=== PATIENT | female | born 1955 | race Caucasian/White ===

== ENCOUNTER 2020-11-05 08:34 | Emergency (ER) | payer OTHER, SELFPAY ==
[2020-11-05 08:42] VITALS: BP 104/46; PULSE 74; RESP 16; TEMP 36.6; O2SAT 100
--- NOTE | 2020-11-05 08:49 | ED.EYEPROB ---
HPI - Eye Problem General Chief complaint: Eye Problems Stated complaint: swollen left eye Source: patient and RN notes reviewed Mode of arrival: ambulatory History of Present Illness HPI Narrative: This is a 65-year-old female who presented to urgent care with complaints of eye redness and watery left eye. That started approximately 1 week ago. Patient does have a history of having styes uses baby shampoo on a daily basis to prevent her stye. She notes that approximately 3 weeks ago she did develop a stye to her left upper lid that she treated with warm compression. She noted that the stye never resolved. She also notes that her left eye started to get red and watery approximately 1 week ago. She also notes that the redness migrated to her right eye. She did not do anything at home to treat her symptoms. Patient will be treated for stye in conjunctivitis. It is noted that she is allergic to erythromycin. She notes that when she take erythromycin she develops nausea and vomiting. She notes that she will be okay with the erythromycin eyedrops. She will discontinue the use of the eyedrops if she develops any unusual symptoms. She denies any visual disturbance. The patient denies SOB, CP, palpitation, extremity numbness, lightheadedness, dizziness, constipation, diarrhea, chills, or fever. MD chief complaint: eye redness Related Data Allergies Allergy/AdvReac Type Severity Reaction Status Date / Time erythromycin base Allergy Nausea Verified 11/05/20 09:51 Review of Systems Review of Systems: A 14 organ system Review of Systems was performed and pertinent positives included in the HPI, otherwise remaining ROS is negative. [facility] Family History Family History (Updated 11/05/20 @ 09:47 by BRIANNA Burch) Other Family history non-contributory Exam Narrative: GENERAL: This is a well-nourished, well-developed patient, in no apparent distress. HEAD: normocephalic, atraumatic. EYES: local inflammation and pustule at the margin of left upper eyelid, erythema bilateral eyes EARS: External ears normal, auditory canals clear and without drainage, TMs normal without perforation. Hearing grossly intact. NOSE: External nose normal with no obvious nasal discharge, nares without redness, no rhinorrhea. THROAT: Mucous membranes moist, posterior pharynx clear. NECK: Neck supple, non-tender without lymphadenopathy, masses or thyromegaly. CARDIOVASCULAR: Regular rate and rhythm without murmurs, gallops, or rubs. RESPIRATORY: Clear to auscultation. Breath sounds equal bilaterally. No wheezes, rales, or rhonchi. GASTROINTESTINAL: Abdomen soft, non-tender, nondistended. Bowel sounds are active. No hepato-splenomegaly, or palpable masses. No guarding. SKIN: warm, intact with no suspicious lesions or rash, good texture and turgor. NEURO: awake, alert, and oriented to person, place and time. There were no obvious focal neurologic abnormalities. Steady gait EXTREMITIES: Normal range of motion. No edema. No calf tenderness. Negative Homans sign bilaterally. BACK: Nontender without deformity or crepitance. No flank tenderness. Course Course Emergency Course: Patient will be treated for conjunctivitis and stye with IV antibiotic drops x7 days and instructed to use warm compression Vital Signs Vital signs: Vital Signs Temperature 97.8 F 11/05/20 08:42 Pulse Rate 74 11/05/20 08:42 Respiratory Rate 16 11/05/20 08:42 Blood Pressure 104/46 L 11/05/20 08:42 Pulse Oximetry 100 11/05/20 08:42 Temperature 97.8 F 11/05/20 08:42 Pulse Rate 74 11/05/20 08:42 Respiratory Rate 16 11/05/20 08:42 Blood Pressure 104/46 L 11/05/20 08:42 Pulse Oximetry 100 11/05/20 08:42 MDM - Eye Problem Differential Diagnosis Differential diagnosis: Likely corneal abrasion, conjunctivitis, acute iritis and periorbital cellulitis Discharge Plan Discharge Clinical Impression: Conjunctivitis Qualifiers: Conjunctivitis type: acu
== END 2020-11-05 09:51 | disposition home or self-care (01) ==
PROVIDERS: Emergency Provider Nurse Practitioner; PCP Family Medicine
DX: H10.33 Unspecified acute conjunctivitis, bilateral (principal); H00.014 Hordeolum externum left upper eyelid
CPT/HCPCS: 99213; G0463

== ENCOUNTER 2020-12-30 09:36 | Emergency (ER) | payer OTHER, SELFPAY ==
--- NOTE | ~2020-12-30 | XR_ITS ---
EXAMINATION: XR foot RT min 3V EXAM DATE: 12/30/2020 09:58 INDICATION: Fall, right foot plantar surface bruising. TECHNIQUE: Right foot dorsoplantar, lateral and oblique projections obtained and reviewed. There is no prior study for comparison. FINDINGS: Right foot surgical changes including bunionectomy, probable 1st metatarsal, proximal phal angeal osteotomies for hallux valgus correction. Also right 2nd proximal interphalangeal joint arthro desis, but joint space appears maintained without solid bone bridging and there is lucency surroundin g the screw bridging the interphalangeal joint which suggests loosening. There are no acute fracture s identified. IMPRESSION: Chronic right foot findings as above. Reviewed, dictated and finalized at location A.
[2020-12-30 09:46] VITALS: BP 105/64; PULSE 88; RESP 16; TEMP 36.9; O2SAT 99
--- NOTE | 2020-12-30 10:27 | ED.LOWEXIN ---
HPI - Extremity Injury (Lower) General Chief Complaint: Extremity Injury, Lower Stated Complaint: Right foot Pain Time Seen by Provider: 12/30/20 09:51 Source: patient and RN notes reviewed Mode of arrival: ambulatory Limitations: no limitations History of Present Illness HPI Narrative: Patient presents today complaining of right foot pain. States she fell off a 4 foot ladder yesterday injuring her the bottom of her right foot. States pain is only present with weightbearing. Denies numbness or tingling in the leg or foot. She is currently pain-free at rest, but increases to 10/10 with weightbearing. She took ibuprofen and applied ice yesterday with mild relief. Denies back pain. MD complaint: foot injury Related Data Home Medications Medication Instructions Recorded Confirmed No Home Medications 12/30/20 12/30/20 Allergies Allergy/AdvReac Type Severity Reaction Status Date / Time erythromycin base Allergy Nausea Verified 12/30/20 09:39 Review of Systems Review of Systems: CONSTITUTIONAL: Denies body aches, fever, chills, or sweats. EYES: Denies visual changes, redness, or discharge. ENT: Denies rhinorrhea, congestion, sore throat, or otalgia. CARDIOVASCULAR: Denies chest pain, palpitations, or edema. RESPIRATORY: Denies cough or dyspnea. GASTROINTESTINAL: Denies abdominal pain, nausea, vomiting, or diarrhea. GENITOURINARY: Denies dysuria or hematuria. SKIN: Denies rash, itching, or wounds. MUSCULOSKELETAL: Denies back pain, or myalgia.+ Right foot injury NEUROLOGIC: Denies headache, numbness, tingling, or weakness. PSYCH: Denies depression or anxiety. [facility] Past Medical History Medical History Skin cancer Surgical History Surgical History History of conization of cervix 3. Hx of colonoscopy 7.17.20 polyps/diverticulosis Family History Family History Father Hypertension Heart problem Cerebrovascular accident Mother Heart problem Grandparent Lung cancer Other Family history non-contributory Social History Social History Smoking status: Never smoker Alcohol intake: current Substance use: never Gender identity (if verbalized by the patient): Female Comments At time of signature, I have reviewed and agree with nursing past medical, surgical, social and family history unless otherwise noted. Please see nursing chart for further information. There is no relevant family history pertinent to the presenting complaint Exam Narrative: GENERAL: Well-appearing, well-nourished, and in no acute distress. HEAD: Normocephalic, atraumatic. EYES: EOMI. No redness or drainage. Conjunctivae normal. ENT: Mucous membranes pink and moist. NECK: Normal AROM. CHEST: No respiratory distress. EXTREMITIES:Right foot: Tenderness and ecchymosis to the plantar aspect of the foot, most tender to the heel and distal arch. Distal sensation intact. Capillary refill normal. Pedal pulse normal. Patient has a small amount of localized edema to the distal arch. SKIN: Warm, dry, no rash. Capillary refill normal. Normal skin turgor. NEURO: No focal deficits. Alert and oriented x3. Gait steady. PSYCH: Normal affect. No signs of depression or anxiety. Course Vital Signs Vital signs: Vital Signs Temperature 98.4 F 12/30/20 09:46 Pulse Rate 88 12/30/20 09:46 Respiratory Rate 16 12/30/20 09:46 Blood Pressure 105/64 12/30/20 09:46 Pulse Oximetry 99 12/30/20 09:46 Temperature 98.4 F 12/30/20 09:46 Pulse Rate 88 12/30/20 09:46 Respiratory Rate 16 12/30/20 09:46 Blood Pressure 105/64 12/30/20 09:46 Pulse Oximetry 99 12/30/20 09:46 Reviewed MDM - Extremity Injury (Lower) Differential Diagnosis Differential diagno
== END 2020-12-30 10:30 | disposition home or self-care (01) ==
PROVIDERS: Emergency Provider Nurse Practitioner; PCP Family Medicine
DX: S90.31XA Contusion of right foot, initial encounter (principal); W11.XXXA Fall on and from ladder, initial encounter; Z85.828 Personal history of other malignant neoplasm of skin
CPT/HCPCS: 73630; 99213; G0463

== ENCOUNTER 2021-04-01 12:46 | Outpatient (CLI) | payer OTHER, SELFPAY ==
--- NOTE | ~2021-04-01 | DEXA_ITS ---
Bone Density Report Name: NARA BRADLEY Age: 65 Sex: Female Ethnicity: White Date of : 1955 Indication: postmenopausal; height loss; Referring Provider: GLORIA JOSEPH Study: Bone densitometry was performed. Exam Date: April 01, 2021 Accession number: [id number] Bone Density: Region BMD T-score Z-score Classification AP Spine (L1, L4) 0.860 -1.6 0.2 Osteopenia Femoral Neck (Left) 0.670 -1.6 -0.1 Osteopenia Total Hip (Left) 0.887 -0.5 0.8 Normal Total Hip Bilateral Avg 0.858 -0.7 0.6 Normal Femoral Neck (Right) 0.664 -1.7 -0.1 Osteopenia Total Hip (Right) 0.828 -0.9 0.3 Normal World Health Organization criteria for BMD impression classify patients as: Normal (T-score at or above -1.0), Osteopenia (T-score between -1.0 and -2.5), or Osteoporosis (T-score at or below -2.5). 10-year Fracture Risk(1): Major Osteoporotic Fracture 8.0% Hip Fracture 1.0% Reported Risk Factors: [place] (), Neck BMD=0.664, BMI=19.5 (1) FRAX(R) Version 3.08. Fracture probability calculated for an untreated patient. Fracture probability may be lower if the patient has received treatment. Clinical Information Provided by Patient: Has used the following medications: Vitamin D, Calcium Patient maximum height was 64 Menopause Age: 53 Drinks caffeinated beverages Onset of menses at age 14 Number of children 1 Impression: The patient has low bone mass, based on the Right Femoral Neck T-score. The patient has an estimated ten-year risk of hip fracture of 1% and an estimated ten-year risk of major fracture of 8%, based on the WHO FRAX algorithm. Discussion: BONE DENSITY IS LOW AT ONE OR MORE SKELETAL SITES. This patient's lowest T-score is low at one or more skeletal sites. It meets the World Health Organization's (WHO) criteria for ?low bone mass? (T-score between -1.0 and -2.5). The patient's 10-year risk of fracture as calculated by FRAX is less than the threshold where pharmacological therapy is recommended by the National Osteoporosis Foundation (NOF). However, all treatment decisions require clinical judgment and consideration of individual patient factors, including patient preferences, comorbidities, previous drug use, risk factors not captured in the FRAX model (e.g., frailty, falls, vitamin D deficiency, increased bone turnover, interval significant decline in bone density) and possible under or overestimation of fracture risk by FRAX. The patient should follow a healthful lifestyle (good nutrition with adequate calcium and vitamin D, and appropriate weight-bearing exercise). Follow-Up: Consider repeating this study in 2 to 3 years to reassess this patient's status, or sooner if there is some new clinical indication. Reported by: RADHA on 04/01/2021 1:07:00 PM.
== END 2021-04-01 12:47 | disposition home or self-care (01) ==
LOC: ANHIMG 12:48
PROVIDERS: PCP Family Medicine; Visit Provider Family Medicine
DX: Z78.0 Asymptomatic menopausal state (principal); M85.88 Other specified disorders of bone density and structure, other site; M85.851 Other specified disorders of bone density and structure, right thigh; M85.852 Other specified disorders of bone density and structure, left thigh
CPT/HCPCS: 77080

== ENCOUNTER 2021-07-23 07:04 | Emergency (ER) | payer OTHER, SELFPAY ==
--- NOTE | ~2021-07-23 | XR_ITS ---
EXAMINATION: XR chest 2V EXAM DATE: 07/23/2021 07:46 INDICATION: Left-sided chest pain tingling down left arm. TECHNIQUE: Frontal and lateral projections of the chest obtained and reviewed. There is no prior darryl dy for comparison. FINDINGS: Mild hyperinflation. The lungs are clear. There are no pleural effusions. The cardiomedia stinal silhouette is within normal limits. There is no pneumothorax suspected. There are no osseous abnormalities identified. IMPRESSION: Mild hyperinflation. No acute cardiopulmonary findings. Reviewed, dictated and finalized at location A.
--- NOTE | 2021-07-23 07:06 | ECG_ITS ---
Measurements Intervals [place] Rate: 92 P: 79 NC: 161 QRS: 99 QRSD: 86 T: 51 QT: 349 QTc: 434 Interpretive Statements SINUS RHYTHM LOW-VOLTAGE QRS IN LIMB LEADS RSR' V1 AND V2 POSSIBLE LEFT ATRIAL ENLARGEMENT [-0.1mV P-WAVE IN V1/V2] BORDERLINE ECG NO PREVIOUS ECG AVAILABLE FOR COMPARISON Electronically Signed On 07-23-2021 16:48:45 CDT by Gasper Nelson M.D.
[2021-07-23 07:13] VITALS: BP 158/68; PULSE 94; RESP 20; TEMP 36.8; O2SAT 100
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
[2021-07-23] MEDS: LORazepam INJ (*CRX) 2 MG/ML VIAL 1 MG IV PUSH (07:39)
[2021-07-23 07:44] VITALS: O2SAT 100
[2021-07-23 07:47] LABS: Alanine Aminotransferase 28 U/L (4-35); Albumin Level 4.6 g/dL (3.5-5.1); Alkaline Phosphatase 69 U/L (38-126); Anion Gap 8 mmol/L (8-16); Aspartate Amino Transferase 30 U/L (14-36); Basophils Absolute Auto 0.1 K/mm3 (0.0-0.1); Basophils Percent Auto 0.8 % (0.2-1.2); Bilirubin,Total 0.5 mg/dL (0.2-1.3); Blood Urea Nitrogen 16 mg/dL (7-17); Calcium 9.9 mg/dL (8.4-10.2); Carbon Dioxide 24 mmol/L (22-30); Chloride 105 mmol/L (98-107); Eosinophils Absolute Auto 0.2 K/mm3 (0-0.3); Eosinophils Percent Auto 3.4 % (0-4.4); Estimated CRCL calculation 54 ml/min; Estimated Glomerular Filt Rate > 60; Glucose 127 mg/dL (65-110); Hematocrit 42.1 % (37.0-47.0); Hemoglobin 14.1 g/dL (12.0-15.0); Immature Granulocyte Absolute 0.01 K/mm3 (0.00-0.031); Immature Granulocyte Percent A 0.2 % (0-0.5); Lipase 200 U/L (23-300); Lymphocytes Absolute Auto 2.48 K/mm3 (0.9-3.2); Mean Corpuscular HGB Conc 33.5 g/dl (32-36); Mean Corpuscular Hemoglobin 30.9 pg (26-34); Mean Corpuscular Volume 92.3 fl (80-100); Mean Platelet Volume 10.3 fl (7.4-10.4); Monocytes Absolute Auto 0.5 K/mm3 (0.1-0.6); Monocytes Percent Auto 7.7 % (2.6-8.5); Neutrophils Percent Auto 47.9 % (45.5-73.1); Platelet Count Result 374 k/mm3 (150-375); Potassium 3.6 mmol/L (3.4-5.0); Red Blood Count 4.56 M/mm3 (4.2-5.4); Red Cell Distribution Width 12.8 % (11.5-14.5); Sodium 137 mmol/L (137-145); White Blood Count 6.2 K/mm3 (4.5-10.0)
[2021-07-23 07:48] LABS: Prothrombin Time 12.3 Seconds (11.1-14.7)
[2021-07-23 07:49] LABS: Partial Thromboplastin Time 23.3 SECONDS (22.3-36.8)
[2021-07-23 07:51] VITALS: BP 129/51; PULSE 73; RESP 12; O2SAT 97
[2021-07-23 07:59] LABS: Troponin I < 0.012 ng/mL (0.000-0.034)
[2021-07-23 08:37] VITALS: BP 117/61; PULSE 71; RESP 16; O2SAT 98
== END 2021-07-23 08:38 | disposition home or self-care (01) ==
PROVIDERS: Family Medicine; Emergency Provider Emergency Medicine; PCP Family Medicine
DX: F41.9 Anxiety disorder, unspecified (principal); R07.9 Chest pain, unspecified; Z85.828 Personal history of other malignant neoplasm of skin; R94.31 Abnormal electrocardiogram [ECG] [EKG]
CPT/HCPCS: 36415; 71046; 80053; 83690; 84484; 85025; 85610; 85730; 93005; 96374; 99284; J2060

== ENCOUNTER 2022-09-16 12:06 | Outpatient (NON) | payer OTHER, SELFPAY | END 2022-09-16 12:07 | disposition home or self-care (01) | LOC: ANHLAB 09-17 12:08 | PROVIDERS: PCP Family Medicine; Visit Provider Nurse Practitioner | DX: R22.9 Localized swelling, mass and lump, unspecified (principal) | CPT/HCPCS: 88304 ==

== ENCOUNTER 2023-01-10 13:54 | Outpatient (CLI) | payer OTHER, SELFPAY ==
--- NOTE | ~2023-01-10 | CT_ITS ---
EXAMINATION: CT abdomen pelvis wo con DATE: 01/10/2023 14:17 INDICATION: Left lower quadrant pain. Diarrhea. TECHNIQUE: Computed tomography (CT) of the abdomen and pelvis was performed without intravenous contr ast. The dose-length product was 191.19 mGy-cm. Automated exposure control and iterative reconstructi on technique were employed. COMPARISON: None. FINDINGS: Lung bases unremarkable. No significant pleural or pericardial effusion. There are partiall y characterized by bilateral breast implants. No significant vascular abnormality. No lymphadenopathy . The liver, spleen, pancreas, adrenal glands and kidneys are unremarkable. No hydronephrosis. There is moderate lumbar spondylosis. No acute osseous abnormality. Nonobstructive bowel gas pattern. No free air or free fluid. IMPRESSION: 1. No acute abdominal abnormality. Reviewed, dictated and finalized at location B.
== END 2023-01-10 13:55 | disposition home or self-care (01) ==
PROVIDERS: PCP Family Medicine; Visit Provider Nurse Practitioner Family
DX: R10.32 Left lower quadrant pain (principal); R19.7 Diarrhea, unspecified
CPT/HCPCS: 74176

== ENCOUNTER 2023-06-20 14:41 | Outpatient (CLI) | payer OTHER, SELFPAY ==
--- NOTE | ~2023-06-20 | CT_ITS ---
EXAMINATION: CT abdomen pelvis wo con DATE: 06/20/2023 15:09 INDICATION: Left lower quadrant abdominal pain. Diverticulitis TECHNIQUE: Computed tomography (CT) of the abdomen and pelvis was performed without intravenous contr ast. Automated exposure control and iterative reconstruction technique were employed. Exam dose: 211 .05 mGy-cm total exam DLP. COMPARISON: 01/20/2023 CT abdomen pelvis FINDINGS: Bilateral breast implants are noted. The lung bases are clear of infiltrate or consolidatio n. Normal heart size. No pericardial or pleural effusion. No hepatic, splenic, pancreatic, and adrenal or renal space-occupying mass lesion is evident. No bile duct or pancreatic duct dilatation is detected. No urinary tract calculus or hydroureteronephrosis. The urinary bladder, uterus and adnexal areas are unremarkable. Normal caliber and atherosclerotic calcification of the abdominal aorta. No intraperitoneal or retrop eritoneal or pelvic mass lesion or adenopathy or ascites is detected. No bowel obstruction or intraperitoneal free air. Multilevel degenerative disc disease of lumbar spine, most severe at L2-3 and L3-4. No suspicious ost eolytic or osteoblastic lesions are noted. IMPRESSION: No evidence of diverticulitis Reviewed, dictated and finalized at Location A. Reviewed, dictated and finalized at location B.
== END 2023-06-20 14:42 ==
PROVIDERS: PCP Family Medicine; Visit Provider Family Medicine
DX: K57.92 Diverticulitis of intestine, part unspecified, without perforation or abscess without bleeding (principal)
CPT/HCPCS: 74176

== ENCOUNTER 2023-11-25 08:27 | Outpatient (CLI) | payer OTHER, SELFPAY ==
--- NOTE | ~2023-11-25 | DEXA_ITS ---
Bone Density Report Name: NARA BRADLEY Age: 68 Sex: Female Ethnicity: White Date of : 1955 Indication: postmenopausal; screening for osteoporosis; height loss; cancer; Referring Provider: EDWIN, AARTI Hussein Study: Bone densitometry was performed. Exam Date: November 25, 2023 Accession number: [id number] Bone Density: Region BMD T-score Z-score Classification AP Spine(L1-L4) 1.016 -0.3 1.7 Normal Femoral Neck (Left) 0.688 -1.4 0.2 Osteopenia Total Hip (Left) 0.858 -0.7 0.7 Normal Femoral Neck (Right) 0.671 -1.6 0.1 Osteopenia Total Hip (Right) 0.811 -1.1 0.3 Osteopenia Total Hip Mean 0.835 -0.9 0.5 Normal World Health Organization criteria for BMD impression classify patients as: Normal (T-score at or above -1.0), Osteopenia (T-score between -1.0 and -2.5), or Osteoporosis (T-score at or below -2.5). 10-year Fracture Risk(1): Major Osteoporotic Fracture 8.4% Hip Fracture 1.3% Reported Risk Factors: [place] (), Neck BMD=0.671, BMI=19.0 (1) FRAX(R) Version 3.08. Fracture probability calculated for an untreated patient. Fracture probability may be lower if the patient has received treatment. Previous Exams: Region Exam Age BMD T-score BMD Change BMD Change Date g/cm2 vs Baseline vs Previous Total Hip(Left) 11/25/2023 68 0.858 -0.7 -0.029 (-3.2%) -0.029 (-3.2%) 04/01/2021 65 0.887 -0.5 Total Hip(Right) 11/25/2023 68 0.811 -1.1 -0.017 (-2.1%) -0.017 (-2.1%) 04/01/2021 65 0.828 -0.9 *Denotes significance at 95% confidence level, LSC for Total Hip = 0.027 g/cm2 # Denotes dissimilar scan types or analysis methods Clinical Information Provided by Patient: Has used the following medications: Vitamin D, Calcium Has the following medical conditions: Cancer Patient maximum height was 64 Menopause Age: 53 Drinks caffeinated beverages Onset of menses at age 15 Number of children 1 Impression: The patient has low bone mass, based on the Right Femoral Neck T-score. The patient has an estimated ten-year risk of hip fracture of 1.3% and an estimated ten-year risk of major fracture of 8.4%, based on the WHO FRAX algorithm. No significant bone loss was observed. Discussion: BONE DENSITY IS LOW AT ONE OR MORE SKELETAL SITES. This patient's lowest T-score is low at one or more skeletal sites. It meets the World Health Organization's (WHO) criteria for ?low bone mass? (T-score between -1.0 and -2.5). The patient's 10-year risk of fracture
== END 2023-11-25 08:28 | disposition home or self-care (01) ==
LOC: ANHIMG 08:28
PROVIDERS: PCP Family Medicine; Visit Provider Family Medicine
DX: Z78.0 Asymptomatic menopausal state (principal); Z13.820 Encounter for screening for osteoporosis; M85.852 Other specified disorders of bone density and structure, left thigh; M85.851 Other specified disorders of bone density and structure, right thigh
CPT/HCPCS: 77080

== ENCOUNTER 2023-12-07 18:48 | Emergency (ER) | payer OTHER, SELFPAY ==
--- NOTE | ~2023-12-07 | XR_ITS ---
EXAMINATION: XR chest 2V DATE: 12/07/2023 19:16 INDICATION: Chest pain. Upper respiratory infection. TECHNIQUE: Frontal and lateral views of the chest were obtained. COMPARISON: Chest 2 views 07/23/2021 FINDINGS: There is mild scarring at the lung apices. No pleural effusion or pneumothorax. The heart s ize is normal. Breast implants are noted. IMPRESSION: 1. No acute cardiopulmonary disease. Reviewed, dictated and finalized at location A.
--- NOTE | 2023-12-07 18:49 | ECG_ITS ---
Test Date: 2023-12-07 19:01:37 Measurements Intervals [place] Rate: 81 P: 80 MO: 163 QRS: 107 QRSD: 85 T: 79 QT: 372 QTc: 432 Interpretive Statements SINUS RHYTHM RIGHT AXIS DEVIATION RIGHT VENTRICULAR CONDUCTION DELAY DELAYED PRECORDIAL R/S TRANSITION LOW QRS VOLTAGE IN PRECORDIAL LEADS BORDERLINE ECG No previous ECG available for comparison Electronically Signed On 12-07-2023 20:06:37 CDT by Juan Diego Guevara D.O.
[2023-12-07 18:53] VITALS: BP 151/73; PULSE 83; RESP 16; TEMP 36.4; O2SAT 100
[2023-12-07 19:21] LABS: Basophils Absolute Auto 0.1 K/mm3 (0.0-0.1); Basophils Percent Auto 0.9 % (0.2-1.2); Eosinophils Absolute Auto 0.3 K/mm3 (0-0.3); Hematocrit 40.4 % (37.0-47.0); Hemoglobin 13.6 g/dL (12.0-15.0); Immature Granulocyte Absolute 0.01 K/mm3 (0.00-0.031); Immature Granulocyte Percent A 0.2 % (0-0.5); Lymphocytes Absolute Auto 2.42 K/mm3 (0.9-3.2); Lymphocytes Percent Auto 37.3 % (18.3-44.2); Mean Corpuscular HGB Conc 33.7 g/dl (32-36); Mean Corpuscular Hemoglobin 31.5 pg (26-34); Mean Corpuscular Volume 93.5 fl (80-100); Mean Platelet Volume 10.2 fl (7.4-10.4); Monocytes Absolute Auto 0.5 K/mm3 (0.1-0.6); Monocytes Percent Auto 7.1 % (2.6-8.5); Neutrophils Absolute Auto 3.3 K/mm3 (1.3-6.7); Neutrophils Percent Auto 50.5 % (45.5-73.1); Platelet Count Result 320 k/mm3 (150-375); Red Blood Count 4.32 M/mm3 (4.2-5.4); Red Cell Distribution Width 12.2 % (11.5-14.5); White Blood Count 6.5 K/mm3 (4.5-10.0)
[2023-12-07 19:31] LABS: Alanine Aminotransferase 25 U/L (6-35); Albumin Level 4.5 g/dL (3.5-5.1); Alkaline Phosphatase 45 U/L (38-126); Anion Gap 10 mmol/L (4-12); Aspartate Amino Transferase 30 U/L (14-36); Bilirubin,Total 0.3 mg/dL (0.2-1.3); Blood Urea Nitrogen 20 mg/dL (7-17); Calcium 9.7 mg/dL (8.4-10.2); Carbon Dioxide 28 mmol/L (22-30); Chloride 100 mmol/L (98-107); Estimated CRCL calculation 59 ml/min; Estimated Glomerular Filt Rate > 60; Glucose 109 mg/dL (65-110); Lipase 276 U/L (23-300); Sodium 138 mmol/L (137-145)
[2023-12-07 19:34] LABS: INR 0.9; Partial Thromboplastin Time 22.3 Seconds (22.3-36.8); Prothrombin Time 12.3 Seconds (11.1-14.7)
[2023-12-07 19:42] LABS: Troponin I < 0.012 ng/mL (0.000-0.034)
[2023-12-07 21:32] VITALS: BP 128/71; PULSE 83; RESP 14; O2SAT 100
[2023-12-07 21:40] VITALS: O2SAT 100
--- NOTE | 2023-12-07 21:41 | ECG_ITS ---
Test Date: 2023-12-07 21:44:17 Measurements Intervals [place] Rate: 79 P: 73 ME: 206 QRS: 84 QRSD: 94 T: 65 QT: 371 QTc: 428 Interpretive Statements SINUS RHYTHM DELAYED PRECORDIAL R/S TRANSITION BORDERLINE ECG Compared to ECG 12/07/2023 19:01:37 NO SIGNIFICANT CHANGE Electronically Signed On 12-08-2023 14:10:02 CDT by Juan Diego Guevara D.O.
[2023-12-07 21:58] VITALS: BP 114/71; PULSE 95; RESP 14; O2SAT 100
[2023-12-07 22:18] LABS: Troponin I < 0.012 ng/mL (0.000-0.034)
[2023-12-07 22:32] LABS: Influenza A QL RT-PCR Negative (Negative); Influenza B QL RT-PCR Negative (Negative); RSV RNA, RT-PCR Negative (Negative); SARS-CoV-2 RNA PCR Negative (Negative)
--- NOTE | 2023-12-07 22:41 | ED.GENADULT ---
HPI - General Adult General Chief complaint: Chest Pain Stated complaint: chest pain Time Seen by Provider: 12/07/23 21:31 History of Present Illness HPI narrative: This is a 60-year-old female presenting ED chief complaint of URI symptoms. Patient developed URI symptoms on November 20. She was eventually treated with Augmentin by primary care physician. However she is still feelin patient denies fevers chills shortness of breath, nausea vomiting diarrhea abdominal pain urinary symptoms. He has been eating and drinking well. Today she felt a small amount of chest tightness. The patient is concerned because she is just not getting better. Related Data Allergies Allergy/AdvReac Type Severity Reaction Status Date / Time erythromycin base Allergy Nausea Verified 05/19/21 08:57 [facility] Past Medical History Medical History Neoplasm of uncertain behavior of skin Skin cancer Surgical History Surgical History History of conization of cervix 3 Hx of colonoscopy 10.18. polyps/diverticulosis Family History Family History Father Hypertension Heart problem Cerebrovascular accident Mother Heart problem Grandparent Lung cancer Other Family history non-contributory Social History Social History Alcohol intake: current Substance use: never Living arrangements: with family Occupation/Education: retired Gender identity (if verbalized by the patient): Female Exam Narrative: APPEARANCE: Anxious but well-appearing Head: atraumatic. EYES: EOMI, NOSE: Atraumatic NECK: Trachea midline RESPIRATORY: No increased rate of breathing clear to auscultation CARDIOVASCULAR: RRR, no peripheral edema ABDOMINAL: Non-distended soft nontender MUSCULOSKELETAl: No obvious deformities NEURO: Alert. Moving 4/4 extremities SKIN:: Warm, dry. Normal color PSYCHIATRIC: Normal affect Course Vital Signs Vital signs: Vital Signs Temperature 97.6 F 12/07/23 18:53 Pulse Rate 83 12/07/23 18:53 Respiratory Rate 16 12/07/23 18:53 Blood Pressure 151/73 H 12/07/23 18:53 Pulse Oximetry 100 12/07/23 18:53 Oxygen Delivery Room Air 12/07/23 18:53 Temperature 97.6 F 12/07/23 18:53 Pulse Rate 95 12/07/23 21:58 Respiratory Rate 14 12/07/23 21:58 Blood Pressure 114/71 12/07/23 21:58 Pulse Oximetry 100 12/07/23 21:58 Oxygen Delivery Room Air 12/07/23 21:40 Medical Decision Making MDM Narrative Medical decision making narrative: -Course: 68-year-old female presenting with URI symptoms since November 20. Patient is well-appearing on exam with stable vital signs. White count is normal. Afebrile. Chest x-ray negative, viral swabs negative. Patient was given some fluids and symptom control is feeling well. Patient was reassured. Patient discharged follow-up with her primary care physician. Given return precautions. -DDX includes but is not limited to: URI, pneumonia, sinusitis, viral syndrome -Independent interpretation of studies: Labs reviewed Imaging reviewed Viral swabs negative Independent EKG interpretation: Rhythm [sinus], Rate [81], Basom -[normal], [place] -[normal], QRS [narrow], QTC [normal], T waves -[negative for concerning inversions], ST Segments - [Negative for concerning elevations] Final interpretations: [Normal Sinus Rhythm] -Interventions: Toradol, dexamethasone -Shared decision making / Disposition: Discharge -RX Motrin, Tylenol Vital Signs Vital Signs: Vital Signs Temperature 97.6 F 12/07/23 18:53 Pulse Rate 83 12/07/23 18:53 Respiratory Rate 16 12/07/23 18:53 Blood Pressure 151/73 H 12/07/23 18:53 Pulse Oximetry 100 12/07/23 18:53 Oxygen Delivery Room Air 12/07/23 18:53 Temperature 97.6 F 12/07/23 18:53 Pul
[2023-12-07 23:24] VITALS: BP 121/66; PULSE 72; RESP 14; TEMP 36.7; O2SAT 100
[2023-12-07] MEDS: KETOROLAC 15 MG/ML VIAL (*BKC) IV PUSH (23:24)
[2023-12-07] MEDS: dexAMETHasone SOD PHOS INJ 10 MG/ML 1 ML VIAL IV PUSH (23:24)
== END 2023-12-07 23:50 | disposition home or self-care (01) ==
PROVIDERS: Emergency Medicine; Emergency Provider Emergency Medicine; PCP Family Medicine
DX: B34.9 Viral infection, unspecified (principal); Z20.822 Contact with and (suspected) exposure to COVID-19
CPT/HCPCS: 36415; 71046; 80053; 83690; 84484; 85025; 85610; 85730; 87637; 93005; 96374; 96375; 99284; J1100; J1885

== ENCOUNTER 2023-12-16 11:11 | Emergency (ER) | payer OTHER, SELFPAY ==
[2023-12-16] VITALS (14 sets, daily range): BP systolic 112–135; BP diastolic 51–79; PULSE 64–102; RESP 14–24; TEMP 36.4–36.6; O2SAT 94–100
--- NOTE | ~2023-12-16 | XR_ITS ---
EXAMINATION: XR chest 2V DATE: 12/16/2023 13:54 INDICATION: Shortness of breath. Upper anterior chest pain. TECHNIQUE: Frontal and lateral views of the chest were obtained. COMPARISON: Chest 2 views 12/07/2023 FINDINGS: There is stable mild scarring at the lung apices. No pleural effusion or pneumothorax. The heart size is normal. Breast implants are noted. IMPRESSION: 1. No acute cardiopulmonary disease. Reviewed, dictated and finalized at location A.
--- NOTE | 2023-12-16 11:12 | ECG_ITS ---
Test Date: 2023-12-16 11:23:16 Measurements Intervals [place] Rate: 70 P: 82 CO: 180 QRS: 95 QRSD: 92 T: 70 QT: 390 QTc: 422 Interpretive Statements SINUS RHYTHM RIGHT AXIS DEVIATION INCOMPLETE RIGHT BUNDLE BRANCH BLOCK BORDERLINE ECG Compared to ECG 12/07/2023 21:44:17 NO SIGNIFICANT CHANGE Electronically Signed On 12-16-2023 11:25:03 CDT by Juan Diego Guevara D.O.
--- NOTE | 2023-12-16 12:37 | ED.CHESTPAIN ---
HPI - Chest Pain General Chief Complaint: Chest Pain <RHYS Mueller Last Filed: 12/16/23 12:43> Stated Complaint: chest pain <RHYS Mueller Last Filed: 12/16/23 12:43> Time Seen by Provider: 12/16/23 12:37 <Emilia Higgins PA-C - Last Filed: 12/16/23 12:43> Focused HPI: Patient is a 68 y/o female who presents to the ED with multiple complaints. Patient reports she developed URI sx's around 1 month ago. Was dx'd with an ear infection, sinus infection. Was seen in the ED last week and had some chest tightness. W/u was reassuring, was diagnosed with viral syndrome. Patient reports symptoms have continued. Patient feels weak, fatigued, lethargic. She also reports having ongoing L sided CP, lower abdominal discomfort, shortness of breath, sinus drainage, mild cough, chills, and numbness from her arms down to her toes. Denies pain or swelling in extremities, dysuria, hematuria, N/V, known fevers. GENERAL: Fatigued and anxious-appearing, thin, and in no acute distress. HEAD: Normocephalic, atraumatic. CHEST: Clear to auscultation. ?No respiratory distress. HEART: Regular rate and rhythm.? NEURO: ?Alert and oriented x3. Patient screened in triage and initial orders placed.? ?Additional care and disposition to be based upon?diagnostic testing and treatment. <Emilia Higgins PA-C - Last Filed: 12/16/23 12:43> Source: patient and old records reviewed <RHYS Mueller Last Filed: 12/16/23 12:43> Mode of arrival: ambulatory <RHYS Mueller Last Filed: 12/16/23 12:43> Limitations: no limitations <RHYS Mueller Last Filed: 12/16/23 12:43> History of Present Illness HPI narrative: Agree with HPI. Reports persistent chest tightness over 1 week. She reports significant water intake, approximately 18 cups of water today. <Garfield Ordaz MD - Last Filed: 12/16/23 18:26> Related Data Allergies/Adverse Reactions: Allergies Allergy/AdvReac Type Severity Reaction Status Date / Time erythromycin base Allergy Nausea Verified 12/16/23 13:09 <Emilia Higgins PA-C - Last Filed: 12/16/23 12:43> Review of Systems Review of Systems: All systems reviewed & are unremarkable except as noted in HPI and below <Garfield Ordaz MD - Last Filed: 12/16/23 18:26> Constitutional: Constitutional: Denies chills, Reports fatigue, Denies fever(s) and Reports weakness <Garfield Ordaz MD - Last Filed: 12/16/23 18:26> ENT: Reports system reviewed and no additional complaints, except as documented <Garfield Ordaz MD - Last Filed: 12/16/23 18:26> Cardiovascular: Cardiovascular: Reports chest pain, Denies rapid heart rate and Denies radiating jaw, neck or arm pain <Garfield Ordaz MD - Last Filed: 12/16/23 18:26> Respiratory: Respiratory: Reports no additional respiratory complaints <Garfield Ordaz MD - Last Filed: 12/16/23 18:26> Gastrointestinal: Gastrointestinal: Reports no additional gastrointestinal complaints <Garfield Ordaz MD - Last Filed: 12/16/23 18:26> Integumentary/Breasts: Skin/Breast: Reports system reviewed and no additional complaints, except as docu <Garfield Ordaz MD - Last Filed: 12/16/23 18:26> [facility] Past Medical History Medical History: Medical History Neoplasm of uncertain behavior of skin Skin cancer <Emilia Higgins PA-C - Last Filed: 12/16/23 12:43> Surgical History Surgical History: Surgical History History of conization of cervix 3.30.2015 Hx of colonoscopy 7.17.20 polyps/diverticulosis <Emilia Higgins PA-C - Last Filed: 12/16/23 12:43> Family History Family History: Family History Father Hypertension Heart problem Cerebrovascular accident Mother Heart problem Gra
--- NOTE | 2023-12-16 12:41 | PC.NURSE ---
while in triage, instructional design technologist Carolina was getting blood work and patient states to staff that she feels like she's going to pass out. patient then became diaphoretic and began having brief LOC. during this time instructional design technologist stayed by patient and safely removed needle. instructional design technologist notified fructose loader who stayed by patient while instructional design technologist got ice for them. patient is currently back to baseline with normal color, but is diaphoretic.
[2023-12-16 12:44] LABS: Basophils Percent Auto 0.6 % (0.2-1.2); Eosinophils Percent Auto 0.6 % (0-4.4); Hematocrit 41.1 % (37.0-47.0); Immature Granulocyte Absolute 0.02 K/mm3 (0.00-0.031); Immature Granulocyte Percent A 0.3 % (0-0.5); Lymphocytes Absolute Auto 1.61 K/mm3 (0.9-3.2); Lymphocytes Percent Auto 22.5 % (18.3-44.2); Mean Corpuscular HGB Conc 34.1 g/dl (32-36); Mean Corpuscular Hemoglobin 31.4 pg (26-34); Mean Corpuscular Volume 92.2 fl (80-100); Mean Platelet Volume 10.6 fl (7.4-10.4); Monocytes Absolute Auto 0.5 K/mm3 (0.1-0.6); Monocytes Percent Auto 7.1 % (2.6-8.5); Neutrophils Absolute Auto 4.9 K/mm3 (1.3-6.7); Neutrophils Percent Auto 68.9 % (45.5-73.1); Platelet Count Result 304 k/mm3 (150-375); Red Blood Count 4.46 M/mm3 (4.2-5.4); Red Cell Distribution Width 12.1 % (11.5-14.5); White Blood Count 7.1 K/mm3 (4.5-10.0)
[2023-12-16 12:55] LABS: Alanine Aminotransferase 38 U/L (6-35); Albumin Level 4.3 g/dL (3.5-5.1); Alkaline Phosphatase 49 U/L (38-126); Anion Gap 13 mmol/L (4-12); Aspartate Amino Transferase 36 U/L (14-36); Bilirubin,Total 0.4 mg/dL (0.2-1.3); Blood Urea Nitrogen 14 mg/dL (7-17); Calcium 9.6 mg/dL (8.4-10.2); Carbon Dioxide 23 mmol/L (22-30); Chloride 90 mmol/L (98-107); Estimated CRCL calculation 55 ml/min; Estimated Glomerular Filt Rate > 60; Glucose 109 mg/dL (65-110); Lipase 192 U/L (23-300); Potassium 3.8 mmol/L (3.4-5.0); Sodium 126 mmol/L (137-145)
[2023-12-16 13:07] LABS: Troponin I < 0.012 ng/mL (0.000-0.034)
[2023-12-16 13:19] LABS: Magnesium 1.8 mg/dL (1.6-2.3)
[2023-12-16 13:20] LABS: INR 0.9
[2023-12-16 13:21] LABS: Partial Thromboplastin Time 22.1 Seconds (22.3-36.8)
[2023-12-16 13:47] LABS: Influenza A QL RT-PCR Negative (Negative); Influenza B QL RT-PCR Negative (Negative); RSV RNA, RT-PCR Negative (Negative); SARS-CoV-2 RNA PCR Negative (Negative)
--- NOTE | 2023-12-16 14:15 | ECG_ITS ---
Test Date: 2023-12-16 14:22:24 Measurements Intervals [place] Rate: 71 P: 75 [place]: 183 QRS: 60 QRSD: 92 T: 63 QT: 403 QTc: 438 Interpretive Statements SINUS RHYTHM INCOMPLETE RIGHT BUNDLE BRANCH BLOCK BORDERLINE ECG Compared to ECG 12/16/2023 11:23:16 NO SIGNIFICANT CHANGE Electronically Signed On 12-16-2023 14:43:29 CDT by Juan Diego Guevara D.O.
[2023-12-16] MEDS: LORazepam INJ (*CRX) 2 MG/ML VIAL 0.5 MG IV PUSH (14:25)
[2023-12-16 14:47] LABS: Troponin I < 0.012 ng/mL (0.000-0.034)
[2023-12-16 14:53] LABS: Add Urine Microscopic? YES; Appearance Urine Clear (Clear); Bacteria Urine None Seen /hpf; Bilirubin Urine Negative (Negative); Blood Urine Negative (Negative); Color Urine Yellow (Yellow); Glucose Urine UA Negative (Negative); Ketones Urine 2+ mg/dL (Negative); Leukocyte Esterase Ur Negative LEU/UL (Negative); Nitrate Urine Negative (Negative); Non Pathogenic Casts 0-2; Protein Urine Trace mg/dL (Negative); RBC Urine 0-2 /hpf (0-2); Specific Grav Ur 1.009 (1.001-1.035); Squamous Epithelial Cell Urine None Seen /hpf (Few); Urobilinogen Urine 0.2 mg/dL (<2.0); WBC Urine 0-5 /hpf (0-3); pH Urine 8.5 (5.0-9.0)
[2023-12-16 14:54] LABS: Free T4 Free Thyroxine Reflex 1.13 ng/dL (0.78-2.19)
[2023-12-16 15:52] LABS: Total Triiodothyronine (T3) 1.25 NG/ML (0.97-1.69)
--- NOTE | 2023-12-16 17:26 | ECG_ITS ---
Test Date: 2023-12-16 17:35:35 Measurements Intervals [place] Rate: 90 P: 80 [place]: 190 QRS: 96 QRSD: 80 T: 76 QT: 366 QTc: 450 Interpretive Statements SINUS RHYTHM RIGHT AXIS DEVIATION INCOMPLETE RIGHT BUNDLE BRANCH BLOCK BORDERLINE ECG Compared to ECG 12/16/2023 14:22:24 NO SIGNIFICANT CHANGE Electronically Signed On 12-16-2023 20:25:14 CDT by Juan Diego Guevara D.O.
[2023-12-16 17:57] LABS: Troponin I < 0.012 ng/mL (0.000-0.034)
== END 2023-12-16 18:35 | disposition home or self-care (01) ==
PROVIDERS: Physician Assistant; Emergency Provider Emergency Medicine; PCP Family Medicine
DX: R07.9 Chest pain, unspecified (principal); E87.1 Hypo-osmolality and hyponatremia; F41.9 Anxiety disorder, unspecified; Z20.822 Contact with and (suspected) exposure to COVID-19; Z85.828 Personal history of other malignant neoplasm of skin; Z79.899 Other long term (current) drug therapy; I45.10 Unspecified right bundle-branch block
CPT/HCPCS: 36415; 71046; 80053; 81001; 83690; 83735; 84439; 84443; 84480; 84484; 85025; 85610; 85730; 87637; 93005; 96374; 99284; J2060

== ENCOUNTER 2024-02-16 12:13 | Emergency (ER) | payer OTHER, SELFPAY ==
--- NOTE | ~2024-02-16 | CT_ITS ---
EXAMINATION: CT abdomen pelvis w con DATE: 02/16/2024 14:49 INDICATION: Left lower quadrant abdominal pain. TECHNIQUE: Computed tomography (CT) of the abdomen and pelvis was performed with 100 mL Omnipaque 350 intravenous contrast. Automated exposure control and iterative reconstruction technique were employe d. The dose-length product was 181.32 mGy-cm. COMPARISON: CT abdomen and pelvis 06/20/2023 FINDINGS: The visualized portions of the lung bases demonstrate mild atelectasis. No pleural effusion . The heart size is normal. No pericardial effusion. There are bilateral breast implants. The liver, gallbladder, spleen, pancreas, and adrenal glands are normal. There are cysts in the kidneys measurin g up to 2.4 cm on the left. There are no dilated loops of bowel. The appendix is not visualized. Ther e are no pathologically enlarged lymph nodes. There is no free intraperitoneal fluid. There is severe lumbar spondylosis. IMPRESSION: 1. No etiology for the patient's symptoms. Reviewed, dictated and finalized at location A. C MINISTER
[2024-02-16 12:15] VITALS: BP 124/50; PULSE 81; RESP 18; TEMP 36.7; O2SAT 100
--- NOTE | 2024-02-16 13:34 | ED_ITS ---
HPI - Abdominal Pain General Chief Complaint: Abdominal Pain <Loren Fowler PA-C - Last Filed: 02/16/24 13:35> Stated Complaint: abd pain <Loren Fowler PA-C - Last Filed: 02/16/24 13:35> Time Seen by Provider: 02/16/24 18:00 <Loren Fowler PA-C - Last Filed: 02/16/24 13:35> Focused HPI: 60-year-old female with reported remote history of diverticulitis presents to emergency department for left lower quadrant abdominal pain. Patient was evaluated at a local urgent care with into the ED for further evaluation. States pain developed in her left lower 2 weeks ago but has progressively worsened. She denies diarrhea, hematochezia melena, nausea, vomiting, fever, dysuria or hematuria. GENERAL: Well-appearing, well-nourished, and in no acute distress. HEAD: Normocephalic, atraumatic. CHEST: Clear to auscultation. ?No respiratory distress. ABD: Minimal tenderness left lower quadrant. No rebound, guarding rigidity no CVA tenderness. HEART: Regular rate and rhythm.? NEURO: ?Alert and oriented x3. Patient screened in triage and initial orders placed.? ?Additional care and disposition to be based upon?diagnostic testing and treatment. <Loren Fowler PA-C - Last Filed: 02/16/24 13:35> History of Present Illness HPI narrative: Concur with the above with the following additions/corrections: Patient presents with left lower quadrant abdominal pain as well as associated low back pain and pain in her left anterior thigh. She has history of both diverticulitis and diverticulosis with 1 prior flare of diverticulitis. She had a colonoscopy in July. She describes the pain as a burning sensation. She has been using ibuprofen for this. She denies any dysuria, hematuria, urgency or frequency. She had 3 bowel movements this morning but states they were normal and denies any diarrhea, constipation, or bloody stools. She has had a decreased appetite. Her symptoms have been going on for 1-2 weeks. No nausea, or vomiting. She does smoke and exercises regularly. No history of pancreatitis. Drinks a problem accidentally 3 times per week although none re cently. Still has her gallbladder. Had previously been told her triglycerides were high 2 years ago but then they normalized after making dietary and lifestyle changes. No Fevers or chills. When asked about epigastric pain she states perhaps she has some slightly although not particularly and she notes that her back pain that she is experiencing is low rather than epigastric and radiating into mid back. <Samia Whitten MD - Last Filed: 02/17/24 08:49> Related Data Allergies/Adverse Reactions: Allergies Allergy/AdvReac Type Severity Reaction Status Date / Time erythromycin base Allergy Nausea Verified 12/16/23 13:09 <RHYS Thayer Last Filed: 02/16/24 13:35> PMFSH Past Medical History Medical History: Medical History Diverticulitis Diverticulosis Neoplasm of uncertain behavior of skin Skin cancer <Loren Fowler PA-C - Last Filed: 02/16/24 13:35> Surgical History Surgical History: Surgical History History of conization of cervix 3. Hx of colonoscopy 7.17.20 polyps/diverticulosis; 07/05/23 <Loren Fowler PA-C - Last Filed: 02/16/24 13:35> Family History Family History: Family History Father Hypertension Heart problem Cerebrovascular accident Mother Heart problem Grandparent Lung cancer Other Family history non-contributory <Loren Fowler PA-C - Last Filed: 02/16/24 13:35> Social History Social History: Social History Social History: Exercises regularly Smoking status: Never smoker Alcohol intake: current Drinks per week: 3 Substance use: never Living arrangements: with family Occupation/Education: retired Gender identity (if verbalized by the patient): Female <RHYS Thayer Last Filed: 02/16/24 13:35> Exam Narrative: GENERAL: Well-appearing, well-nourished, and in no acute distress. HEAD: Normocephalic, atraumatic. EYES: Non injected, non icteric ENT: Nares clear, no rhinorrhea or epistaxis. NECK: Supple. CHEST: Speaking in full sentences. No respiratory distress. HEART: Regular rate and rhythm. . ABDOMEN: Soft, nondistended. No tenderness to palpation throughout the abdomen x4 quadrants , particularly none frankly appreciable in the left lower quadrant or at the epigastrium. No suprapubic tenderness to palpation. No rigidity or guarding. Not peritoneal. : No CVA tenderness bilaterally EXTREMITIES: Normal range of motion. No lower extremity edema. SKIN: Warm, dry, no rash. NEURO: No focal deficits. Alert and oriented x3. PSYCH: Normal mood and affect. <Samia Whitten MD - Last Filed: 02/17/24 08:49> Course Vital Signs Vital signs: Vital Signs Temperature 98.0 F 02/16/24 12:15 Pulse Rate 81 02/16/24 12:15 Respiratory Rate 18 02/16/24 12:15 Blood Pressure 124/50 L 02/16/24 12:15 Pulse Oximetry 100 02/16/24 12:15 Oxygen Delivery Room Air 02/16/24 12:15 Temperature 98.1 F 02/16/24 18:57 Pulse Rate 69 02/16/24 18:57 Respiratory Rate 17 02/16/24 18:57 Blood Pressure 142/78 H 02/16/24 18:57 Pulse Oximetry 99 02/16/24 18:57 Oxygen Delivery Room Air 02/16/24 12:15 <Loren Fowler PA-C - Last Filed: 02/16/24 13:35> Vital Signs Temperature 98.0 F 02/16/24 12:15 Pulse Rate 81 02/16/24 12:15 Respiratory Rate 18 02/16/24 12:15 Blood Pressure 124/50 L 02/16/24 12:15 Pulse Oximetry 100 02/16/24 12:15 Oxygen Delivery Room Air 02/16/24 12:15 Temperature 98.1 F 02/16/24 18:57 Pulse Rate 69 02/16/24 18:57 Respiratory Rate 17 02/16/24 18:57 Blood Pressure 142/78 H 02/16/24 18:57 Pulse Oximetry 99 02/16/24 18:57 Oxygen Delivery Room Air 02/16/24 12:15 <Samia Whitten MD - Last Filed: 02/17/24 08:49> MDM - Abdominal Pain MDM Narrative Medical decision making narrative: Patient presents with left lower quadrant abdominal pain. History of diverticulitis and diverticulosis but no nausea, vomiting, diarrhea, constipation, fevers or chills. Also some associated low back pain and anterior thigh pain. No urinary symptoms. In the emergency department she is afebrile with acceptable vital signs, a mildly low diastolic blood pressure. Patient's workup is essentially unremarkable. Her lipase is greater than 3 times the upper limit of normal however even within explicitly asked she states that she is not having much pain there and her back pain is not mid back and radiating from her epigastrium but is rather low. In the absence of CT findings of pancreatitis and symptoms, her elevated lipase does not otherwise seem consistent with a diagnosis of pancreatitis. No explanation for findings on CT in her left lower quadrant. Her urinalysis is unremarkable. She did ask about the finding of the cyst on her kidney that she was able to see by accessing her results on the patient portal. In sum, This patient presents with abdominal pain or unclear etiology. A CT scan was performed to evaluate for potential causes of the abdominal pain, however, neither the clinical exam nor the CT has identified an emergent etiology for the abdominal pain. Specifically, given the benign exam, the laboratory studies, and unremarkable CT, I have a very low suspicion for appendicitis, ischemic bowel, bowel perforation, or any other life threatening disease. I have discussed with the patient the level of uncertainty with undifferentiated abdominal pain and clearly explained the need to follow-up as noted on the discharge instructions, or return to the Emergency Department immediately if the pain worsens, develops fever, persistent and uncontrolled vomiting, or for any new symptoms or concerns. Patient discharged in stable condition. <Samia Whitten MD - Last Filed: 02/17/24 08:49> Differential Diagnosis Differential diagnosis: Likely abdominal pain, calculus of kidney, constipation, diverticulitis, pancreatitis and other (Urinary tract infection, pyelonephritis) <Samia Whitten MD - Last Filed: 02/17/24 08:49> Lab Data Attestation: I reviewed the patient's lab results. <Samia Whitten MD - Last Filed: 02/17/24 08:49> Result diagrams: 02/16/24 14:17 02/16/24 14:17 <Loren Fowler PA-C - Last Filed: 02/16/24 13:35> Labs: Lab Results 02/16/24 02/16/24 Range/Units 14:17 18:08 WBC 5.9 (4.5-10.0) K/mm3 RBC 4.38 (4.2-5.4) M/mm3 Hgb 13.7 (12.0-15.0) g/dL Hct 41.9 (37.0-47.0) % MCV 95.7 (80-100) fl MCH 31.3 (26-34) pg MCHC 32.7 (32-36) g/dl RDW 12.8 (11.5-14.5) % Plt Count 285 (150-375) k/mm3 MPV 10.3 (7.4-10.4) fl Immature Gran % (Auto) 0.0 (0-0.5) % Neut % (Auto) 67.9 (45.5-73.1) % Lymph % (Auto) 24.3 (18.3-44.2) % [place] % (Auto) 5.6 (2.6-8.5) % Eos % (Auto) 1.7 (0-4.4) % Baso % (Auto) 0.5 (0.2-1.2) % Lymph # (Auto) 1.43 (0.9-3.2) K/mm3 [place] # (Auto) 0.3 (0.1-0.6) K/mm3 Eos # (Auto) 0.1 (0-0.3) K/mm3 Baso # (Auto) 0.0 (0.0-0.1) K/mm3 Abs Immat Gran (auto) 0.00 (0.00-0.031) K/mm3 Absolute Neuts (auto) 4.0 (1.3-6.7) K/mm3 Absolute Nucleated RBC 0.000 (0.0-0.012) K/mm3 Nucleated RBC % 0.0 (0.0-0.2) % Sodium 142 (137-145) mmol/L Potassium 3.8 (3.4-5.0) mmol/L Chloride 103 (98-107) mmol/L Carbon Dioxide 29 (22-30) mmol/L Anion Gap 10 (4-12) mmol/L BUN 17 (7-17) mg/dL Creatinine 0.70 (0.7-1.0) mg/dL Estim Creat Clear Calc 52 ml/min Estimated GFR > 60 (59 - ) Glucose 95 (65-110) mg/dL Calcium 10.1 (8.4-10.2) mg/dL Total Bilirubin 0.4 (0.2-1.3) mg/dL AST 28 (14-36) U/L ALT 23 (6-35) U/L Alkaline Phosphatase 54 (38-126) U/L Total Protein 8.0 (6.3-8.2) g/dL Albumin 4.9 (3.5-5.1) g/dL Lipase 1047 H (23-300) U/L Urine Color Yellow (Yellow) Urine Appearance Clear (Clear) Urine pH 7.5 (5.0-9.0) Ur Specific [place] > 1.045 H (1.001-1.035) Urine Protein Negative (Negative) mg/dL Urine Glucose (UA) Negative (Negative) mg/dL Urine Ketones Trace H (Negative) mg/dL Ur Blood (Man) Negative (Negative) Urine Nitrate Negative (Negative) Urine Bilirubin Negative (Negative) Urine Urobilinogen 0.2 (<2.0) mg/dL Leukocyte Esterase Rfl Negative (Negative) KAMLA/UL <Loren Fowler PA-C - Last Filed: 02/16/24 13:35> Lab Results 02/16/24 02/16/24 Range/Units 14:17 18:08 WBC 5.9 (4.5-10.0) K/mm3 RBC 4.38 (4.2-5.4) M/mm3 Hgb 13.7 (12.0-15.0) g/dL Hct 41.9 (37.0-47.0) % MCV 95.7 (80-100) fl MCH 31.3 (26-34) pg MCHC 32.7 (32-36) g/dl RDW 12.8 (11.5-14.5) % Plt Count 285 (150-375) k/mm3 MPV 10.3 (7.4-10.4) fl Immature Gran % (Auto) 0.0 (0-0.5) % Neut % (Auto) 67.9 (45.5-73.1) % Lymph % (Auto) 24.3 (18.3-44.2) % [place] % (Auto) 5.6 (2.6-8.5) % Eos % (Auto) 1.7 (0-4.4) % Baso % (Auto) 0.5 (0.2-1.2) % Lymph # (Auto) 1.43 (0.9-3.2) K/mm3 [place] # (Auto) 0.3 (0.1-0.6) K/mm3 Eos # (Auto) 0.1 (0-0.3) K/mm3 Baso # (Auto) 0.0 (0.0-0.1) K/mm3 Abs Immat Gran (auto) 0.00 (0.00-0.031) K/mm3 Absolute Neuts (auto) 4.0 (1.3-6.7) K/mm3 Absolute Nucleated RBC 0.000 (0.0-0.012) K/mm3 Nucleated RBC % 0.0 (0.0-0.2) % Sodium 142 (137-145) mmol/L Potassium 3.8 (3.4-5.0) mmol/L Chloride 103 (98-107) mmol/L Carbon Dioxide 29 (22-30) mmol/L Anion Gap 10 (4-12) mmol/L BUN 17 (7-17) mg/dL Creatinine 0.70 (0.7-1.0) mg/dL Estim Creat Clear Calc 52 ml/min Estimated GFR > 60 (59 - ) Glucose 95 (65-110) mg/dL Calcium 10.1 (8.4-10.2) mg/dL Total Bilirubin 0.4 (0.2-1.3) mg/dL AST 28 (14-36) U/L ALT 23 (6-35) U/L Alkaline Phosphatase 54 (38-126) U/L Total Protein 8.0 (6.3-8.2) g/dL Albumin 4.9 (3.5-5.1) g/dL Lipase 1047 H (23-300) U/L Urine Color Yellow (Yellow) Urine Appearance Clear (Clear) Urine pH 7.5 (5.0-9.0) Ur Specific [place] > 1.045 H (1.001-1.035) Urine Protein Negative (Negative) mg/dL Urine Glucose (UA) Negative (Negative) mg/dL Urine Ketones Trace H (Negative) mg/dL Ur Blood (Man) Negative (Negative) Urine Nitrate Negative (Negative) Urine Bilirubin Negative (Negative) Urine Urobilinogen 0.2 (<2.0) mg/dL Leukocyte Esterase Rfl Negative (Negative) KAMLA/UL <Samia Whitten MD - Last Filed: 02/17/24 08:49> Imaging Data Radiologist's impression: ITS Impressions Abdomen/Pelvis CT 02/16/24 15:07 IMPRESSION: 1. No etiology for the patient's symptoms. <Loren Fowler PA-C - Last Filed: 02/16/24 13:35> ITS Impressions Abdomen/Pelvis CT 02/16/24 15:07 IMPRESSION: 1. No etiology for the patient's symptoms. <Samia Whitten MD - Last Filed: 02/17/24 08:49> Discharge Plan Discharge Clinical Impression: Abdominal pain, LLQ, Kidney cysts, Elevated lipase <Loren Fowler PA-C - Last Filed: 02/16/24 13:35> Patient Disposition: Home, Self-Care <Loren Fowler PA-C - Last Filed: 02/16/24 13:35> Condition: Stable <Loren Fowler PA-C - Last Filed: 02/16/24 13:35> Instructions: Antibiotic Form, Abdominal Pain (ED), Kidney Cyst (ED) <Loren Fowler PA-C - Last Filed: 02/16/24 13:35> Additional Instructions: As we discussed, your CT scan did not identify the cause of your symptoms. Your urine was not concerning for urinary tract infection. Although your lipase was elevated, your symptoms and CT scan do not support a diagnosis of pancreatitis. You did have notation of cyst on your kidney however this is typically a benign finding that does not need followed up on unless it meets certain criteria. I have a very low suspicion for appendicitis, ischemic bowel, bowel perforation, diverticulitis (including w/ complications such as abscess or fistula) or any other life threatening disease. There is a level of uncertainty with undifferentiated abdominal pain. Follow-up with your primary care physician. Return to the Emergency Department immediately if the pain worsens, develops fever, persistent and uncontrolled vomiting, or for any new symptoms or concerns. Acetaminophen/Tylenol (maximum 4000 mg per day) is safe to take with NSAIDs (ibuprofen/Motrin) for pain relief. You can also trial Bentyl to see if that helps with cramping sensation. <Loren Fowler PA-C - Last Filed: 02/16/24 13:35> Prescriptions: New acetaminophen 500 mg capsule 1,000 mg PO Q6H PRN (Reason: pain) Qty: 20 0RF ibuprofen 600 mg tablet 600 mg PO TID PRN (Reason: pain) Qty: 20 0RF dicyclomine 10 mg capsule 10 mg PO BID PRN (Reason: abdominal pain) Qty: 10 0RF No Action clonazepam 0.5 mg tablet,disintegrating 0.5 mg PO BID PRN (Reason: Panic attack) Qty: 14 0RF acetaminophen 500 mg tablet 1,000 mg PO TID PRN (Reason: soren) 7 Days Qty: 42 0RF ibuprofen 800 mg tablet 800 mg PO TID PRN (Reason: pain) 7 Days Qty: 21 0RF <Loren Fowler PA-C - Last Filed: 02/16/24 13:35> Follow-up/Referrals: Carmen,Jose Hussein MD [Primary Care Provider] - <Loren Fowler PA-C - Last Filed: 02/16/24 13:35> Stand Alone Forms: Work/School Release IP <Loren Fowler PA-C - Last Filed: 02/16/24 13:35> Time of Disposition: 18:34 <Loren Fowler PA-C - Last Filed: 02/16/24 13:35> 18:34 <Samia Whitten MD - Last Filed: 02/17/24 08:49>
[2024-02-16 14:31] LABS: Basophils Percent Auto 0.5 % (0.2-1.2); Eosinophils Absolute Auto 0.1 K/mm3 (0-0.3); Eosinophils Percent Auto 1.7 % (0-4.4); Hematocrit 41.9 % (37.0-47.0); Hemoglobin 13.7 g/dL (12.0-15.0); Lymphocytes Absolute Auto 1.43 K/mm3 (0.9-3.2); Lymphocytes Percent Auto 24.3 % (18.3-44.2); Mean Corpuscular HGB Conc 32.7 g/dl (32-36); Mean Corpuscular Hemoglobin 31.3 pg (26-34); Mean Corpuscular Volume 95.7 fl (80-100); Mean Platelet Volume 10.3 fl (7.4-10.4); Monocytes Absolute Auto 0.3 K/mm3 (0.1-0.6); Monocytes Percent Auto 5.6 % (2.6-8.5); Neutrophils Percent Auto 67.9 % (45.5-73.1); Platelet Count Result 285 k/mm3 (150-375); Red Blood Count 4.38 M/mm3 (4.2-5.4); Red Cell Distribution Width 12.8 % (11.5-14.5); White Blood Count 5.9 K/mm3 (4.5-10.0)
[2024-02-16 14:41] LABS: Alanine Aminotransferase 23 U/L (6-35); Albumin Level 4.9 g/dL (3.5-5.1); Alkaline Phosphatase 54 U/L (38-126); Anion Gap 10 mmol/L (4-12); Aspartate Amino Transferase 28 U/L (14-36); Bilirubin,Total 0.4 mg/dL (0.2-1.3); Blood Urea Nitrogen 17 mg/dL (7-17); Calcium 10.1 mg/dL (8.4-10.2); Carbon Dioxide 29 mmol/L (22-30); Chloride 103 mmol/L (98-107); Estimated CRCL calculation 52 ml/min; Estimated Glomerular Filt Rate > 60; Glucose 95 mg/dL (65-110); Lipase 1047 U/L (23-300); Potassium 3.8 mmol/L (3.4-5.0); Sodium 142 mmol/L (137-145)
[2024-02-16 14:42] VITALS: BP 114/53; PULSE 69; RESP 17; O2SAT 100
[2024-02-16 17:19] VITALS: BP 129/61; PULSE 87; RESP 16; TEMP 36.9; O2SAT 100
[2024-02-16 18:14] LABS: Add Urine Microscopic? NO; Appearance Urine Clear (Clear); Bilirubin Urine Negative (Negative); Blood Urine Negative (Negative); Color Urine Yellow (Yellow); Glucose Urine UA Negative (Negative); Ketones Urine Trace mg/dL (Negative); Leukocyte Esterase Ur Negative LEU/UL (Negative); Nitrate Urine Negative (Negative); Protein Urine Negative (Negative); Specific Grav Ur > 1.045 (1.001-1.035); Urobilinogen Urine 0.2 mg/dL (<2.0); pH Urine 7.5 (5.0-9.0)
[2024-02-16] MEDS: ACETAMINOPHEN 500 MG TABLET 1000 MG PO (18:45)
[2024-02-16] MEDS: DICYCLOMINE HCL 10 MG CAPSULE PO (18:45)
[2024-02-16 18:57] VITALS: BP 142/78; PULSE 69; RESP 17; TEMP 36.7; O2SAT 99
== END 2024-02-16 18:58 | disposition home or self-care (01) ==
PROVIDERS: Physician Assistant; Emergency Provider Student in an Organized Health Care Education/Training Program; PCP Family Medicine
DX: N28.1 Cyst of kidney, acquired (principal); R74.01 Elevation of levels of liver transaminase levels; R10.32 Left lower quadrant pain
CPT/HCPCS: 36415; 74177; 80053; 81003; 83690; 85025; 99284; A9270; Q9967

== ENCOUNTER 2024-04-25 10:49 | Outpatient (CLI) | payer OTHER, SELFPAY ==
--- NOTE | ~2024-04-25 | XR_ITS ---
Right elbow Technique: AP and lateral views were obtained. Clinical History: Pain Findings: No acute fracture or dislocation is seen. Osseous alignment is anatomic. Joint spaces are p reserved. There is no displacement of the fat pads, and soft tissues are unremarkable. Impression: Unremarkable radiographs. Reviewed, dictated and finalized at location . ER Impression: Unremarkable radiographs.
--- OUTSIDE RECORDS SUMMARY | 2024-04-26 23:31 | XMS_ITS | Referral Summary ---
Author Organization [facility] Address [address] [place] [address] Care Team Providers Care Sales Office Manager Name Role Phone Isabella Macdonald MD Primary Care Provider [phone] Source Comments [facility],non-owned Affiliates and Associated Physician Practices is amultiple site organization consisting of ambulatory clinics and hospital sitesin [place], [place], [place] and [place]. This disclosure is being madepursuant to the Care Everywhere program and may not contain all information available regarding this patient. Last updated 17.[facility] Allergies Active Allergy Reactions Criticality Noted Date Comments Erythromycin Nausea and/or Vomiting 07/04/2017 Medications * Be aware that medications may not be up to date on this document. Alwaysverify current medications with the patient. Medication Sig Dispensed Refills Start Date End Date Status OtherIndications:estr iol compound Reasons: estriol compound Active estriol 1 mg/gm compound cream Apply to affected area at bedtime Active Social History Tobacco Use Types Packs/Day Years Used Date Smoking Tobacco: Never Smokeless Tobacco: Never Sex and Gender Information Value Date Recorded Sex Assigned at Not on file Gender Identity Not on file Sexual Orientation Not on file Last Filed Vital Signs Vital Sign Reading Time Taken Comments Blood Pressure 102/60 10/31/2019 9:29 AM CDT Pulse 108 10/31/2019 9:29 AM CDT Temperature 36.7 ??C (98 ??F) 10/31/2019 9:29 AM CDT Respiratory Rate 16 10/31/2019 9:29 AM CDT Oxygen Saturation 96% 10/31/2019 9:29 AM CDT Inhaled Oxygen Concentration - - Weight 49.9 kg (110 lb) 10/31/2019 9:29 AM CDT Height 162.6 cm (5' 4 ) 10/31/2019 9:29 AM CDT Body Mass Index 18.88 10/31/2019 9:29 AM CDT Plan of Treatment Not on file Care Teams Sales Office Manager Relationship Specialty Start Date End Date Isabella Macdonald MD PCP - General Internal Medicine 07/04/17
--- OUTSIDE RECORDS SUMMARY | 2024-04-26 23:31 | XMS_ITS | Patient Health Summary ---
Author Organization [facility] Address [address] [place] [address] Care Team Providers Care Form Maker Plaster Name Role Phone Isabella Macdonald MD Primary Care Provider [phone] Note from Formerly named [facility],non-owned Affiliates and Associated Physician Practices is amultiple site organization consisting of ambulatory clinics and hospital sitesin [place], [place], [place] and [place]. This disclosure is being madepursuant to the Care Everywhere program and may not contain all information available regarding this patient. Last updated 17.[facility] Allergies * Erythromycin(Nausea and/or Vomiting) Medications * Be aware that medications may not be up to date on this document. Alwaysverify current medications with the patient. * Other Reasons: estriol compound * estriol 1 mg/gm compound cream Apply to affected area at bedtime Social History Tobacco Use Types Packs/Day Years [...] Mass Index 18.88 10/31/2019 9:29 AM CDT Procedures * CULTURE URINE(Performed 07/04/2017) Performed for Acute cystitis with hematuria * URINALYSIS AUTO - POINT OF CARE (AMB) STL(Performed 07/04/2017) Performed for Acute cystitis with hematuria Results * CULTURE URINE (07/04/2017 3:30 PM CDT) Urine Culture Routine Final report [facility] ACCOUNT BILL Result 1 [facility] ACCOUNT BILL Comment: Mixed urogenital frannie Less than 10,000 colonies/mL Urine URINE SPECIMEN OBTAINED BY CLEAN CATCH PROCEDURE / Unknown 07/04/2017 3:30 PM CDT 07/04/2017 Narrative Resulting Agency Comment [facility] [address] ??[facility] [id number] Eri Regalado APRN-BELLOWS CHARGER ASSEMBLER LAB - MICR OBIOLOGY ORDERABLES Performing Organization Address City/State/[facility] Co de Phone Number [facility] ACCOUNT BILL [address] [place] [address] * (ABNORMAL) URINALYSIS AUTO - POINT OF CARE (AMB) STL (07/04/2017 3:21 PM CDT) Clarity UA POCT clear Color UA POCT yellow Leukocyte UA 15+ Negative Nitrite UA POCT negative Negative Urobilinogen UA 0.2 0.1 - 1.0 Protein UA POCT 15+ Negative pH UA 6.0 5.0 - 8.0 pH units Blood UA 5-10 Negative Specific [place] UA POCT 1.010 1.002 - 1.030 Ketone UA negative Negative Bilirubin UA POCT negative Negative Glucose UA negative Negative Expiration Date 05/04/2018 Lot # [id number] QC Verified Yes Yes Urine URINE / Unknown 07/04/2017 3 :21 PM CDT Eri Regalado APRN-BELLOWS CHARGER ASSEMBLER LAB - POIN T OF CARE ORDERABLES Care Teams Form Maker Plaster Relationship Specialty Start Date End Date Isabella Macdonald MD PCP - General Internal Medicine 07/04/17
--- OUTSIDE RECORDS SUMMARY | 2024-04-26 23:31 | XMS_ITS | Encounter Summary ---
Author Organization [facility] Address [address] Attn: Epic Prelude ADT [place] [id number] Care Team Providers Care Gas Appliance Installer Name Role Phone Isabella Macdonald MD Primary Care Provider [phone] Encounter Details Date Type Department Care Team (Late st Contact Info) Description 09/19/2007 Outpatient Historical Isabella Macdonald MD [address] [place] [phone] Social History Tobacco Use Types Packs/Day Years Used Date Smoking Tobacco: Never Assessed Comments Unknown Sex and Gender Information Value Date Recorded Sex Assigned at Not on file Legal Sex Female 3:27 PM CDT Gender Identity Not on file Sexual Orientation Not on file documented as of this encounter Plan of Treatment Not on file documented as of this encounter Visit Diagnoses Not on filedocumented in this encounter Care Teams Gas Appliance Installer Relationship Specialty Start Date End Date Isabella Macdonald MD [address] [place] [phone] PCP - General 10/20/01 11/12/20 documented as of this encounter
--- OUTSIDE RECORDS SUMMARY | 2024-04-26 23:31 | XMS_ITS | Clinical Summary ---
Author Organization [facility] [employer] Address [address] [place] [address] Care Team Providers Care Unclaimed Property Manager Name Role Phone Isabella Macdonald MD Primary Care Provider [phone] Source Comments [facility] [employer],non-owned Affiliates and Associated Physician Practices is amultiple site organization consisting of ambulatory clinics and hospital sitesin [place], [place], [place] and [place]. This disclosure is being madepursuant to the Care Everywhere program and may not contain all information available regarding this patient. Last updated [employer] Allergies Active Allergy Reactions Criticality Noted Date Comments Erythromycin Nausea and/or Vomiting 07/04/2017 Medications * Be aware that medications may not be up to date on this document. Alwaysverify current medications with the patient. Medication Sig Dispensed Refills Start Date End Date Status OtherIndications:estr iol compound Reasons: estriol compound Active estriol 1 mg/gm compound cream Apply to affected area at bedtime Active Family History Medical History Relation Name Comments Hypertension Father COPD - Chronic Obstructive Pulmonary Disease Mother Relation Name Status Comments Father Mother Social History Tobacco Use Types Packs/Day Years [...] 10/31/2019 9:29 AM CDT Plan of Treatment Health Maintenance Due Date Last Done Comments BONE DENSITY TESTING 1955 COLOGUARD (AGES 45-75) - COL ON CA SCREENING [address] COLONOGRAPHY - COLON CA SCREENING 1955 FIT - COLON CA SCREENING 1955 FLEX SIG - COLON CA SCREENING 1955 LIPID TESTING 1955 MAMMOGRAM 1955 HEPATITIS C SCREENING 08/05/1973 DTAP/TDAP/TD VACCINES (1 - Tdap) 08/09/1974 PNEUMOCOCCAL VACCINE 50+ (1 of 1 - PCV) 08/09/2005 ZOSTER VACCINE (1 of 2) 08/09/2005 COVID-19 VACCINE ( - 2023-2 5 season) 2023 INFLUENZA VACCINE (#1) 2023 DEPRESSION SCREENING 04/04/2024 MEDICARE AWV ? CALENDAR YEAR 2024 COLONOSCOPY - COLON CA SCREENING 10/18/2029 10/19/19 20 Colorectal Cancer Screening 10/18/2029 Respiratory Syncytial Virus (RSV) Vaccine Pt: or over 60 yrs (1 - 1-dose 75+ series) 08/09/2030 HEPATITIS B VACCINE Aged Out No longe r eligible based on patient's age to complete this topic HIB VACCINE Aged Out No longer eligi ble based on patient's age to complete this topic HPV VACCINE Aged Out No longer eligi ble based on patient's age to complete this topic MENINGOCOCCAL (Group B) VACCINE Aged Out No longer eligible based on patient's age to complete this topic MENINGOCOCCAL VACCINE Aged Out No guillermina vernon eligible based on patient's age to complete this topic Care Teams Unclaimed Property Manager Relationship Specialty Start Date End Date Isabella Macdonald MD PCP - General Internal Medicine 07/04/17
--- OUTSIDE RECORDS SUMMARY | 2024-04-26 23:31 | XMS_ITS | Encounter Summary ---
Author Organization [employer] Address [address] [place] [address] Care Team Providers Care Hotel Houseman Name Role Phone Isabella Macdonald MD Primary Care Provider [phone] Encounter Details Date Type Department Care Team (Late st Contact Info) Description 09/19/2007 Outpatient Historical [facility] Internal Medicine [address] [place] [phone] Isabella Macdonald MD [address] [place] [address] Social History Tobacco Use Types Packs/Day Years [...] on filedocumented in this encounter Care Teams Hotel Houseman Relationship Specialty Start Date End Date Isabella Macdonald MD [address] [place] [phone] PCP - General 10/20/01 11/12/20 documented as of this encounter
--- OUTSIDE RECORDS SUMMARY | 2024-04-26 23:31 | XMS_ITS | Encounter Summary ---
Author Organization [facility] Address [address] Attn: Epic Prelude ADT [place] [address] Care Team Providers Care Senior Escrow Officer Name Role Phone Isabella Macdonald MD Primary Care Provider [phone] Encounter Details Date Type Department Care Team (Late st Contact Info) Description 09/19/2007 Outpatient Historical Isabella Macdonald MD [address] [place] [phone] Social History Tobacco Use Types Packs/Day Years [...] on filedocumented in this encounter Care Teams Senior Escrow Officer Relationship Specialty Start Date End Date Isabella Macdonald MD [address] [place] [phone] PCP - General 10/20/01 11/12/20 documented as of this encounter
--- OUTSIDE RECORDS SUMMARY | 2024-04-26 23:31 | XMS_ITS | Encounter Summary ---
Author Organization [employer] Address [address] [place] [address] Care Team Providers Care Chair Maker Name Role Phone Isabella Macdonald MD Primary Care Provider [phone] Encounter Details Date Type Department Care Team (Late st Contact Info) Description 08/02/2006 Orders Only [facility] Internal Medicine [address] [place] [address] Isabella Macdonald MD [facility] [address] [place] [address] Social History Tobacco Use Types Packs/Day Years Used Date Smoking Tobacco: Never Assessed Comments Unknown Sex and Gender Information Value Date Recorded Sex Assigned at Not on file Legal Sex Female 3:27 PM CDT Gender Identity Not on file Sexual Orientation Not on file documented as of this encounter Progress Notes * Isabella Macdonald MD - 08/24/2007 8:33 AM CDT BLOOD PRESSURE: 116/74 Right Arm Sitting WEIGHT: 113lbs NURSE NAME: Emma Chaudhry C ALLERGIES: Allergies are as listed. TOBACCO USE Patient does not currently use tobacco. MEDICATIONS: Medication list current. CHIEF COMPLAINT sinus infection X 2 weeks, she says she has pain in (B) of her ears and right now it feels like her head is very full, a little bit of drainage but not a lot and she remembers coughing last night but not a lot HISTORY: HISTORY OF PRESENT ILLNESS: UPPER RESPIRATORY: Onset is sudden. The upper respiratory symptoms began approximately 2 weeks ago.Symptoms include facial pain, symptoms include nasal congestion, has symptoms of earache, no symptoms of cough, no symptoms of chest congestion, no symptoms of fever, no symptoms of hoarseness, symptoms include sinus congestion, no symptoms of sore throat. The symptoms have been intermittent. Therapies tried include cold medicine. CURRENT PROBLEM LIST: 311 DEPRESSION 354.0 CARPAL TUNNEL SYNDROME 379.99 OTHER DISORDERS OF EYE 388.70 OTALGIA 461.0 ACUTE SINUSITIS 465.9 UPPER RESPIRATORY INFECTION 477.9 RHINITIS ALLERGIC UNSPECIFIED 692.0 CONTACT DERMATITIS V70.0 ROUTINE GENERAL MEDICAL EXAMINATION V72.31 ROUTINE GYNECOLOGICAL EXAMINATION CURRENT MEDICATION LIST: NASONEX NASAL SUSPENSION 50 MCG/ACT, 2 sprays each nostril q day MUCINEX D ORAL TABLET 12 HR 60-600 MG, 1-2 po qd prn CURRENT ALLERGY LIST: ERYTHROMYCIN DERIVATIVES PHYSICAL EXAMINATION: CONSTITUTIONAL: GENERAL APPEARANCE: Healthy appearing patient in no distress. EYES: CONJUNCTIVAE/LIDS: Conjunctivae and lids appear normal. EARS, NOSE, MOUTH AND THROAT: EARS: Tympanic membranes shiny without retraction. Canals unremarkable. Hearing grossly normal. NOSE (AND SINUS): TURBINATES INFLAMED BILATERALLY, TURBINATES RED BILATERALLY. ORAL: Inspection of gums, lips, palate, and teeth normal. No scars, lesions, or masses. Oral mucosaunremarkable with non-inflamed posterior pharynx. NECK/THYROID: Trachea midline. No thyroid enlargement, tenderness, or mass. No supraclavicular or cervical adenopathy. RESPIRATORY: Clear to auscultation and percussion. Normal respiratory effort. CARDIOVASCULAR: CARDIAC: Regular rhythm. No murmurs, rubs, or gallops. LYMPHATICS: No lymphadenopathy in the neck, no supraclavicular lymphadenopathy noted. MUSCULOSKELETAL EXAM: GAIT/STATION: Normal gait. PSYCHIATRIC: Judgment appropriate. Oriented. Normal memory. Mood and affect appropriate. ASSESSMENT/PLAN: 461.0-ACUTE SINUSITIS MEDICATIONS: SEPTRA DS ORAL TABLET 800-160 MG, 1 Two Times A Day, 14 Dispensed, status: NEW PRESCRIPTION, 08/02/2006. DIFLUCAN ORAL TABLET 150 MG, 1 Every Day, 1 Dispensed, 1 Fills, status: NEW PRESCRIPTION, 08/02/2006. ENTEX PSE ORAL CAPSULE 12 HR 120-400 MG, 1 Two Times A Day, 14 Dispensed, status: NEW PRESCRIPTION,08/02/2006. 477.9-RHINITIS ALLERGIC UNSPECIFIED MEDICATIONS: NASONEX NASAL SUSPENSION 50 MCG/ACT, 2 sprays each nostril q day, 3 Dispensed, 3 Fills, status: CONTINUED, 08/02/2006. HIGINIO ORAL TABLET 180 MG, 1 Every Day, 90 Dispensed, 3 Fills, status: NEW PRESCRIPTION, 08/02/2006. RETURN VISIT : Instructed to call if not improving. Electronically Signed by: Isabella Macdonald MD on Wednesday, August 02, 2006 documented in this encounter Plan of Treatment Not on file documented as of this encounter Visit Diagnoses Not on filedocumented in this encounter Care Teams Chair Maker Relationship Specialty Start Date End Date Isabella Macdonald MD [address] [place] [address] PCP - General 10/20/01 11/12/20 documented as of this encounter
--- OUTSIDE RECORDS SUMMARY | 2024-04-26 23:31 | XMS_ITS | Encounter Summary ---
Author Organization [employer] Address [address] [place] [address] Care Team Providers Care Can Dragger Name Role Phone Isabella Macdonald MD Primary Care Provider [phone] Encounter Details Date Type Department Care Team (Late st Contact Info) Description 05/19/2006 Outpatient Historical [facility] Internal Medicine [address] [place] [address] Isabella Macdonald MD [address] [place] [phone] Social History Tobacco Use Types Packs/Day Years Used Date Smoking Tobacco: Never Assessed Comments Unknown Sex and Gender Information Value Date Recorded Sex Assigned at Not on file Legal Sex Female 3:27 PM CDT Gender Identity Not on file Sexual Orientation Not on file documented as of this encounter Last Filed Vital Signs Vital Sign Reading Time Taken Comments Blood Pressure 110/76 05/19/2006 11:30 AM SIGNAL WORKER HELPER Pulse - - Temperature - - Respiratory Rate - - Oxygen Saturation - - Inhaled Oxygen Concentration - - Weight 51.3 kg (113 lb) 05/19/2006 11:30 AM SIGNAL WORKER HELPER Height - - Body Mass Index - - documented in this encounter Plan of Treatment Not on file documented as of this encounter Visit Diagnoses Not on filedocumented in this encounter Care Teams Can Dragger Relationship Specialty Start Date End Date Isabella Macdonald MD [address] [place] [phone] PCP - General 10/20/01 11/12/20 documented as of this encounter
--- OUTSIDE RECORDS SUMMARY | 2024-04-26 23:31 | XMS_ITS | Encounter Summary ---
Author Organization [employer] Address [address] [place] [address] Care Team Providers Care Precision Honer Name Role Phone Isabella Macdonald MD Primary Care Provider [phone] Encounter Details Date Type Department Care Team (Late st Contact Info) Description 12/20/2006 Outpatient Historical [facility] Internal Medicine [address] [place] [address] Isabella Macdonald MD [address] [place] [phone] Social History Tobacco Use Types Packs/Day Years Used Date Smoking Tobacco: Never Assessed Comments Unknown Sex and Gender Information Value Date Recorded Sex Assigned at Not on file Legal Sex Female 3:27 PM CDT Gender Identity Not on file Sexual Orientation Not on file documented as of this encounter Last Filed Vital Signs Vital Sign Reading Time Taken Comments Blood Pressure 110/74 12/20/2006 11:15 AM CDT Pulse - - Temperature - - Respiratory Rate - - Oxygen Saturation - - Inhaled Oxygen Concentration - - Weight 46.3 kg (102 lb) 12/20/2006 11:15 AM CDT Height - - Body Mass Index - - documented in this encounter Plan of Treatment Not on file documented as of this encounter Visit Diagnoses Not on filedocumented in this encounter Care Teams Precision Honer Relationship Specialty Start Date End Date Isabella Macdonald MD [address] [place] [phone] PCP - General 10/20/01 11/12/20 documented as of this encounter
--- OUTSIDE RECORDS SUMMARY | 2024-04-26 23:31 | XMS_ITS | Encounter Summary ---
Author Organization [employer] Address [address] [place] [address] Care Team Providers Care Commonwealth Attorney Name Role Phone Isabella Macdonald MD Primary Care Provider [phone] Encounter Details Date Type Department Care Team (Late st Contact Info) Description 09/19/2007 Orders Only [facility] Internal Medicine [address] [place] [address] Isabella Macdonald MD [address] [place] [phone] Social History Tobacco Use Types Packs/Day Years [...] on filedocumented in this encounter Care Teams Commonwealth Attorney Relationship Specialty Start Date End Date Isabella Macdonald MD [address] [place] [phone] PCP - General 10/20/01 11/12/20 documented as of this encounter
--- OUTSIDE RECORDS SUMMARY | 2024-04-26 23:31 | XMS_ITS | Encounter Summary ---
Author Organization [employer] Address [address] [place] [address] Care Team Providers Care Steel Loader Name Role Phone Isabella Macdonald MD Primary Care Provider [phone] Encounter Details Date Type Department Care Team (Late st Contact Info) Description 07/25/[address] [facility] Internal Medicine [address] [place] [address] Isabella Macdonald MD [facility] [address] [place] [address] Social History Tobacco Use Types Packs/Day Years Used Date Smoking Tobacco: Never Assessed Comments Unknown Sex and Gender Information Value Date Recorded Sex Assigned at Not on file Legal Sex Female 3:27 PM CDT Gender Identity Not on file Sexual Orientation Not on file documented as of this encounter Progress Notes * Isabella Macdonald MD - 09/08/2007 11:24 AM CDT TIME:09:41 am PATIENT`S HOME PHONE: PATIENT`S WORK PHONE: PATIENT`S INSURANCE: [facility] WHO TOOK THE CALL: Tamia Rutledge L GENERAL INFORMATION PATIENT STATUS: Established Patient. LAST VISIT: 12/20/06 WHO CALLED: Patient called. CURRENT ALLERGY LIST: ERYTHROMYCIN DERIVATIVES PHARMACY NUMBER: SECTION 1: Pt states that she has a yeast infection from taking an antibiotic- She states that she has a lot of itching and burning, but no discharge x 2 days. Pt would like us to call out a script for Diflucan and is asking for an additional refill, because she states that it usually takes 2 of them to get rid of the sx's. DOCTOR`S RESPONSE: ernie 07/25/07 at 10:35 am MEDICATIONS: Call in to Pharmacy DIFLUCAN ORAL TABLET 150 MG, 1 Every Day, 1 Dispensed, 3 Fills, status: CONTINUED, 07/25/2007. FINAL ACTION: [email or web address] 07/25/07 at 10:49 am Spoke with patient 07/25/07 at 10:49 am. Called pharmacy at 07/25/07 at 10:49 am. LM on pharmacy voice mail./wlf Electronically Signed by: Tamia Rutledge on Wednesday, July 25, 2007 documented in this encounter Plan of Treatment Not on file documented as of this encounter Visit Diagnoses Not on filedocumented in this encounter Care Teams Steel Loader Relationship Specialty Start Date End Date Isabella Macdonald MD [address] [place] [phone] PCP - General 10/20/01 11/12/20 documented as of this encounter
--- OUTSIDE RECORDS SUMMARY | 2024-04-26 23:31 | XMS_ITS | Encounter Summary ---
Author Organization [employer] Address [address] [place] [address] Care Team Providers Care Banquet Set Up Person Name Role Phone Isabella Macdonald MD Primary Care Provider [phone] Encounter Details Date Type Department Care Team (Latest Contact Info) Description 09/13/2007 Outpatient Historical [facility] Internal Medicine [address] [place] [address] Isabella Macdonald MD [address] [place] [phone] Special Screening for Other Specified Conditions Social History Tobacco Use Types Packs/Day Years Used Date Smoking Tobacco: Never Assessed Comments Unknown Sex and Gender Information Value Date Recorded Sex Assigned at Not on file Legal Sex Female 3:27 PM CDT Gender Identity Not on file Sexual Orientation Not on file documented as of this encounter Plan of Treatment Not on file documented as of this encounter Procedures Procedure Name Priority Date/Time Associated Diagnosis Comments CBC WITH DIFFERENTIAL Routine 09/13/2007 10:01 AM CDT VITAMIN D 25 HYDROXY Routine 09/13/2007 10:01 AM CDT TSH Routine 09/13/2007 10:01 AM CDT LIPID PANEL Routine 09/13/2007 10:01 AM CDT COMPREHENSIVE METABOLIC PANEL Routine 09/13/2007 10:01 AM CDT documented in this encounter Results * COMPREHENSIVE METABOLIC PANEL (09/13/2007 10:01 AM CDT) POTASSIUM 4.1 3.5 - 4.9 mmol/L [facility] TOTAL PROTEIN 7.3 6.3 - 8.6 g/dL [facility] GLUCOSE 94 65 - 99 mg/dL [facility] AST 26 12 - 32 U/L [facility] BUN 10 6 - 20 mg/dL [facility] CALCIUM 9.1 8.4 - 10.2 mg/dL [facility] ALBUMIN 4.7 3.4 - 4.8 g/dL [facility] CHLORIDE 103 96 - 108 mmol/L [facility] CREATININE 0.75 0.51 - 0.95 mg/dL [facility] ALT 25 0 - 31 U/L [facility] SODIUM 140 135 - 145 mmol/L [facility] ALKALINE PHOSPHATASE 57 35 - 104 U/L [facility] CO2 29 22 - 30 mmol/L [facility] BILIRUBIN TOTAL 0.3 0.2 - 1.0 mg/dL [facility] GFR, >60 >=60 mL/min/1.7 sq meter [facility] GFR >60 >=60 mL/min/1.7 sq meter [facility] Comment: Modification of Diet in Renal Disease (MDRD) study formula. Estimated GFR rate interpretative information for both Americans and non- Americans is available on the [facility] Intranet at: [email or web address] Select: Lab Policies and Procedures Select: Reference Ranges - GFR Blood specimen (specimen) 09/13/2007 10:01 AM CDT 09/13/2007 3:35 PM CDT Isabella Macdonald MD CHEMISTRY ORDERABLES Edited Performing Organization Address City/[facility]/ZIP Co de Phone Number [facility] CLIA# [id number] [address] [place] [address] * TSH (09/13/2007 10:01 AM CDT) TSH 1.43 0.27 - 4.20 uU/mL [facility] Blood specimen (specimen) 09/13/2007 10:01 AM CDT 09/13/2007 3:35 PM CDT Isabella Macdonald MD CHEMISTRY ORDERABLES Final R esult Performing Organization Address [facility] Co de Phone Number [facility] CLIA# [id number] [address] [place] [address] * (ABNORMAL) LIPID PANEL (09/13/2007 10:01 AM CDT) HDL 88(H) 40 - 59 mg/dL [facility] CHOLESTEROL 198 100 - 199 mg/dL [facility] CHOL/HDL RATIO 2.3 2.0 - 5.0 [facility] TRIGLYCERIDE 98 10 - 149 mg/dL [facility] LDL CALCULATED 90 <=99 mg/dL [facility] LIPID PANEL COMMENT See Below [facility] Comment: The adult ATP and pediatric NCEP classifications for lipids are available on the [facility] Intranet at: [email or web address] Select: Lab Policies and Procedures,Current Select: Lipid Panel Interpretation Blood specimen (specimen) 09/13/2007 10:01 AM CDT 09/13/2007 3:35 PM CDT Isabella Macdonald MD CHEMISTRY ORDERABLES Edited Performing Organization Address [facility]/ZIP Co de Phone Number [facility] CLIA# [id number] [address] [place] [address] * VITAMIN D 25 HYDROXY (09/13/2007 10:01 AM CDT) VITAMIN D, 25 OH, D2 <4 ng/mL [facility] Comment: 25-OHD3 indicates both endogenous production and supplementation. 25-OHD2 is an indicator of exogenous sources such as diet or supplementation. Therapy is based on measurement of Total 25-OHD, with levels <20 ng/mL indicative of Vitamin D deficiency while levels between 20 ng/mL and 30 ng/mL suggest insufficiency. Optimal levels are >30 ng/mL. ? Lab test performed by: [employer] [facility] [address] [place] [address] CORINNE VINSON MD VITAMIN D, 25 OH, TOTAL 40 20 - 100 ng/mL [facility] VITAMIN D, 25 OH, D3 40 ng/mL [facility] Blood specimen (specimen) 09/13/2007 10:01 AM CDT 09/13/2007 3:35 PM CDT Isabella Macdonald MD CHEMISTRY ORDERABLES Final R esult Performing Organization Address City/[facility]/ZIP Co de Phone Number [facility] CLIA# [id number] [address] [place] [address] * (ABNORMAL) CBC WITH DIFFERENTIAL (09/13/2007 10:01 AM CDT) HEMOGLOBIN 14.4 11.8 - 14.8 g/dL [facility] RDW 13.5 11.5 - 14.5 % [facility] WBC 3.9(L) 4.0 - 9.8 K/uL [facility] MCH 30.4 27.2 - 32.6 pg [facility] MPV 11.1 9.3 - 12.4 fL [facility] HEMATOCRIT 44.4(H) 35.5 - 44.0 % [facility] RDW-STDEV 46.5 37.1 - 48.7 fL [facility] RBC 4.73 3.90 - 4.90 M/uL [facility] MCHC 32.4 31.5 - 35.5 % [facility] MCV 93.9 82.0 - 99.0 fL [facility] PLATELETS 303 140 - 350 K/uL [facility] EOSINOPHILS 2 0 - 7 % [facility] EOSINOPHIL ABSOLUTE 0.07 0.00 - 0.70 K/uL [facility] LYMPHOCYTES 36 16 - 45 % [facility] LYMPHOCYTE ABSOLUTE 1.38 0.70 - 4.50 K/uL [facility] BASOPHILS 1 0 - 2 % [facility] BASOPHILS ABSOLUTE 0.03 0.00 - 0.20 K/uL [facility] MONOCYTES 11 3 - 13 % [facility] MONOCYTE ABSOLUTE 0.44 0.10 - 1.30 K/uL [facility] NEUTROPHILS 50 45 - 70 % [facility] NEUTROPHIL ABSOLUTE 1.93 1.90 - 7.00 K/uL [facility] Blood specimen (specimen) 09/13/2007 10:01 AM CDT 09/13/2007 3:35 PM CDT Isabella Macdonald MD HEMATOLOGY ORDERABLES Edited INTERFACE SYSTEM Refer to clinic/hospital department [facility] CLIA# [id number] [address] [place] [address] documented in this encounter Visit Diagnoses Diagnosis Special screening for other specified conditions(V82.89) Special screening for other specified conditions documented in this encounter Care Teams Banquet Set Up Person Relationship Specialty Start Date End Date Isabella Macdonald MD [address] [place] [phone] PCP - General 10/20/01 11/12/20 documented as of this encounter
--- OUTSIDE RECORDS SUMMARY | 2024-04-26 23:31 | XMS_ITS | Encounter Summary ---
Author Organization [employer] Address [address] [place] [address] Care Team Providers Care Order Picker Name Role Phone Isabella Macdonald MD Primary Care Provider [phone] Encounter Details Date Type Department Care Team (Late st Contact Info) Description 10/14/2006 Outpatient Historical [facility] Internal Medicine [address] [place] [address] Leobardo Perry MD [address] [facility] [address] [place] [address] Social History Tobacco Use Types Packs/Day Years Used Date Smoking Tobacco: Never Assessed Comments Unknown Sex and Gender Information Value Date Recorded Sex Assigned at Not on file Legal Sex Female 3:27 PM CDT Gender Identity Not on file Sexual Orientation Not on file documented as of this encounter Last Filed Vital Signs Vital Sign Reading Time Taken Comments Blood Pressure 120/70 10/14/2006 11:45 AM CDT Pulse 65 10/14/2006 11:45 AM CDT Temperature 36.7 ??C (98.1 ??F) 10/14/2006 11:45 AM C DT Respiratory Rate - - Oxygen Saturation - - Inhaled Oxygen Concentration - - Weight 49 kg (108 lb) 10/14/2006 11:45 AM CDT Height - - Body Mass Index - - documented in this encounter Plan of Treatment Not on file documented as of this encounter Visit Diagnoses Not on filedocumented in this encounter Care Teams Order Picker Relationship Specialty Start Date End Date Isabella Macdonald MD [address] [place] [phone] PCP - General 10/20/01 11/12/20 documented as of this encounter
--- OUTSIDE RECORDS SUMMARY | 2024-04-26 23:31 | XMS_ITS | Encounter Summary ---
Author Organization [facility] Address 5 [facility] Attn: Epic Prelude ADT [place] [address] Care Team Providers Care Demolition Specialist Name Role Phone Isabella Macdonald MD Primary Care Provider [phone] Encounter Details Date Type Department Care Team (Late st Contact Info) Description 09/19/2007 Outpatient Historical Isabella Macdonald MD [address] [place] [phone] Social History Tobacco Use Types Packs/Day Years [...] on filedocumented in this encounter Care Teams Demolition Specialist Relationship Specialty Start Date End Date Isabella Macdonald MD [address] [place] [phone] PCP - General 10/20/01 11/12/20 documented as of this encounter
--- OUTSIDE RECORDS SUMMARY | 2024-04-26 23:31 | XMS_ITS | Encounter Summary ---
Author Organization [employer] Address [address] [place] [address] Care Team Providers Care Tie Sawyer Name Role Phone Isabella Macdonald MD Primary Care Provider [phone] Encounter Details Date Type Department Care Team (Late st Contact Info) Description 10/14/2006 Orders Only [facility] Internal Medicine [address] [place] [address] Leobardo Perry MD [address] [facility] [address] [place] [phone] Social History Tobacco Use Types Packs/Day Years Used Date Smoking Tobacco: Never Assessed Comments Unknown Sex and Gender Information Value Date Recorded Sex Assigned at Not on file Legal Sex Female 3:27 PM CDT Gender Identity Not on file Sexual Orientation Not on file documented as of this encounter Progress Notes * Leobardo Perry MD - 08/23/2007 10:16 AM CDT WEIGHT: 108lbs TEMPERATURE: 98.1??f Oral PULSE: 65 Right Radial, Regular NURSE NAME: Jory Jimenez CHIEF COMPLAINT Patient complains of headache and congestion HISTORY: The patient is in today complaining of pain primarily in the left facial area and sinuses.She feels congested and thought she may have had a cold at first but she has no cold symptoms. She has congestion in the ears. 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 She was given a course of Doxycycline previously for this and it did not seem to clear it up. She has Nasonex but is not using it. She does take Higinio. She has been using a saline steamer for her sinuses. CURRENT MEDICATION LIST: NASONEX NASAL SUSPENSION 50 MCG/ACT, 2 sprays each nostril q day HIGINIO ORAL TABLET 180 MG, 1 Every Day DOXYCYCLINE HYCLATE ORAL TABLET 100 MG, 1 Two Times A Day CURRENT ALLERGY LIST: ERYTHROMYCIN DERIVATIVES ROS: ENT: See HISTORY OF PRESENT ILLNESS. 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 PHYSICAL EXAMINATION: CONSTITUTIONAL: GENERAL APPEARANCE: female, THIN BODY HABITUS, in no acute distress. EARS, NOSE, MOUTH AND THROAT: EARS: Tympanic membranes shiny without retraction. Canals unremarkable. Hearing grossly normal. NOSE (AND SINUS): TURBINATES PALE BILATERALLY, TURBINATES SWOLLEN BILATERALLY. ORAL: Normal oropharynx. RESPIRATORY: Clear to auscultation and percussion. Normal respiratory effort. CARDIOVASCULAR: CARDIAC: Regular rhythm. No murmurs, rubs, or gallops. LYMPHATICS: No lymphadenopathy in the neck. ASSESSMENT/PLAN: 477.9-RHINITIS ALLERGIC UNSPECIFIED ASSESSMENT: I suspect she has sinus congestion and eustation tube dysfunction relative to allergies. We will have her use a tapering dose of Afrin to get the sinuses open and then have her resume using her Nasonex. I do not see an indication for antibiotics at this time. MEDICATIONS: AFRIN SINUS NASAL SOLUTION 0.05 %, One spray each nostril three times a day for three days, twice daily for three days, once daily for three days., 1 Dispensed, status: NEW PRESCRIPTION, 10/14/2006. NASONEX NASAL SUSPENSION 50 MCG/ACT, 2 sprays each nostril q day, 3 Dispensed, 3 Fills, status: CONTINUED, 08/02/2006. REPEAT VITAL SIGNS: BLOOD PRESSURE: 120/70. Right Arm Sitting Electronically Signed by: Leobardo Perry MD on Tuesday, October 17, 2006 documented in this encounter Plan of Treatment Not on file documented as of this encounter Visit Diagnoses Not on filedocumented in this encounter Care Teams Tie Sawyer Relationship Specialty Start Date End Date Isablela Macdonald MD [address] [place] [phone] PCP - General 10/20/01 11/12/20 documented as of this encounter
--- OUTSIDE RECORDS SUMMARY | 2024-04-26 23:31 | XMS_ITS | Encounter Summary ---
Author Organization [employer] Address [address] [place] [address] Care Team Providers Care Diet Tech Name Role Phone Isabella Macdonald MD Primary Care Provider [phone] Encounter Details Date Type Department Care Team (Late st Contact Info) Description 08/07/2007 Orders Only [facility] Internal Medicine [address] [place] [address] Isabella Macdonald MD [address] [place] [address] Social History Tobacco Use Types Packs/Day Years [...] on filedocumented in this encounter Care Teams Diet Tech Relationship Specialty Start Date End Date Isabella Macdonald MD [address] [place] [phone] PCP - General 10/20/01 11/12/20 documented as of this encounter
--- OUTSIDE RECORDS SUMMARY | 2024-04-26 23:31 | XMS_ITS | Clinical Summary ---
Author Organization [facility] Address [address] [place] [address] Care Team Providers Care Relationship Assoc Name Role Phone Unavailable Primary Care Provider Unavailabl e Allergies Active Allergy Reactions Criticality Noted Date Comments Erythromycin Unknown 12/14/2004 z pack ok Medications Cholecalciferol, Vitamin D3, (VITAMIN D) 5,000 unit Oral Tab Take by mouth. A ctive Calcium 600 mg Oral Cap Take by mouth 2 times daily. Active PHYTONADIONE (VITAMIN K ORAL) Take by mouth daily. Active multivitamin (DAILY-STUART) tablet Take 1 Tablet by mouth daily. Active Kendall-3 Fatty Acids 300 mg Capsule Take by mouth. Activ e L.ACID/L.CASEI/B. BIF/B.АНДРЕЙ/FOS (PROBIOTIC BLEND ORAL) Take by mouth. Activ e Magnesium Malate 16.2 % Powder by Misc.(Non-Drug; Combo Route) route. Active flunisolide (NASALIDE) 25 mcg (0.025 %) [place], Non-AerosolIndica tions:Acute nonseasonal allergic rhinitis due to pollen Administer 2 Sprays in each nostril 2 times daily. 25 mL 5 8 Active ESTRIOL 0.05% VAG CREAMIndications: Atrophic vaginitis INSERT 1GM VAGINALLY AT BEDTIME 1-2 TIMES WEEKLY DIRECTED 30 Gram 5 9 Active COLLAGEN MISC by Misc.(Non-Drug; Combo Route) route. Powder Active medium chain triglycerides (MCT OIL ORAL) Take by mouth. Active Cranberry 400 mg Capsule Take by mouth. Activ e OTHER Estriol 0.05% Vag Cream INSERT 1GM VAGINALLY AT BEDTIME 1-2 TIMES WEEKLY DIRECTED 30 Gram 1 1 Active sulfamethoxazole- trimethoprim (BACTRIM DS) 800-160 mg tabletIndications :Recurrent UTI Take 1 Tablet by mouth 1 time daily as needed for Other (See Comment). 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 Overview (07/04/2015): Proven on LEEP w/ negative margins ASCUS with positive high risk HPV 05/26/2015 Cataract (right) 05/05/2015 Atrophic vaginitis 04/29/2015 Hammertoe 08/22/2013 Lipoma of other skin and subcutaneous tissue Overview (07/16/2013): Right medial forearm 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 Bunion 07/02/2013 S/P breast implant, saline 07/02/2013 Family history of lung cancer 11/01/2011 Eczema 2010 Allergic rhinitis 10/14/2006 Carpal tunnel syndrome 12/14/2004 Resolved Problems Problem Noted Date Diagnosed Date Resolved Date Screening for other and unsp ecified cardiovascular conditions 09/19/2007 12/10/2008 Other screening mammogram 09/19/2007 Special screening for osteoporosis 09/19/2007 2010 Screening for malignant neop lasm of the rectum 09/19/2007 12/10/2008 Screening for malignant neop lasm of the cervix 09/19/2007 12/10/2008 Unspecified vitamin D deficiency 09/12/2007 12/10/2008 Screening for lipoid disorders 09/12/2007 12/10/2008 Screening for thyroid disorder 09/12/2007 12/10/2008 Screening for iron deficiency anemia 09/12/2007 12/10/2008 Special screening for other specified conditions(V82.89) 09/12/2007 12/10/2008 Acute maxillary sinusitis 05/19/2006 Acute upper respiratory infe ctions of unspecified site 01/13/2006 12/10/2008 Other ill-defined disorder of eye 04/13/2005 12/10/2008 Otalgia, unspecified 03/15/2005 009 Depressive disorder, not elsewhere classified 12/15/19 05 12/10/2008 Routine general medical exam ination at a health care facility 12/08/2004 12/10/2008 Contact dermatitis and other eczema due to detergents 12/08/2004 12/10/2008 Routine gynecological examination 12/08/2004 12/10/2008 Immunizations Immunization Administration Dates Next Due (ADACEL/BOOSTRIX)(10 YR UP) TDAP VACCINE, 0.5ML, IM 09/30/2020,12/10/2008 (PFIZER)(12 YR UP) COVID-19 VACCINE - EMERGENCY USE AUTHORIZATION, MRNA, [id number](PF) 30 MCG/0.3 ML IM SUSP 06/02/2020,05/12/2020 (PNEUMOVAX 23)(50 YRS UP) PN EUMOCOCCAL POLYSACCHARIDE (PPV23) 0.5 ML, IM 09/30/2020 Family History Medical History Relation Name Comments Other Brother 1 overweight Healthy Brother 2 Heart Disease Father 83 mi Hypertension Father 83 Lung Cancer Maternal Grandfather Breast Cancer Maternal Grandmother Other Mother 79 copd Lung Cancer Paternal Grandfather Healthy Sister 1 Healthy Sister 2 Colon Cancer Neg Hx Ovarian Cancer Neg Hx Relation Name Status Comments Brother 1 Alive Brother 2 Alive Father 83 Maternal Grandfather Maternal Grandmother Mother 79 Paternal Grandfather Sister 1 Alive Sister 2 Alive Social History Tobacco Use Types Packs/Day Years Used Date Smoking Tobacco: Never Smokeless Tobacco: Never Tobacco Cessation:Counseling Given: Yes Alcohol Use Standard Drinks/Week Comments Yes 2 (1 standard drink = 0.6 oz pur e alcohol) wine nightly Comments No Sex and Gender Information Value Date Recorded Sex Assigned at Not on file Legal Sex Female 3:27 PM CDT Gender Identity Not on file Sexual Orientation Not on file Occupation Industry Job Start Date Job End Date Not on file Not on file Not on file Not on file Last Filed Vital Signs Vital Sign Reading Time Taken Comments Blood Pressure 112/84 09/30/2020 9:22 AM CDT Pulse 77 09/30/2020 9:22 AM CDT Temperature 36.1 ??C (97 ??F) 10/19/2019 2:22 PM CDT Respiratory Rate 20 10/19/2019 2:34 PM CDT Oxygen Saturation 98% 09/30/2020 9:22 AM CDT Inhaled Oxygen Concentration - - Weight 50.8 kg (112 lb) 09/30/2020 9:22 AM CDT Height 162.6 cm (5' 4 ) 09/30/2020 9:22 AM CDT Body Mass Index 19.22 09/30/2020 9:22 AM CDT Plan of Treatment Health Maintenance Due Date Last Done Comments FIT-DNA Q 3 years 08/09/2000 FIT/FOBT Q 1 year 08/09/2000 Flex Sig/CT Colonography Q 5 years 08/09/2000 ZOSTER VACCINE (1 of 2) 08/09/2005 PNEUMOCOCCAL VACCINE 65+ YEA RS (2 of 2 - PCV) 09/30/2021 09/30/2020 BREAST CANCER SCREENING 10/03/2021 10/04/19 21, 09/10/2019, 09/04/2018, Additional history exists COLORECTAL SCREENING 10/18/2022 10/19/2019, 10/19/2019, 02/18/2009, Additional history exists Colorectal Cancer Screening 10/18/2022 INFLUENZA VACCINE (#1) 2023 COVID-19 Vaccine (3 - 2023-2 5 season) 2023 06/02/2020, 05/12/2020 RSV VACCINE (60+ or ) (1 - 1-dose 75+ series) 08/09/2030 DTAP/TDAP/TD VACCINES (3 - T d or Tdap) 09/30/2030 09/30/2020, 12/10/2008 OSTEOPOROSIS SCREENING Completed 01/14/2009 Procedures Procedure Name Priority Date/Time Associated Diagnosis Comments MAMMO DIAG BILAT 3D LANA W OR WO CAD Routine 10/03/2020 8:09 AM CDT Breast implant status COLONOSCOPY REPORT 10/19/2019 2: 27 PM CDT XR DEXA BONE DENSITY AXIAL 1 OR MORE SITES Routine 01/14/2009 9:29 AM CDT Special Screening for Osteoporosis from Last 3 Months or Most Recently Relevant to Health Maintenance Results * MAMMO DIAG BILAT 3D LANA W OR WO CAD (10/03/2020 8:09 AM CDT) Anatomical Region Laterality Modality Breast Bilateral Mammography Impressions 10/03/2020 10:15 AM CDT IMPRESSION: 1. Stable bilateral mammogram with no evidence of malignancy. 2. Unremarkable ultrasound of the lower left breast. RECOMMENDATION: 1. Clinical follow-up is recommended for further management of the patient's symptoms. 2. Annual mammography is recommended. DICTATION LOCATION: [facility] Narrative 10/03/2020 10:15 AM CDT BILATERAL DIAGNOSTIC DIGITAL IMPLANT MAMMOGRAM WITH 3D TOMOSYNTHESIS AND CAD LEFT BREAST ULTRASOUND, LIMITED DATE: 10/03/2020 ?? HISTORY: The patient complains of subjective change in the left breast which she feels has dropped in position relative to the right side. Previous bilateral breast augmentation with subsequent implant replacement in 2009. COMPARISON: July 2013 through September 2019. BREAST COMPOSITION: Heterogeneously dense, which limits the sensitivity of mammography FINDINGS: MAMMOGRAM: The bilateral fibroglandular pattern remains stable. No new mass, distortion or concerning area of asymmetry has developed within either breast. The bilateral subpectoral silicone implants remain intact. There is persistent asymmetry of the implants, with the left implant extending more anteriorly within the breast on the full-field craniocaudal view. The appearance is unchanged. There is no evidence of extravasated intraparenchymal silicone. CAD was utilized. ULTRASOUND: High-resolution ultrasound was performed throughout the inferior left breast to include the areas of clinical concern. No discrete solid or cystic lesion is appreciated. No architectural distortion or acoustic shadowing is seen. The underlying breast implant is noted. OVERALL FINAL ASSESSMENT: BI-RADS CATEGORY 1 - Negative. us Isabella Macdonald MD MAMMO ORDERABLES Edited Resu lt - Final * COLONOSCOPY REPORT (10/19/2019 2:27 PM CDT) Narrative Procedure Note Satya Mi MD - 10/19/2019 2:26 PM CDT [facility] Patient Name: Nara Lopez Procedure Date: 10/19/2019 Date of : 1955 Admit Type: Outpatient Attending MD: Satya Mi MD Procedure: Colonoscopy Indications: Screening for colorectal malignant neoplasm, Last colonoscopy: 2008 Providers: Satya Mi MD Referring MD: Isabella Macdonald MD Complications: No immediate complications. Procedure: Informed consent was obtained for the procedure, including moderate sedation after risks were discussed. Based on the pre-procedure assessment, including review of the patient's medical history, medications, allergies, and review of systems, the patient was deemed to be an appropriate candidate for sedation. A timeout was performed. Continuous ECG monitoring, pulse oximetry, blood pressure monitoring, and direct observation were performed. The Colonoscope was introduced through the anus and advanced to the terminal ileum. The colonoscopy was performed without difficulty. The patient tolerated the procedure well. The quality of the bowel preparation was adequate to identify polyps. Estimated Blood Loss: Estimated blood loss was minimal. Findings: The digital rectal exam was normal. The terminal ileum appeared normal. Multiple diverticula were found in the entire colon. A 4 mm polyp was found in the ascending colon. The polyp was sessile. The polyp was removed with a cold snare. Resection and retrieval were complete. Two sessile polyps were found in the rectum. The polyps were 3 to 4 mm in size. These polyps were removed with a cold snare. Resection and retrieval were complete. The retroflexed view of the distal rectum and anal verge was normal and showed no anal or rectal abnormalities. Impression: - The examined portion of the ileum was normal. - Diverticulosis in the entire examined colon. - One 4 mm polyp in the ascending colon, removed with a cold snare. Resected and retrieved. - Two 3 to 4 mm polyps in the rectum, removed with a cold snare. Resected and retrieved. - The distal rectum and anal verge are normal on retroflexion view. Recommendation: - Discharge patient to home. - Continue present medications. - Await pathology results. - If you are active on [employer], you will receive the biopsy results as a message via that account. If you do not have [employer] account, you will receive a call from my office regarding your results. If you do not hear from us about your results within a week, please contact our office at [phone] . Satya Mi MD 10/19/2019 2:26:16 PM This report has been signed electronically. Number of Addenda: [address]; [place] [address] us Satya Mi MD GI PROCEDURE ORDERABLES Final Result * XR DEXA BONE DENSITY AXIAL 1 OR MORE SITES (01/14/2009 9:29 AM CDT) Anatomical Region Laterality Modality Digital Radiogra phy 01/14/2009 9:29 AM CDT Impressions 01/14/2009 10:29 AM CDT IMPRESSION: Lumbar spine: This patient's bone mineral density of the spine is normal ??when compared to the normal range of young adults and present fracture risk is considered to be very low. Hips: This patient's bone mineral density of the hip is mildly osteopenic when compared to the normal range of young adults and present fracture risk is considered to be very low but could increase by age 65. Comments: None. Detailed report to follow. Dictated by Dr. Adriano Hudson MD FAC Narrative 01/14/2009 10:29 AM CDT Examination: ??Bone Density Study (DEXA) Clinical History: 53 year-old menopausal ??female. Monitor for osteoporosis. Findings: Lateral radiograph of the lumbar spine: No evidence of fracture. Comparison values to prior exams: Lumbar Spine (L 1-4 ??) bone mineral density is 1.20 g/sq cm which corresponds to a T-score of +0.2. The prior spine bone mineral density on 12/21/2004 was 1.20 g/sq cm which represents no change. Left femoral neck bone mineral density is 0.89 g/sq cm which corresponds to a T- score of -1.0. The prior femoral neck bone mineral density on 12/21/2004 was 0.96 g/sq cm which represents a decrease of 0.062 g/sq cm or -6.4 %. Right femoral neck bone mineral density is 0.89 g/sq cm which corresponds to a T-score of -1.0. Procedure Note Adriano Hudson MD - 01/14/2009 Examination: Bone Density Study (DEXA) Clinical History: 53 year-old menopausal female. Monitor forosteoporosis. Findings: Lateral radiograph of the lumbar spine: No evidence of fracture. Comparison values to prior exams: Lumbar Spine (L 1-4 ) bone mineral density is 1.20 g/sq cm whichcorresponds to a T-score of +0.2. The prior spine bone mineral density on 12/21/2004 was 1.20 g/sq cm whichrepresents no change. Left femoral neck bone mineral density is 0.89 g/sq cm which correspondsto a T- score of -1.0. The prior femoral neck bone mineral density on 12/21/2004 was 0.96 g/sq cm whichrepresents a decrease of 0.062 g/sq cm or -6.4 %. Right femoral neck bone mineral density is 0.89 g/sq cm which correspondsto a T- score of -1.0. IMPRESSION IMPRESSION: Lumbar spine: This patient's bone mineral density of the spine is normalwhen compared to the normal range of young adults and present fracture risk is considered to be verylow. Hips: This patient's bone mineral density of the hip is mildly osteopenicwhen compared to the normal range of young adults and present fracture risk is considered to be verylow but could increase by age 65. Comments: None. Detailed report to follow. Dictated by Dr. Adriano Hudson MD [facility] Isabella Macdonald MD DIAGNOSTIC IMAGING ORDERABLE S Final Result from Last 3 Months or Most Recently Relevant to Health Maintenance Insurance [facility] [id number] RX [facility] MEDIMPACT Member Subscriber Plan / Payer (Ef fective for All Dates) Name:NARA LOPEZ Relation to Subscriber:Self Name:Nara Lopez Payer ID:Not on file Group ID:[id number] Type:RX Medicare Part D Address: [place] Advance Directives For more information, please contact: [phone] * Full Code (Latest Code Status on File) Date Activated Date Inactivated Comments 10/19/2019 12:13 PM 10/19/2019 4:48 PM * Full Code Date Activated Date Inactivated Comments 07/02/2015 8:15 AM 07/02/2015 12:16 PM * Full Code Date Activated Date Inactivated Comments 07/02/2015 7:24 AM 07/02/2015 8:15 AM * Full Code Date Activated Date Inactivated Comments 07/02/2015 7:24 AM 07/02/2015 7:24 AM * Full Code Date Activated Date Inactivated Comments 02/18/2009 8:11 AM 02/19/2009 2:02 AM
--- OUTSIDE RECORDS SUMMARY | 2024-04-26 23:31 | XMS_ITS | Encounter Summary ---
Author Organization [employer] Address [address] [place] [address] Care Team Providers Care Slip Presser Name Role Phone Isabella Macdonald MD Primary Care Provider [phone] Encounter Details Date Type Department Care Team (Late st Contact Info) Description 11/25/2008 Outpatient Historical [facility] Isabella Macdonald MD [address] [facility] [address] [place] [address] Abdominal Pain, Other Specified Site Social History Tobacco Use Types Packs/Day Years Used Date Smoking Tobacco: Never Alcohol Use Standard Drinks/Week Comments Not Asked 0 (1 standard drink = 0.6 oz pur e alcohol) Comments No Sex and Gender Information Value Date Recorded Sex Assigned at Not on file Legal Sex Female 3:27 PM CDT Gender Identity Not on file Sexual Orientation Not on file documented as of this encounter Plan of Treatment Not on file documented as of this encounter Procedures Procedure Name Priority Date/Time Associated Diagnosis Comments US PELVIS + TRANSVAG NON OB Routine 11/25/2008 10:30 AM CDT documented in this encounter Results * US PELVIS + TRANSVAG NON OB (11/25/2008 10:30 AM CDT) Anatomical Region Laterality Modality Pelvis Other 11/25/2008 10:3 0 AM CDT Narrative 11/25/2008 5:09 PM CDT ? [facility] ? [address] ?[place] ??[id number] ?Admit Date: 11/25/2008 ?NARA MARCUS ?Sex: F ?Admit Prov: CINTHYA, ISABELLA A ? Date: 1955 ?Primary Care Prov: CINTHYA, ISABELLA A ? CMRN: [id number] ?Room: [facility] ? SSN: [id number] ? IMAGING SERVICES ?Ordering Prov: N/A ? Accession Number: [id number] ?Interpretation ? PELVIC ULTRASOUND, 11/25/2008. ? CLINICAL HISTORY: Pressure and suprapubic pain, history of urinary tract ? infection. ? FINDINGS: Sagittal and transverse real-time examination reveals the uterus ? to be normal in size measuring 7.4 x 2.3 x 3.8 cm in diameter. Endometrial ? thickness on the transabdominal image is about 2 mm. There is no free ? fluid. The left ovary is 3.5 x 1.5 x 2.3 cm in size and appears normal. The ? right ovary is 1.9 x 0.6 x 1.8 cm in size and appears normal. ? TRANSVAGINAL PELVIC ULTRASOUND, 11/25/08 ? Sagittal and transverse transvaginal pelvic ultrasound reveals endometrial ? thickness to be 1.2 mm. There is minimal free fluid in the cul-de-sac to a ? degrees which is considered physiologic. The right ovary is 2.7 x 1.0 x 1.3 ? cm in size and appears normal. The left ovary is 2.7 x 1.0 x 1.6 cm in ? diameter and appears normal. No masses or cysts are demonstrated and there ? is no free fluid. No uterine masses are seen. ? CONCLUSION: ? Normal examination. ? . ? Dictated by: ??LEONIE MONTESINOS ?11/25/2008 10:46 ? Electronically signed by: ??LEONIE MONTESINOS ??11/25/2008 17:08 ? Transcribed: ??11/25/2008 13:38 Procedure Note Provider, Historical - 11/25/2008 [facility] [address] [place], [place] [address] Admit Date: 11/25/2008 NARA MARCUS Sex: F Admit Prov: JAYLON MACDONALDYVONNE Hussein Date: 1955 Primary Care Prov: ISABELLA MACDONALD CMRN: [id number] Room: [facility] SSN: [id number] [place] [address] IMAGING SERVICES Ordering Prov: N/A Interpretation PELVIC ULTRASOUND, 11/25/2008. CLINICAL HISTORY: Pressure and suprapubic pain, history of urinarytract infection. FINDINGS: Sagittal and transverse real-time examination reveals theuterus to be normal in size measuring 7.4 x 2.3 x 3.8 cm in diameter.Endometrial thickness on the transabdominal image is about 2 mm. There is nofree fluid. The left ovary is 3.5 x 1.5 x 2.3 cm in size and appearsnormal. The right ovary is 1.9 x 0.6 x 1.8 cm in size and appears normal. TRANSVAGINAL PELVIC ULTRASOUND, 11/25/08 Sagittal and transverse transvaginal pelvic ultrasound revealsendometrial thickness to be 1.2 mm. There is minimal free fluid in the [id number] a degrees which is considered physiologic. The right ovary is 2.7 x 1.0x 1.3 cm in size and appears normal. The left ovary is 2.7 x 1.0 x 1.6 cmin diameter and appears normal. No masses or cysts are demonstrated andthere is no free fluid. No uterine masses are seen. CONCLUSION: Normal examination. . Dictated by: LEONIE MONTESINOS 11/25/2008 10:46 Electronically signed by: LEONIE MONTESINOS 11/25/2008 17:08 Transcribed: 11/25/2008 13:38 Isabella Macdonald MD ORDERABLES Final Result documented in this encounter Visit Diagnoses Diagnosis Abdominal pain, other specified site documented in this encounter Care Teams Slip Presser Relationship Specialty Start Date End Date Isabella Macdonald MD [address] [place] [address] PCP - General 10/20/01 11/12/20 documented as of this encounter
--- OUTSIDE RECORDS SUMMARY | 2024-04-26 23:31 | XMS_ITS | Encounter Summary ---
Author Organization [employer] Address [address] [place] [address] Care Team Providers Care Device Sales Consultant Name Role Phone Isabella Macdonald MD Primary Care Provider [phone] Encounter Details Date Type Department Care Team (Late st Contact Info) Description 09/30/2006 Orders Only [facility] Internal Medicine [address] [place] [address] Isabella Macdonald MD [facility] [address] [place] [address] Social History Tobacco Use Types Packs/Day Years Used Date Smoking Tobacco: Never Assessed Comments Unknown Sex and Gender Information Value Date Recorded Sex Assigned at Not on file Legal Sex Female 3:27 PM CDT Gender Identity Not on file Sexual Orientation Not on file documented as of this encounter Progress Notes * Isabella Macdonald MD - 08/23/2007 6:13 PM CDT TIME:09:39 am PATIENT`S HOME PHONE: PATIENT`S WORK PHONE: PATIENT`S INSURANCE: [facility] WHO TOOK THE CALL: Tamia Rutledge L GENERAL INFORMATION PATIENT STATUS: Established Patient. LAST VISIT: 08/02/06 WHO CALLED: Patient called. CURRENT ALLERGY LIST: ERYTHROMYCIN DERIVATIVES PHARMACY NUMBER: [id number] PROBLEMS: CONGESTION: Patient complains of nasal congestion. facial pressure HEADACHE: Patient complains of headache. and is really tired x 2 wks SECTION 1: [facility] at 09:42 am: MEDICATION REQUEST: Patient wants medications and can not come in. DOCTOR`S RESPONSE: ernie 09/30/06 at 10:19 am MEDICATIONS: Call in to Pharmacy DOXYCYCLINE HYCLATE ORAL TABLET 100 MG, 1 Two Times A Day, 14 Dispensed, status: NEW PRESCRIPTION, 09/30/2006. mucinex FINAL [facility] at 11:33 am Spoke with patient 09/30/06 at 11:33 am. Called pharmacy at 09/30/06 at 11:33 am. LM on pharmacy voice mail./wlf Electronically Signed by: Tamia Rutledge on Saturday, September 30, 2006 documented in this encounter Plan of Treatment Not on file documented as of this encounter Visit Diagnoses Not on filedocumented in this encounter Care Teams Device Sales Consultant Relationship Specialty Start Date End Date Isabella Macdonald MD [address] [place] [address] PCP - General 10/20/01 11/12/20 documented as of this encounter
--- OUTSIDE RECORDS SUMMARY | 2024-04-26 23:31 | XMS_ITS | Encounter Summary ---
Author Organization [employer] Address [address] [place] [address] Care Team Providers Care Or Rn Name Role Phone Isabella Macdonald MD Primary Care Provider [phone] Encounter Details Date Type Department Care Team (Late st Contact Info) Description 01/23/2007 Orders Only [facility] Internal Medicine [address] [place] [address] Isabella Macdonald MD [facility] [address] [place] [address] Social History Tobacco Use Types Packs/Day Years Used Date Smoking Tobacco: Never Assessed Comments Unknown Sex and Gender Information Value Date Recorded Sex Assigned at Not on file Legal Sex Female 3:27 PM CDT Gender Identity Not on file Sexual Orientation Not on file documented as of this encounter Progress Notes * Isabella Macdonald MD - 08/18/2007 1:32 PM CDT TIME:10:39 am PATIENT`S HOME PHONE: PATIENT`S WORK PHONE: PATIENT`S INSURANCE: [facility] WHO TOOK THE CALL: Tamia Rutledge L GENERAL INFORMATION PATIENT STATUS: Established Patient. LAST VISIT: 12/20/06 WHO CALLED: Patient called. PHARMACY NUMBER: -[facility] SECTION 1: Following up regarding Singulair 10 mg-Pt states that the medication is working really well and would like us to call out a new script to the pharmacy. DOCTOR`S RESPONSE: ernie 01/23/07 at 12:38 pm MEDICATIONS: Call in to Pharmacy SINGULAIR ORAL TABLET 10 MG, 1 Every Day, 30 Dispensed, 5 Fills, status: NEW PRESCRIPTION, 01/23/2007. FINAL ACTION: jordan 01/23/07 at 01:07 pm Spoke with patient 01/23/07 at 01:07 pm. Called pharmacy at 01/23/07 at 01:07 pm. LM on pharmacy voice mail./wlf Electronically Signed by: Tamia Rutledge on Tuesday, January 23, 2007 documented in this encounter Plan of Treatment Not on file documented as of this encounter Visit Diagnoses Not on filedocumented in this encounter Care Teams Or Rn Relationship Specialty Start Date End Date Isabella Macdonald MD [address] [place] [address] PCP - General 10/20/01 11/12/20 documented as of this encounter
--- OUTSIDE RECORDS SUMMARY | 2024-04-26 23:31 | XMS_ITS ---
Author Organization [facility] Address [address] [place] [address] Care Team Providers Care Can Technician Name Role Phone Unavailable Primary Care Provider Unavailabl e Active Problems Problem Noted Date Diagnosed Date [...] Allergic rhinitis 10/14/2006 Carpal tunnel syndrome 12/14/2004 Current Treatment and Therapy Plans No current plan information found. Past Treatment and Therapy Plans No past plan information found. Lifetime Dose Tracking * Chemical Lifetime Dose Automatic Entry Manual Entr y Effective Dose 4.3 mSv 4.3 mSv 0 mSv Total DLP 246 DLP 246 DLP 0 DLP CTDIvol Max 8.6 mGy 8.6 mGy 0 mGy CTDIvol Min 8.6 mGy 8.6 mGy 0 mGy Resolved Problems Problem Noted Date Diagnosed Date [...]
--- OUTSIDE RECORDS SUMMARY | 2024-04-26 23:32 | XMS_ITS | Encounter Summary ---
Author Organization [employer] Address [address] [place] [address] Care Team Providers Care Paste Mixing Supervisor Name Role Phone Isabella Macdonald MD Primary Care Provider [phone] Encounter Details Date Type Department Care Team (Late st Contact Info) Description 04/13/2005 Outpatient Historical [facility] Internal Medicine [address] [place] [address] Isabella Macdonald MD [address] [place] [address] Social History Tobacco Use Types Packs/Day Years Used Date Smoking Tobacco: Never Assessed Comments Unknown Sex and Gender Information Value Date Recorded Sex Assigned at Not on file Legal Sex Female 3:27 PM CDT Gender Identity Not on file Sexual Orientation Not on file documented as of this encounter Last Filed Vital Signs Vital Sign Reading Time Taken Comments Blood Pressure 108/72 04/13/2005 9:15 AM HIM DIRECTOR Pulse - - Temperature - - Respiratory Rate - - Oxygen Saturation - - Inhaled Oxygen Concentration - - Weight 49.9 kg (110 lb) 04/13/2005 9:15 AM HIM DIRECTOR Height - - Body Mass Index - - documented in this encounter Plan of Treatment Not on file documented as of this encounter Visit Diagnoses Not on filedocumented in this encounter Care Teams Paste Mixing Supervisor Relationship Specialty Start Date End Date Isabella Macdonald MD [address] [place] [address] PCP - General 10/20/01 11/12/20 documented as of this encounter
--- OUTSIDE RECORDS SUMMARY | 2024-04-26 23:32 | XMS_ITS | Encounter Summary ---
Author Organization [employer] Address [address] [place] [address] Care Team Providers Care Cell Efficiency Supervisor Name Role Phone Isabella Macdonald MD Primary Care Provider [phone] Encounter Details Date Type Department Care Team (Late st Contact Info) Description 08/29/2002 Outpatient Historical [facility] Internal Medicine [address] [place] [address] Isabella Macdonald MD [address] [place] [address] Social History Tobacco Use Types Packs/Day Years [...] on filedocumented in this encounter Care Teams Cell Efficiency Supervisor Relationship Specialty Start Date End Date Isabella Macdonald MD [address] [place] [address] PCP - General 10/20/01 11/12/20 documented as of this encounter
--- OUTSIDE RECORDS SUMMARY | 2024-04-26 23:32 | XMS_ITS | Encounter Summary ---
Author Organization [employer] Address [address] [place] [address] Care Team Providers Care Senior Front End Developer Name Role Phone Isabella Macdonald MD Primary Care Provider [phone] Encounter Details Date Type Department Care Team (Late st Contact Info) Description 10/20/2001 Outpatient Historical [facility] EM[facility] RO[facility], Authorized P NO ADDRESS ON FILE ABDOMINAL PAIN OTHER SPEC SITE (Primary Dx) Social History Tobacco Use Types Packs/Day Years Used Date Smoking Tobacco: Never Assessed Comments Unknown Sex and Gender Information Value Date Recorded Sex Assigned at Not on file Legal Sex Female 3:27 PM CDT Gender Identity Not on file Sexual Orientation Not on file documented as of this encounter Plan of Treatment Not on file documented as of this encounter Visit Diagnoses Diagnosis Abdominal pain, other specified site- Primary documented in this encounter Care Teams Senior Front End Developer Relationship Specialty Start Date End Date Isabella Macdonald MD [address] [place] [address] PCP - General 10/20/01 11/12/20 documented as of this encounter
--- OUTSIDE RECORDS SUMMARY | 2024-04-26 23:32 | XMS_ITS | Encounter Summary ---
Author Organization [employer] Address [address] [place] [address] Care Team Providers Care Ground Control Approach Technician Name Role Phone Isabella Macdonald MD Primary Care Provider [phone] Encounter Details Date Type Department Care Team (Late st Contact Info) Description 07/30/2003 Outpatient Historical [facility] Internal Medicine [address] [place] [address] Isabella Macdonald MD [address] [place] [address] Social History Tobacco Use Types Packs/Day Years [...] on filedocumented in this encounter Care Teams Ground Control Approach Technician Relationship Specialty Start Date End Date Isabella Macdonald MD [address] [place] [phone] PCP - General 10/20/01 11/12/20 documented as of this encounter
--- OUTSIDE RECORDS SUMMARY | 2024-04-26 23:32 | XMS_ITS | Encounter Summary ---
Author Organization [employer] Address [address] [place] [address] Care Team Providers Care Amusement Park Ride Mechanic Name Role Phone Isabella Macdonald MD Primary Care Provider [phone] Encounter Details Date Type Department Care Team (Late st Contact Info) Description 02/06/2004 Outpatient Historical [facility] Internal Medicine [address] [place] [address] Isabella Macdonald MD [address] [place] [address] Social History Tobacco Use Types Packs/Day Years [...] on filedocumented in this encounter Care Teams Amusement Park Ride Mechanic Relationship Specialty Start Date End Date Isabella Macdonald MD [address] [place] [address] PCP - General 10/20/01 11/12/20 documented as of this encounter
--- OUTSIDE RECORDS SUMMARY | 2024-04-26 23:32 | XMS_ITS | Encounter Summary ---
Author Organization [facility] Address [address] [place] [address] Care Team Providers Care It Portfolio Manager Name Role Phone Isabella Macdonald MD Primary Care Provider [phone] Encounter Details Date Type Department Care Team (Latest Contact Info) Description 12/21/2004 Outpatient Historical HIS [facility] Isabella Lozano MD [address] [place] [address] BREAST REPLACEMT BY OTHER MEANS (Primary Dx) Social History Tobacco Use Types [...] Associated Diagnosis Comments CBC WITH DIFFERENTIAL Routine 12/21/2004 10:52 AM CDT CBC WITH DIFFERENTIAL Routine 12/21/2004 10:52 AM CDT LIPID PANEL Routine 12/21/2004 10:52 AM CDT documented in this encounter Results * CBC WITH DIFFERENTIAL (12/21/2004 10:52 AM CDT) NEUTROPHILS 46 45 - 70 % INTERFAC E SYSTEM LYMPHOCYTES 45 16 - 45 % INTERFAC E SYSTEM MONOCYTES 7 3 - 13 % INTERFACE SYSTEM EOSINOPHILS 2 0 - 7 % INTERFAC E SYSTEM BASOPHILS 1 0 - 2 % INTERFACE SYSTEM NEUTROPHIL ABSOLUTE 2.50 1.90 - 7.00 K/uL INTERFACE SYSTEM LYMPHOCYTE ABSOLUTE 2.46 0.70 - 4.50 K/uL INTERFACE SYSTEM MONOCYTE ABSOLUTE 0.40 0.10 - 1.30 K/uL INTERFACE SYSTEM EOSINOPHIL ABSOLUTE 0.09 0.00 - 0.70 K/uL INTERFACE SYSTEM BASOPHILS ABSOLUTE 0.04 0.00 - 0.20 K/uL INTERFACE SYSTEM 12/21/2004 10:5 2 AM CDT Isabella Macdonald MD HEMATOLOGY ORDERABLES Final Result Performing Organization Address [facility] Phone Number INTERFACE SYSTEM Refer to clinic/hospital department * (ABNORMAL) CBC WITH DIFFERENTIAL (12/21/2004 10:52 AM CDT) WBC 5.5 4.0 - 9.8 K/uL INTERFACE SYSTEM RBC 4.79 3.90 - 4.90 M/uL INTERFACE SYSTEM HEMOGLOBIN 14.8 11.8 - 14.8 g/dL INTERFACE SYSTEM HEMATOCRIT 44.8(H) 35.5 - 44.0 % INTERFACE SYSTEM MCV 93.5 82.0 - 99.0 fL INTERFACE SYSTEM MCH 30.9 27.2 - 32.6 pg INTERFACE SYSTEM MCHC 33.0 31.5 - 35.5 % INTERFACE SYSTEM RDW 12.8 11.5 - 14.5 % INTERFACE SYSTEM RDW-STDEV 43.9 37.1 - 48.7 fL INTERFACE SYSTEM PLATELETS 350 140 - 350 K/uL INTERFACE SYSTEM MPV 10.7 9.3 - 12.4 fL INTERFACE SYSTEM 12/21/2004 10:5 2 AM CDT Isabella Macdonald MD HEMATOLOGY ORDERABLES Final Result Performing Organization Address [facility] de Phone Number INTERFACE SYSTEM Refer to clinic/hospital department * (ABNORMAL) LIPID PANEL (12/21/2004 10:52 AM CDT) CHOLESTEROL 201(H) 100 - 199 mg/dL INTERFACE SYSTEM TRIGLYCERIDE 59 10 - 149 mg/dL INTERFACE SYSTEM HDL 107(H) 40 - 59 mg/dL INTERFACE SYSTEM LDL CALCULATED 82 <=99 mg/dL INTERFACE SYSTEM CHOL/HDL RATIO 1.9(L) 2.0 - 5.0 INTER FACE SYSTEM Comment:See interpretive chip a section for risk classifications. LIPID PANEL COMMENT See below INTERFACE SYSTEM Comment: Adult ATP III Classifications: Cholesterol (mg/dL) ? Triglyceride (mg/dL) Desirable ? <200 ? Normal ? <150 ?? Borderline ? 200 - 239 ?? Borderline High ? 150 - 199 High ? >=240 ? High ?200 - 499 ? Very High ? >=500 ?? HDL Cholesterol (mg/dL) ? LDL (mg/dL) Low ??(increased risk) <40 ?Optimal ? <100 ?? High (reduced risk) ??>=60 ?Near or above optimal ??100 - 129 ? Borderline ? 130 - 159 ? High ? 160 - 189 ? Very High ?>=190 LDL calculation is not accurate if Triglycerides are greater than 400 mg /dL Pediatric NCEP Classifications: Cholesterol(<20 years),(mg/dL) ?Triglyceride Desirable ?<170 ?Pediatric classification Borderline ?170 - 199 ?not defined. High >=200 ? HDL (<5 years) ? LDL (mg/dL) No Reference Range Established ?Desirable ?<110 ?Borderline ?110 - 129 ?High ?>=130 12/21/2004 10:5 2 AM CDT us Isabella Macdonald MD CHEMISTRY ORDERABLES Final R esult INTERFACE SYSTEM Refer to clinic/hospital department documented in this encounter Visit Diagnoses Diagnosis Breast replaced by other means- Primary documented in this encounter Care Teams It Portfolio Manager Relationship Specialty Start Date End Date Isabella Macdonald MD [address] [place] [address] PCP - General 10/20/01 11/12/20 documented as of this encounter
--- OUTSIDE RECORDS SUMMARY | 2024-04-26 23:32 | XMS_ITS | Encounter Summary ---
Author Organization [employer] Address [address] [place] [address] Care Team Providers Care Collections Analyst Name Role Phone Isabella Macdonald MD Primary Care Provider [phone] Encounter Details Date Type Department Care Team (Late st Contact Info) Description 03/30/2002 Outpatient Historical HIS [facility] Isabella Macdonald MD [address] [place] [address] Social History Tobacco Use Types Packs/Day Years [...] on filedocumented in this encounter Care Teams Collections Analyst Relationship Specialty Start Date End Date Isbaella Macdonald MD [address] [place] [address] PCP - General 10/20/01 11/12/20 documented as of this encounter
--- OUTSIDE RECORDS SUMMARY | 2024-04-26 23:32 | XMS_ITS | Encounter Summary ---
Author Organization [employer] Address [address] [place] [address] Care Team Providers Care System Development Engineer Name Role Phone Isabella Macdonald MD Primary Care Provider [phone] Encounter Details Date Type Department Care Team (Late st Contact Info) Description 02/06/2003 Outpatient Historical [facility] Internal Medicine [address] [place] [address] Isabella Macdonald MD [address] [place] [address] Social History Tobacco Use Types Packs/Day Years [...] on filedocumented in this encounter Care Teams System Development Engineer Relationship Specialty Start Date End Date Isabella Macdonald MD [address] [place] [address] PCP - General 10/20/01 11/12/20 documented as of this encounter
--- OUTSIDE RECORDS SUMMARY | 2024-04-26 23:32 | XMS_ITS | Encounter Summary ---
Author Organization [employer] Address [address] [place] [address] Care Team Providers Care Technical Producer Name Role Phone Isabella Macdonald MD Primary Care Provider [phone] Encounter Details Date Type Department Care Team (Latest Contact Info) Description 08/30/2004 Outpatient [facility] for [facility] [address] [address] Isabella Macdonald MD [address] [place] [address] CARPAL TUNNEL SYNDROME (Primary Dx) Social History Tobacco Use Types [...] as of this encounter Visit Diagnoses Diagnosis Carpal tunnel syndrome- Primary documented in this encounter Care Teams Technical Producer Relationship Specialty Start Date End Date Isabella Macdonald MD [address] [place] [address] PCP - General 10/20/01 11/12/20 documented as of this encounter
--- OUTSIDE RECORDS SUMMARY | 2024-04-26 23:32 | XMS_ITS | Encounter Summary ---
Author Organization [employer] Address [address] [place] [address] Care Team Providers Care Land Leases And Rentals Manager Name Role Phone Isabella Macdonald MD Primary Care Provider [phone] Encounter Details Date Type Department Care Team (Latest Contact Info) Description 03/23/2004 Outpatient [facility] [place] [address] [address] Isabella Macdonald MD [address] [place] [address] CARPAL TUNNEL SYNDROME (Primary Dx) Social History [...] Primary documented in this encounter Care Teams Land Leases And Rentals Manager Relationship Specialty Start Date End Date Isabella Macdonald MD [address] [place] [address] PCP - General 10/20/01 11/12/20 documented as of this encounter
--- OUTSIDE RECORDS SUMMARY | 2024-04-26 23:32 | XMS_ITS | Encounter Summary ---
Author Organization [employer] Address [address] [place] [address] Care Team Providers Care Pressroom Foreman Name Role Phone Isabella Macdonald MD Primary Care Provider [phone] Encounter Details Date Type Department Care Team (Late st Contact Info) Description 05/04/2005 Orders Only [facility] Internal Medicine [address] [place] [address] Isabella Macdonald MD [facility] [address] [place] [address] Social History Tobacco Use Types Packs/Day Years Used Date Smoking Tobacco: Never Assessed Comments Unknown Sex and Gender Information Value Date Recorded Sex Assigned at Not on file Legal Sex Female 3:27 PM CDT Gender Identity Not on file Sexual Orientation Not on file documented as of this encounter Progress Notes * Isabella Macdonald MD - 01/11/2008 1:08 PM CDT TIME:12:49 pm PATIENT`S HOME PHONE: PATIENT`S WORK PHONE: PATIENT`S INSURANCE: [facility] WHO TOOK THE CALL: Tamia Rutledge L GENERAL INFORMATION PATIENT STATUS: Established Patient. LAST VISIT: 04/13/05 ALTERNATIVE PHONE NUMBER: [phone] WHO CALLED: Patient called. PHARMACY NUMBER: [phone] SECTION 1: Pt is requesting scripts for Nasonex and Higinio-D 1 po qd # 90, to be called out to [facility]./wlf DOCTOR`S RESPONSE: ernie 05/04/05 at 12:54 pm MEDICATIONS: Call in to Pharmacy NASONEX NASAL SUSPENSION 50 MCG/ACT, 2 sprays each nostril q day, 3 Dispensed, 3 Fills, status: CONTINUED, 05/04/2005. still unsure of dose of higinio -d SECTION 2: Pt is requesting 90 day scripts on both of these medications./wlf FINAL ACTION: jordan 05/04/05 at 03:29 pm Spoke with patient 05/04/05 at 03:29 pm. SECTION 3: Pt is taking Higinio-D 12 hr 60-120 mg 1 po bid # 180./wlf DOCTOR`S RESPONSE: ernie 05/04/05 at 04:32 pm MEDICATIONS: HIGINIO-D 12 HOUR ORAL TABLET 12 HR 60-120 MG, 1 Two Times A Day, As Needed, 180 Dispensed, 3 Fills, 90 Duration/Days Supply, status: CONTINUED, 05/04/2005. FINAL ACTION: jordan 05/05/05 at 08:10 am Called pharmacy at 05/05/05 at 08:10 am. LM on pharmacy voice mail./wlf Electronically Signed by: Tamia Rutledge on Thursday, May 05, 2005 documented in this encounter Plan of Treatment Not on file documented as of this encounter Visit Diagnoses Not on filedocumented in this encounter Care Teams Pressroom Foreman Relationship Specialty Start Date End Date Isabella Macdonald MD [address] [place] [address] PCP - General 10/20/01 11/12/20 documented as of this encounter
--- OUTSIDE RECORDS SUMMARY | 2024-04-26 23:32 | XMS_ITS | Encounter Summary ---
Author Organization [employer] Address [address] [place] [address] Care Team Providers Care Toolmaker Helper Name Role Phone Isabella Macdonald MD Primary Care Provider [phone] Encounter Details Date Type Department Care Team (Late st Contact Info) Description 03/15/2005 Outpatient Historical [facility] Internal Medicine [address] [place] [address] Isabella Macdonald MD [address] [place] [address] Social History Tobacco Use Types Packs/Day Years Used Date Smoking Tobacco: Never Assessed Comments Unknown Sex and Gender Information Value Date Recorded Sex Assigned at Not on file Legal Sex Female 3:27 PM CDT Gender Identity Not on file Sexual Orientation Not on file documented as of this encounter Last Filed Vital Signs Vital Sign Reading Time Taken Comments Blood Pressure 118/80 03/15/2005 2:[address] Pulse - - Temperature - - Respiratory Rate - - Oxygen Saturation - - Inhaled Oxygen Concentration - - Weight 50.8 kg (112 lb) 03/15/2005 2:[address] Height - - Body Mass Index - - documented in this encounter Plan of Treatment Not on file documented as of this encounter Visit Diagnoses Not on filedocumented in this encounter Care Teams Toolmaker Helper Relationship Specialty Start Date End Date Isabella Macdonald MD [address] [place] [address] PCP - General 10/20/01 11/12/20 documented as of this encounter
--- OUTSIDE RECORDS SUMMARY | 2024-04-26 23:32 | XMS_ITS | Encounter Summary ---
Author Organization [employer] Address [address] [place] [address] Care Team Providers Care Paleology Professor Name Role Phone Isabella Macdonald MD Primary Care Provider [phone] Encounter Details Date Type Department Care Team (Late st Contact Info) Description 12/08/2004 Outpatient Historical [facility] Internal Medicine [address] [place] [address] Isabella Macdonald MD [address] [place] [address] Social History Tobacco Use Types Packs/Day Years Used Date Smoking Tobacco: Never Assessed Comments Unknown Sex and Gender Information Value Date Recorded Sex Assigned at Not on file Legal Sex Female 3:27 PM CDT Gender Identity Not on file Sexual Orientation Not on file documented as of this encounter Last Filed Vital Signs Vital Sign Reading Time Taken Comments Blood Pressure 104/70 12/08/2004 10:30 AM CDT Pulse - - Temperature - - Respiratory Rate - - Oxygen Saturation - - Inhaled Oxygen Concentration - - Weight 51.3 kg (113 lb) 12/08/2004 10:30 AM CDT Height - - Body Mass Index - - documented in this encounter Plan of Treatment Not on file documented as of this encounter Visit Diagnoses Not on filedocumented in this encounter Care Teams Paleology Professor Relationship Specialty Start Date End Date Isabella Macdonald MD [address] [place] [address] PCP - General 10/20/01 11/12/20 documented as of this encounter
--- OUTSIDE RECORDS SUMMARY | 2024-04-26 23:32 | XMS_ITS | Encounter Summary ---
Author Organization [facility] Address [address] [place] [address] Care Team Providers Care [place] Name Role Phone Isabella Macdonald MD Primary Care Provider [phone] Encounter Details Date Type Department Care Team (Latest Contact Info) Description 03/15/2006 Outpatient Historical [facility] Isabella Lozano MD [address] [place] [address] Other Screening Mammogram (Primary Dx) Social History Tobacco Use Types [...] as of this encounter Visit Diagnoses Diagnosis Other screening mammogram- Primary documented in this encounter Care Teams [place] Relationship Specialty Start Date End Date Isabella Macdonald MD [address] [place] [address] PCP - General 10/20/01 11/12/20 documented as of this encounter
--- OUTSIDE RECORDS SUMMARY | 2024-04-26 23:32 | XMS_ITS | Encounter Summary ---
Author Organization [employer] Address [address] [place] [address] Care Team Providers Care Systems Administration Analyst Name Role Phone Isabella Macdonald MD Primary Care Provider [phone] Encounter Details Date Type Department Care Team (Late st Contact Info) Description 01/13/[address] [facility] Internal Medicine [address] [place] [address] Isabella Macdonald MD [address] [place] [address] Social History Tobacco Use Types Packs/Day Years Used Date Smoking Tobacco: Never Assessed Comments Unknown Sex and Gender Information Value Date Recorded Sex Assigned at Not on file Legal Sex Female 3:27 PM CDT Gender Identity Not on file Sexual Orientation Not on file documented as of this encounter Last Filed Vital Signs Vital Sign Reading Time Taken Comments Blood Pressure 108/62 01/13/2006 11:30 AM CDT Pulse - - Temperature - - Respiratory Rate - - Oxygen Saturation - - Inhaled Oxygen Concentration - - Weight 51.7 kg (114 lb) 01/13/2006 11:30 AM CDT Height - - Body Mass Index - - documented in this encounter Plan of Treatment Not on file documented as of this encounter Visit Diagnoses Not on filedocumented in this encounter Care Teams Systems Administration Analyst Relationship Specialty Start Date End Date Isabella Macdonald MD [address] [place] [address] PCP - General 10/20/01 11/12/20 documented as of this encounter
--- OUTSIDE RECORDS SUMMARY | 2024-04-26 23:32 | XMS_ITS | Encounter Summary ---
Author Organization [employer] Address [address] [place] [address] Care Team Providers Care Performance Consultant Name Role Phone Isabella Macdonald MD Primary Care Provider [phone] Encounter Details Date Type Department Care Team (Latest Contact Info) Description 07/29/2004 Outpatient [facility] Center for [address] [address] Isabella Macdonald MD [address] [place] [address] CARPAL TUNNEL SYNDROME (Primary Dx) Social History [...] Primary documented in this encounter Care Teams Performance Consultant Relationship Specialty Start Date End Date Isabella Macdonald MD [address] [place] [address] PCP - General 10/20/01 11/12/20 documented as of this encounter
--- OUTSIDE RECORDS SUMMARY | 2024-04-26 23:32 | XMS_ITS | Encounter Summary ---
Author Organization [employer] Address [address] [place] [address] Care Team Providers Care Laboratory Animal Care Veterinarian Name Role Phone Isabella Macdonald MD Primary Care Provider [phone] Encounter Details Date Type Department Care Team (Latest Contact Info) Description 04/24/2004 Outpatient [facility] Center for [address] [address] Isabella Macdonald MD [address] [place] [address] CARPAL TUNNEL SYNDROME (Primary Dx) Social History [...] Primary documented in this encounter Care Teams Laboratory Animal Care Veterinarian Relationship Specialty Start Date End Date Isabella Macdonald MD [address] [place] [address] PCP - General 10/20/01 11/12/20 documented as of this encounter
--- OUTSIDE RECORDS SUMMARY | 2024-04-26 23:32 | XMS_ITS | Encounter Summary ---
Author Organization [employer] Address [address] [place] [address] Care Team Providers Care Airplane Navigator Name Role Phone Isabella Macdonald MD Primary Care Provider [phone] Encounter Details Date Type Department Care Team (Late st Contact Info) Description 03/05/2004 Outpatient Historical [facility] Internal Medicine [address] [place] [address] Isabella Macdonald MD [address] [place] [address] Social History Tobacco Use Types Packs/Day Years [...] on filedocumented in this encounter Care Teams Airplane Navigator Relationship Specialty Start Date End Date Isabella Macdonald MD [address] [place] [address] PCP - General 10/20/01 11/12/20 documented as of this encounter
--- OUTSIDE RECORDS SUMMARY | 2024-04-26 23:32 | XMS_ITS | Encounter Summary ---
Author Organization [employer] Address [address] [place] [address] Care Team Providers Care Property Management Specialist Name Role Phone Isabella Macdonald MD Primary Care Provider [phone] Encounter Details Date Type Department Care Team (Late st Contact Info) Description 09/06/2002 Outpatient Historical [facility] Internal Medicine [address] [place] [address] Isabella Macdonald MD [address] [place] [address] Social History Tobacco Use Types Packs/Day Years [...] on filedocumented in this encounter Care Teams Property Management Specialist Relationship Specialty Start Date End Date Isabella Macdonald MD [address] [place] [address] PCP - General 10/20/01 11/12/20 documented as of this encounter
--- OUTSIDE RECORDS SUMMARY | 2024-04-26 23:32 | XMS_ITS | Encounter Summary ---
Author Organization [employer] Address [address] [place] [address] Care Team Providers Care Fruit Express Agent Name Role Phone Isabella Macdonald MD Primary Care Provider [phone] Encounter Details Date Type Department Care Team (Latest Contact Info) Description 06/27/2004 Outpatient [facility] Center for [address] [address] Isabella Macdonald MD [address] [place] [address] CARPAL TUNNEL SYNDROME (Primary Dx) Social History [...] Primary documented in this encounter Care Teams Fruit Express Agent Relationship Specialty Start Date End Date Isabella Macdonald MD [address] [place] [address] PCP - General 10/20/01 11/12/20 documented as of this encounter
--- OUTSIDE RECORDS SUMMARY | 2024-04-26 23:32 | XMS_ITS | Encounter Summary ---
Author Organization [facility] Address [address] [place] [address] Care Team Providers Care Highway Landscape Architect Name Role Phone Isabella Macdonald MD Primary Care Provider [phone] Encounter Details Date Type Department Care Team (Latest Contact Info) Description 04/05/2006 Outpatient Historical [facility] Isabella Lozano MD [address] [place] [phone] Abnormal Mammogram, Unspecified (Primary Dx) Social History Tobacco Use Types [...] as of this encounter Visit Diagnoses Diagnosis Abnormal mammogram, unspecified- Primary documented in this encounter Care Teams Highway Landscape Architect Relationship Specialty Start Date End Date Isabella Macdonald MD [address] [place] [address] PCP - General 10/20/01 11/12/20 documented as of this encounter
--- OUTSIDE RECORDS SUMMARY | 2024-04-26 23:32 | XMS_ITS | Encounter Summary ---
Author Organization [employer] Address [address] [place] [address] Care Team Providers Care Eyelet Operator Name Role Phone Isabella Macdonald MD Primary Care Provider [phone] Encounter Details Date Type Department Care Team (Latest Contact Info) Description 02/06/2004 Outpatient [facility] for [place] [address] [address] Isabella Macdonald MD [address] [place] [address] SKIN SENSATION DISTURB (Primary Dx) Social History Tobacco Use Types [...] as of this encounter Visit Diagnoses Diagnosis Disturbance of skin sensation- Primary documented in this encounter Care Teams Eyelet Operator Relationship Specialty Start Date End Date Isabella Macdonald MD [address] [place] [address] PCP - General 10/20/01 11/12/20 documented as of this encounter
--- OUTSIDE RECORDS SUMMARY | 2024-04-26 23:32 | XMS_ITS | Encounter Summary ---
Author Organization [employer] Address [address] [place] [address] Care Team Providers Care Retreader Name Role Phone Isabella Macdonald MD Primary Care Provider [phone] Encounter Details Date Type Department Care Team (Late st Contact Info) Description 08/16/2002 Outpatient Historical [facility] Internal Medicine [address] [place] [address] Isabella Macdonald MD [address] [place] [address] Social History Tobacco Use Types Packs/Day Years [...] on filedocumented in this encounter Care Teams Retreader Relationship Specialty Start Date End Date Isabella Macdonald MD [address] [place] [address] PCP - General 10/20/01 11/12/20 documented as of this encounter
--- OUTSIDE RECORDS SUMMARY | 2024-04-26 23:32 | XMS_ITS | Encounter Summary ---
Author Organization [employer] Address [address] [place] [address] Care Team Providers Care Bar Tacker Name Role Phone Isabella Macdonald MD Primary Care Provider [phone] Encounter Details Date Type Department Care Team (Late st Contact Info) Description 03/17/2004 Outpatient Historical [facility] Internal Medicine [address] [place] [address] Isabella Macdonald MD [address] [place] [address] Social History Tobacco Use Types Packs/Day Years [...] on filedocumented in this encounter Care Teams Bar Tacker Relationship Specialty Start Date End Date Isabella Macdonald MD [address] [place] [address] PCP - General 10/20/01 11/12/20 documented as of this encounter
--- OUTSIDE RECORDS SUMMARY | 2024-04-26 23:32 | XMS_ITS | Encounter Summary ---
Author Organization [employer] Address [address] [place] [address] Care Team Providers Care Fabrication Technician Name Role Phone Isabella Macdonald MD Primary Care Provider [phone] Encounter Details Date Type Department Care Team (Late st Contact Info) Description 09/13/2003 Outpatient Historical [facility] Internal Medicine [address] [place] [address] Isabella Macdonald MD [address] [place] [address] Social History Tobacco Use Types Packs/Day Years [...] on filedocumented in this encounter Care Teams Fabrication Technician Relationship Specialty Start Date End Date Isabella Macdonald MD [address] [place] [address] PCP - General 10/20/01 11/12/20 documented as of this encounter
--- OUTSIDE RECORDS SUMMARY | 2024-04-26 23:32 | XMS_ITS | Encounter Summary ---
Author Organization [employer] Address [address] [place] [address] Care Team Providers Care Cardiopulmonary Physical Therapist Name Role Phone Isabella Macdonald MD Primary Care Provider [phone] Encounter Details Date Type Department Care Team (Latest Contact Info) Description 05/26/2004 Outpatient [facility] Center for [address] [address] Isabella Macdonald MD [address] [place] [address] CARPAL TUNNEL SYNDROME (Primary Dx) Social History [...] Primary documented in this encounter Care Teams Cardiopulmonary Physical Therapist Relationship Specialty Start Date End Date Isabella Macdonald MD [address] [place] [address] PCP - General 10/20/01 11/12/20 documented as of this encounter
--- OUTSIDE RECORDS SUMMARY | 2024-04-26 23:32 | XMS_ITS | Encounter Summary ---
Author Organization [email or web address] Address [address] [place] [address] Care Team Providers Care Mine Supervisor Name Role Phone Isabella Macdonald MD Primary Care Provider [phone] Encounter Details Date Type Department Care Team (Late st Contact Info) Description 03/30/2002 Outpatient Historical [facility] Isabella Macdonald MD [address] [place] [address] Social History Tobacco Use Types Packs/Day Years [...] on filedocumented in this encounter Care Teams Mine Supervisor Relationship Specialty Start Date End Date Isabella Macdonald MD [address] [place] [address] PCP - General 10/20/01 11/12/20 documented as of this encounter
--- OUTSIDE RECORDS SUMMARY | 2024-04-26 23:34 | XMS_ITS | Continuity of Care Document ---
Author Organization [facility] Address [address] [place] [address] Phone Care Team Providers Care Package Wrapper Name Role Phone Arun Garrett MD Unavailable Unavailable Advance Directives Directive Yes / No Effective Date File Name No Information Encounters Encounter Description Practice Location Reason(s) For Visit Diagnoses Date Provider Providers Copied on Encounter [employer], [address], [place], [place], [id number], [place] tel:[phone] [facility] No Information Tami Dias. [address] [place], [place], [id number], [place]. tel:[phone] Referring Provider: Jimy Chacon, [address], [address]. tel:[phone] Family History Family Member Type Diagnosis Age At Onset No Information Payers Payer name Insurance type Covered republican ID Authoriza tion(s) [employer] [id number] Social History Type Description Quantity Date Captured Comments Sex Female Smoking Status No Information Chief Complaint And Reason For Visit No Information Reason For Referral Reason For Referral No Information History Of Present Illness Encounter Date Complaint History Of Prese nt Illness No Information Functional Status Date Functional Assessmen t No Information Instructions Date Instruction Additional Infor mation No Information Assessments Type Assessment Date No Information Patient Care Teams Name Effective Dates (start - stop) Status Members No Information
--- OUTSIDE RECORDS SUMMARY | 2024-04-26 23:34 | XMS_ITS | Referral Summary ---
Author Organization [facility] Address [address] [place] [address] Phone Care Team Providers Care Auto Design Checker Name Role Phone Jose Morales MD Primary Care Provider [phone] Unknown, Notinfile Unavailable Unavailable Kellie Colin MD Unavailable [phone] Encounters Date Type Department Care Team Description 02/17/2024 Telephone [facility] Primary Care at [address] [address] Jose Morales MD Appointment Request 02/16/2024 8:27 PM MANAGER BANQUET - 02/16/2024 11:59 PM MANAGER BANQUET Hospital Encounter [address] [address] Left inguinal pain Discharge Disposition: Discharge to home or self care 02/16/2024 11:15 AM MANAGER BANQUET Office Visit [facility] at [address] [address] Frieda Fatima NP Left inguinal pain (Primary Dx); Acute left lower quadrant pain 02/16/2024 Nurse Triage [facility] Primary Care at [address] [phone] Jose Morales MD from Last 3 Months Allergies Active Allergy Reactions Criticality Noted Date Comments Erythromycin Nausea And Vomiting,Unknown 2004 z pack ok Erythromycin Base Rash Medium 2021 Medications cholecalciferol (VITAMIN D-3) 5,000 unit tablet Take by mouth Active multivitamin tablet Take 1 tablet by mouth daily Active fluticasone propionate (FLONASE) 50 mcg/actuation nasal spray Administer 1 spray into each nostril as needed for rhinitis Active calcium-minerals- [id number] 200 mg calcium- 200 unit tablet Take by mouth Acti ve acetaminophen (TYLENOL) 500 mg tablet Take 1 tablet (500 mg total) by mouth every 6 (six) hours as needed Active cyanocobalamin (Vitamin B-12) 1,000 mcg tabletIndications :Prevention of Vitamin B12 Deficiency Take 1 tablet (1,000 mcg total) by mouth daily Active magnesium oxide (MAG-OX) 250 mg (150.8 mg elemental) tabletIndications :hypomagnesemia 1 tablet (250 mg total) daily Active omega-3 fatty acids-fish oil 300-1,000 mg capsule Take 1,280 mg by mouth daily Active ibuprofen (ADVIL,MOTRIN) 600 mg tablet Active NON FORMULARY, FOR CLINIC ADMINISTERED MEDICATIONS ONLY, (not in database) Take 0.5 each by mouth once Green Roots Active protein powder Take by mouth A ctive RED YEAST RICE ORAL Take by mouth Active COQ10, UBIQUINOL, ORAL Take by mouth Active estradioL (ESTRACE) 0.01 % (0.1 mg/gram) vaginal cream Apply 1 gram (pea size) every other night to the vagina. 42.5 g 2 4 04/25/[address] (PROTONIX) 20 mg EC tablet TAKE 1 TABLET BY MOUTH EVERY DAY 90 tablet 1 4 Active Active Problems Problem Noted Date Diagnosed Date Hallux rigidus of right foot 12/13/2023 Assessment & Plan (12/13/2023 9:08 AM CDT): She has a hallux rigidus to her right foot secondary to joint changes most likely attributed to bunionectomy. At this time she does not have any pain to the area. I did discuss treatment options with the patient if she does have pain. I did recommended using a Vidal's extension as well as appropriate shoe gear and inserts. Recommended topical cream such as Voltaren gel or CBD cream. I explained that if she has long-term issues she may benefit from steroid injection versus surgical correction. Surgical correction could entail 1st MPJ implant arthroplasty versus arthrodesis. She does have lack of strength to her extensor hallucis longus of the right lower extremity which started when she was in her younger age. I feel that this was due to dislocation of the hip multiple times and causing nerve injury to the nerve root that goes the extensor hallucis longus. The Vidal's extension should also help bring the hallux more in dorsiflexion and prevent her toe from catching on things History of bunionectomy 12/13/2023 Assessment & Plan (12/13/2023 9:07 AM CDT): She has history of a bunionectomy to her right foot as well as hammertoe correction. The screws in her right 1st metatarsal and proximal phalanx of the hallux are intact. There are no signs of loosening. No signs of failed hardware. Administrative encounter 11/16/2023 Assessment & Plan (11/16/2023 8:47 AM CDT): A(n) yearly Essence Enhanced Encounter has been performed today. Shena Lopez is not up to date on screening tests. She is in need of DEXA and Breast cancer screening. She is up to date on needed preventative vaccinations. We discussed healthy lifestyle habits, educational material has been given. Medications reviewed, changes documented as per the medical record and discussed with patient along with risks vs benefits. Return in 1 year Encounter for screening colonoscopy 07/05/2023 Screening for colon cancer 11/17/2022 Protein-calorie malnutrition, unspecified severi ty 11/11/2022 Adjustment disorder with anxious mood 03/22/2022 Recurrent major depression 03/22/2022 Spondylosis of lumbar region without myelopathy or radiculopathy 12/15/2021 Disc degeneration, lumbar 12/15/2021 Left hip pain 12/15/2021 Encounter for medical examination to establish c are 08/11/2021 Assessment & Plan (08/11/2021 3:23 PM CDT): A(n) initial well visit to establish care has been performed today. Shena Lopez is not up to date on screening tests. She is in need of DEXA, Breast cancer screening and Colon cancer screening- will attempt to get outside records. She is not up to date on needed preventative vaccinations; She is in need of Zoster. I do want to repeat lipid panel X-ray ordered, rule out potential low back arthritis However, based on symptoms and exam it may be more likely that it was IT band dysfunction causing symptoms. We could consider physical therapy, will give a set of exercises to try at home for home rehab Blood pressure is acceptable. Continuing the current regimen for now, although I would recommend a fish oil supplement Foot pain 2021 Onychomycosis 2021 Pain in limb 2021 Sciatica, left side 2021 Tubular adenoma of colon 10/28/2019 Elevated fasting glucose 10/06/2018 Yeast vaginitis 01/16/2018 KOSTAS III (cervical intraepith elial neoplasia grade III) with 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 Overview (2021): Proven on LEEP w/ negative margins ASCUS with positive high risk HPV 05/26/2015 Cataract 05/05/2015 Atrophic vaginitis 04/29/2015 Hammertoe 08/22/2013 Lipoma of other skin and subcutaneous tissue Overview (2021): Right medial forearm 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 Eczema 2010 Allergic rhinitis 10/14/2006 Carpal tunnel syndrome 12/14/2004 Immunizations Name Administration Dates Next Due Influenza, Quadrivalent, Hig h Dose, Preservative Free, Intrr 03/22/2022 Influenza, Unspecified 11/11/2022(Deferr ed: Patient Refused),04/04/2022(Deferred: Patient Refused),02/15/2022(Deferred: Patient Refused),04/04/2021(Deferred: Patient Refused),03/04/2021,03/18/2020(Deferre d: Patient Refused) Pneumococcal Polysaccharide PPV23 09/30/2020 Tdap 09/30/2020,12/10/2008 ZOSTER Recombinant 04/09/2023,12/27/2022 Social History Tobacco Use Types Packs/Day Years Used Date Smoking Tobacco: Never Cigarettes Passive Smoke Exposure: Never Smokeless Tobacco: Never Tobacco Cessation:Counseling Given: Not Answered AUDIT-C Answer Date Recorded Q1: How often do you have a drink containing alc ohol? 2-3 times a week 07/05/2023 Q2: How many drinks containi ng alcohol do you have on a typical day when you are drinking? 1 or 2 07/05/2023 Q3: How often do you have si x or more drinks on one occasion? Never 07/05/2023 PHQ-2 Answer Date Recorded PHQ-2 Total Score (If total score is 3 or more points, staff should administer the PHQ-9) 0 11/16/2023 Personal Safety Answer Date Recorded Have you ever been in or are you currently in a harmful physical or emotional relationship or is someone making you feel afraid or unsafe? 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 Not on file Not on file Not on file Last Filed Vital Signs Vital Sign Reading Time Taken Comments Blood Pressure 126/68 02/16/2024 11:20 AM MANAGER BANQUET Pulse 86 02/16/2024 11:20 AM MANAGER BANQUET Temperature 36.8 ??C (98.3 ??F) 02/16/2024 11:[address] Respiratory Rate 18 02/16/2024 11:20 AM MANAGER BANQUET Oxygen Saturation 99% 02/16/2024 11:20 AM MANAGER BANQUET Inhaled Oxygen Concentration - - Weight 47.6 kg (105 lb) 02/16/2024 11:20 AM MANAGER BANQUET Height 160 cm (5' 3 ) 02/16/2024 11:20 AM MANAGER BANQUET Body Mass Index 18.6 02/16/2024 11:20 AM MANAGER BANQUET Plan of Treatment Not on file Medical Devices Implanted Type Area Orthodontic Technician Assistant Device Identifier Shelf Expiration Date Model / Serial / Lot Brest Implant Bilateral: Breast Procedures Procedure Name Priority Date/Time Associated Diagnosis Comments URINE CULTURE Routine 02/16/2024 1:00 PM MANAGER BANQUET Left inguinal pain POCT URINALYSIS DIPSTICK Routine 02/16/2024 11:25 AM MANAGER BANQUET Left inguinal pain SCREENING MAMMOGRAM BILATERAL W ALVINO W IMPLANTS Schedule Routine, Read Routine (OP Routine) 12/20/2023 3:20 PM CDT Screening mammogram, encounter for HM DEXA SCAN Routine 11/25/2023 8:34 AM CDT COLONOSCOPY 07/05/2023 8:30 AM CDT HEPATITIS C ANTIBODY Routine 08/11/2021 8:13 AM CDT Encounter for hepatitis C screening test for low risk patient from Last 3 Months or Most Recently Relevant to Health Maintenance Results * Urine culture Urine, clean voided (02/16/2024 1:00 PM MANAGER BANQUET) Report Final Report: No growth Comment:Testing performed by : [facility], [address] [place] [address] Urine, clean voided 02/16/2024 1:00 PM MANAGER BANQUET 02/17/2024 12:44 AM MANAGER BANQUET Leslie Stanley 02/18/2024 7:02 AM MANAGER BANQUET Testing performed by [facility] ([phone]) Frieda Fatima NP LAB MICROBIOLOGY - GENERAL ORDERABLES Final Result [facility] [id number] Department of Laboratories [place], [place] [id number] * POCT urinalysis dipstick (02/16/2024 11:25 AM MANAGER BANQUET) Color, Urine, POC Light Yellow Clarity, ur, POC Clear Clear Glucose, ur, POC Negative Negative MG/DL Bilirubin, ur, POC Negative Negative, Small, Moderate, Large Ketones, ur, POC Negative Negative Specific [place], POC 1.015 1.003 - 1.030 Blood, ur, POC Negative Negative pH, ur, POC 7.0 5.0 - 8.0 Protein, ur, POC Negative Negative Urobilinogen, urine, POC 0.2 0.2 - 1.0 mg/dL Nitrite, ur, POC Negative Negative Leukocytes, ur, POC Negative Negative Lot Number [id number] Urine 02/16/2024 11:2 5 AM MANAGER BANQUET Frieda Fatima NP POINT OF CARE TEST ORDERAB LES Final Result * Screening Mammogram Bilateral W Alvino W Implants (12/20/2023 3:20 PM CDT) Anatomical Region Laterality Modality Breast Bilateral Mammography 12/20/2023 3:30 PM CDT Impressions 12/20/2023 3:30 PM CDT There is no mammographic evidence of malignancy. A 1 year screening mammogram is recommended. BI-RADS: 2 - Benign. The patient has been or will be contacted. The patient will be entered into a reminder system with a target due date of 1 year for her next mammogram. Electronically signed by: Darek Baptiste M.D. Narrative 12/20/2023 3:30 PM CDT EXAMINATION: SCREENING MAMMOGRAM BILATERAL W ALVINO W IMPLANTS ORDERING HEALTHCARE PROVIDER: SELF SCREENING MAMMOGRAM HISTORY: Routine screening mammography. COMPARISON: ??10/30/2022, 10/12/2021 10/03/2020, 09/10/2019, 09/04/2018 TECHNIQUE: Implant included and implant displaced CC and MLO views of the bilateral breasts were obtained with digital technique using breast tomosynthesis with C view. Computer aided detection was utilized. FINDINGS: DENSITY: The tissue of the bilateral breasts is heterogeneously dense, which may obscure small masses. BREASTS: Bilateral subpectoral silicone breast implants are reidentified. ??The presence of implants limits the sensitivity of mammography. ??The breast implants are unchanged in appearance with benign capsular calcifications again noted. ??There is no new suspicious finding in either breast on mammogram. us Self Screening Mammogram IMG MAMMO PROCEDURES Fi nal Result * HM DEXA SCAN (11/25/2023 8:34 AM CDT) us Historical Provider HEALTH MAINTENANCE Final Result * Colonoscopy (07/05/2023 8:30 AM CDT) Anatomical Region Laterality Modality Other Narrative Procedure Note Azael Hussein MD - 07/05/2023 8:30 AM CDT [facility] GI ENDOSCOPY Patient Name: Shena Horn Procedure Date: 07/05/2023 8:30 AM Date of : 1955 Admit Type: Outpatient Age: 67 Gender: Female Attending MD: Azael Hussein M.D. Room: [facility] ENDOSCOPY ROOM 06 Note Status: Finalized Procedure: Colonoscopy Indications: High risk colon cancer surveillance: Personalhistory of colonic polyps Referring MD: Providers: Azael Hussein M.D. Medicines: Monitored Anesthesia Care Complications: No immediate complications. Estimated Blood Loss: Estimated blood loss: none. Procedure: Pre-Anesthesia Assessment: - Prior to the procedure, a History and Physicalwas performed, and patient medications and allergieswere reviewed. The risks and benefits of the procedureand the sedation options and risks were discussed withthe patient. All questions were answered and informed consent was obtained. Patient identification and proposed procedure were verified. After reviewingthe risks and benefits, the patient was deemed in satisfactory condition to undergo the procedure.The anesthesia plan was to use monitored anesthesiacare (MAC). Immediately prior to administration of medications, the patient was re-assessed foradequacy to receive sedatives. The heart rate, respiratory rate, oxygen saturations, blood pressure, adequacyof pulmonary ventilation, and response to care were monitored throughout the procedure. The physical status of the patient was re-assessed after the procedure. The benefits, risks and alternatives of theprocedure and sedation were discussed and informed consentwas obtained. All questions were answered. Please referto the signed informed consent document in the medical record. The scope was passed under direct vision.The [id number]-[id number] colonoscope was introduced through theanus and advanced to the cecum, identified byappendiceal orifice and ileocecal valve. The colonoscopy was performed without difficulty. The patient tolerated the procedure well. The quality of the bowel preparation was good. Scope withdrawal time was 14 minutes. Scope withdrawal time was 15 minutes. Prep was administered in a split dose. Findings: The perianal and digital rectal examinations were normal. Two sessile polyps were found in the ascending colon. The polyps were8 to 10 mm in size. These polyps were removed with a hot snare.Resection and retrieval were complete. The left colon was moderately tortuous. Non-bleeding internal hemorrhoids were found during retroflexion. The hemorrhoids were small. The exam was otherwise without abnormality. Impression: - Two 8 to 10 mm polyps in the ascending colon, removed with a hot snare. Resected and retrieved. - Tortuous colon. - Non-bleeding internal hemorrhoids. - The examination was otherwise normal. Recommendation: - Patient has a contact number available for emergencies. The signs and symptoms of potential delayed complications were discussed with thepatient. Return to normal activities tomorrow. Written discharge instructions were provided to thepatient. - High fiber diet. - Continue present medications. - Await pathology results. - Repeat colonoscopy in 3 years for surveillance. Azael Hussein M.D. Azael Hussein M.D. 07/05/2023 9:03:17 AM . Number of Addenda: 0 Note Initiated On: 07/05/2023 8:30 AM Recognized by the [place] [employer] for promoting quality in endoscopy Azael Hussein MD ENDOSCOPY PROCEDURES Final Resul t * Hepatitis C antibody (08/11/2021 8:13 AM CDT) Hep C Ab Nonreactive Nonreactive [facility] Comment: Interpretive Data Nonreactive: Antibodies to HCV not detected. Does NOT exclude the possibility of recent exposure to HCV. Equivocal: Equivocal for HCV antibodies. Supplemental molecular testing will be automatically performed to determine infection status in accordance with current CDC screening recommendations. ?? Reactive: Positive for HCV antibodies. ??This may represent current or past HCV infection. Supplemental molecular testing will be automatically performed to determine ??current infection status in accordance with current CDC screening recommendations. Interpretive data was last revised on 2019. Blood 08/11/2021 8:13 AM CDT 08/11/2021 1:58 PM CDT Jose Morales MD LAB MICROBIOLOGY - GENERAL ORDERABLES Final Result Performing Organization Address City/State/[facility] Co md Phone Number [place] [address] [facility] [place] [address] from Last 3 Months or Most Recently Relevant to Health Maintenance Insurance [facility] [id number] [facility] [id number] [facility] Care Teams Auto Design Checker Relationship Specialty Start Date End Date Jose Morales MD [facility] [place] [address] PCP - General Family Medicine 08/10/21 Unknown, Notinfile 07/13/21 Kellie Colin MD [address] [place] [address] Referring Physician Dermatology 08/10/21
--- OUTSIDE RECORDS SUMMARY | 2024-04-26 23:34 | XMS_ITS | Clinical Summary ---
Author Organization [facility] Address [address] [place] [address]. [place], [place] [id number] [place] [id number] Care Team Providers Care Bss Solution Architect Name Role Phone Jose Morales MD Primary Care Provider [phone] Social History Tobacco Use Types Packs/Day Years Used Date Smoking Tobacco: Never Assessed Comments Unknown Sex and Gender Information Value Date Recorded Sex Assigned at Not on file Legal Sex Female 6:45 PM CDT Gender Identity Not on file Sexual Orientation Not on file Plan of Treatment Health Maintenance Due Date Last Done Comments Colorectal Cancer Screening Colonoscopy (10 Years) 1955 Hepatitis C 08/09/1973 Mammogram Screening 1995 Dexa Scan (General) 08/09/2020 01/14/2009 Pneumococcal Vaccine: 65+ Years (2 of 2 - PCV) 09/30/2021 09/30/2020 COVID-19 Vaccine ( - 2023-2 5 season) 2023 03/11/2021, 06/02/2020, 05/12/2020 Influenza Adult (#1) 2024 03/04/2021 RSV Immunization or 60+ Years (1 - 1-dose 75+ series) 08/09/2030 DTaP, Tdap and Td Vaccines ( 3 - Td or Tdap) 09/30/2030 09/30/2020, 12/10/2008 Zoster Vaccines Completed 04/09/2023, 12/27/2022 Meningococcal Vaccine Aged Out No guillermina vernon eligible based on patient's age to complete this topic RSV Immunizations Under 20 Months Aged Out No longer eligible b ased on patient's age to complete this topic Care Teams Bss Solution Architect Relationship Specialty Start Date End Date Jose Morales MD [address] [facility] [address] [id number] [place] [address] PCP - General FAMILY PRACTICE 08/25/23
--- OUTSIDE RECORDS SUMMARY | 2024-04-26 23:34 | XMS_ITS | Clinical Summary ---
Author Organization [facility] Address [address] [facility] [address] [place] [address] Phone Care Team Providers Care Pharmaceutical Plant Operator Name Role Phone Jose Morales MD Primary Care Provider Unknown, Notinfile Unavailable Unavailable Kellie Colin MD Unavailable Allergies Active Allergy Reactions Criticality Noted Date Comments Erythromycin Nausea And Vomiting,Unknown 2004 z pack ok Erythromycin Base Rash Medium 2021 Medications cholecalciferol (VITAMIN D-3) 5,000 unit tablet Take by mouth Active multivitamin tablet Take 1 tablet by mouth daily Active fluticasone propionate (FLONASE) 50 mcg/actuation nasal spray Administer 1 spray into each nostril as needed for rhinitis Active calcium-minerals- [id number] 200 mg calcium- 200 unit tablet Take [...] 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 Overview (2021): Proven on HOME haines/ negative margins ASCUS with positive high risk HPV 05/26/2015 Cataract 05/05/2015 Atrophic vaginitis 04/29/2015 Hammertoe 08/22/2013 Lipoma of other skin and subcutaneous tissue Overview (2021): Right medial forearm 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 Eczema 2010 Allergic rhinitis 10/14/2006 Carpal tunnel syndrome 12/14/2004 Encounters Date Type Department Care Team Description 02/17/2024 Telephone [facility] Primary Care at [address] [address] Jose Morales MD Appointment Request 02/16/2024 8:27 PM MAILING MACHINE ASSISTANT - 02/16/2024 11:59 PM MAILING MACHINE ASSIST[place] [address] Left inguinal pain Discharge Disposition: Discharge to home or self care 02/16/2024 11:15 AM MAILING MACHINE ASSISTANT Office Visit [facility] Convenient Care at [address] [address] Frieda Fatima NP Left inguinal pain (Primary Dx); Acute left lower quadrant pain 02/16/2024 Nurse Triage [facility] Primary Care at [address] [address] Jose Morales MD from Last 3 Months Immunizations Name Administration Dates Next Due Influenza, Quadrivalent, Hig h Dose, Preservative Free, Intrr 03/22/2022 Influenza, Unspecified 11/11/2022(Deferr ed: Patient Refused),04/04/2022(Deferred: Patient Refused),02/15/2022(Deferred: Patient Refused),04/04/2021(Deferred: Patient Refused),03/04/2021,03/18/2020(Deferre d: Patient Refused) Pneumococcal Polysaccharide PPV23 09/30/2020 Tdap 09/30/2020,12/10/2008 ZOSTER Recombinant 04/09/2023,12/27/2022 Surgical History Surgery Date Site/Laterality Comments BUNIONECTOMY 04/04/2012 - 04/03/2013 Right BUNIONECTOMY 04/04/2014 - 04/03/2015 Left TRANSUMBILICAL AUGMENTATION MAMMAPLASTY 04/04/2007 - 04/03/2008 MOHS SURGERY 04/04/2019 - 04/03/2020 AUGMENTATION MAMMAPLASTY 04/04/1985 - 04/03/1986 Bilateral original 1985, replaced 2008 CERVICAL BIOPSY W/ LOOP ELECTRODE EXCISION 04/04/2015 - 04/03/2016 COLONOSCOPY Medical History Medical History Date Comments 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 Cancer (CMS/HCC) (HCC) April 2019 Colon polyp GERD (gastroesophageal reflux disease) Diverticulosis Family History Medical History Relation Name Comments No Known Problems Brother 1 No Known Problems Brother 2 Heart disease Father Hakan Hopkins Hypertension Father Hakan Hopkins Stroke Father Hakan Hopkins Lung cancer Maternal Grandfather Breast cancer Maternal Grandmother Arthritis Mother Roman Hopkins COPD Mother Roman Hopkins Cancer Paternal Grandfather Ady Hopkins unknown primary Hypertension Paternal Grandmother Saranya Hopkins No Known Problems Sister 1 No Known Problems Sister 2 Ovarian cancer Neg Hx Thyroid cancer Neg Hx Relation Name Status Comments Brother 1 Alive Brother 2 Alive Father Hakan Hopkins Maternal Grandfather Maternal Grandmother Mother Roman Hopkins Paternal Grandfather Ady Hopkins Paternal Grandmother Saranya Hopkins Sister 1 Alive Sister 2 Alive Social [...] on file Legal Sex Female 2:56 AM MAILING MACHINE ASSISTANT Gender Identity Female 11/06/2023 2:47 PM CDT Sexual Orientation Straight 11/06/2023 2: 47 PM CDT 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 Not on file Not on file Not on file Obstetrics History Para Term AB IAB SAB Ectopic Multiple Livin g Live Births 1 1 1 Date Outcome GA Total Labor Labor/2nd/3rd Weight Sex Type Anes PTL Belkys A1 A5 Name Clin Term Last Filed Vital Signs Vital Sign Reading Time Taken Comments Blood Pressure 126/68 02/16/2024 11:20 AM MAILING MACHINE ASSISTANT Pulse 86 02/16/2024 11:20 AM MAILING MACHINE ASSISTANT Temperature 36.8 ??C (98.3 ??F) 02/16/2024 11:[address] Respiratory Rate 18 02/16/2024 11:20 AM MAILING MACHINE ASSISTANT Oxygen Saturation 99% 02/16/2024 11:20 AM MAILING MACHINE ASSISTANT Inhaled Oxygen Concentration - - Weight 47.6 kg (105 lb) 02/16/2024 11:20 AM MAILING MACHINE ASSISTANT Height 160 cm (5' 3 ) 02/16/2024 11:20 AM MAILING MACHINE ASSISTANT Body Mass Index 18.6 02/16/2024 11:20 AM MAILING MACHINE ASSISTANT Plan of Treatment Health Maintenance Due Date Last Done Comments Hepatitis B Screening 08/09/1973 Covid-19 Vaccine ( season) 2023 03/11/2021, 06/02/2020, 05/12/2020 Influenza Vaccine (#1) 2023 03/22/2022, 2020 Pneumococcal vaccine 65+ (2 of 2 - PCV) 05/18/2024 09/30/2020 Postponed from 09/30/2021 (Patient declined, but will receive in the future) Depression Screening 11/15/2024 11/16/2023, 05/18/2023, 01/10/2023, Additional history exists Fall Risk Assessment 11/15/2024 11/16/2023, 01/10/2023, 11/11/2022, Additional history exists Well Visit 65+ 11/15/2024 11/16/2023, 2021 Breast Cancer Screening-Mammogram 12/19/2024 12/20/2023, 10/30/2022, 10/12/2021 Osteoporosis Screening-Bone Density Scan 11/24/2025 11/25/2023, 04/01/2021, 01/14/2009 Colon Cancer Screening-Colonoscopy 07/04/2026 07/05/2023, 10/19/2019 DTaP/Tdap/Td Vaccine (3 - Td or Tdap) 09/30/2030 09/30/2020, 12/10/2008 Hepatitis C Screening Completed 08/11/2021 Zoster Vaccine Completed 04/09/2023, 12/27/2022 Medical Devices Implanted Type Area Linoleum Tile Floor Layer Device Identifier Shelf Expiration Date Model / Serial / Lot Brest Implant Bilateral: Breast Procedures Procedure Name Priority Date/Time Associated Diagnosis Comments URINE CULTURE Routine 02/16/2024 1:00 PM MAILING MACHINE ASSISTANT Left inguinal pain POCT URINALYSIS DIPSTICK Routine 02/16/2024 11:25 AM MAILING MACHINE ASSISTANT Left inguinal pain SCREENING MAMMOGRAM BILATERAL W [...] culture Urine, clean voided (02/16/2024 1:00 PM MAILING MACHINE ASSISTANT) Report Final Report: No growth Comment:Testing performed by : [facility], [address] [facility], [place]., [address] Urine, clean voided 02/16/2024 1:00 PM MAILING MACHINE ASSISTANT 02/17/2024 12:44 AM MAILING MACHINE ASSISTANT Narrative DULCE MARIA HAQUE - 02/18/2024 7:02 AM MAILING MACHINE ASSISTANT Testing performed by [facility] Microbiology Laboratory ([phone]) Frieda Fatima NP LAB MICROBIOLOGY - GENERAL ORDERABLES Final Result DULCE MARIA [id number] Department [place] [address] * POCT urinalysis dipstick (02/16/2024 11:25 AM MAILING MACHINE ASSISTANT) Color, Urine, POC Light Yellow Clarity, ur, POC Clear Clear Glucose, ur, POC Negative Negative MG/DL Bilirubin, ur, POC Negative Negative, Small, Moderate, Large Ketones, ur, POC Negative Negative Specific [place], POC 1.015 1.003 - 1.030 Blood, ur, POC Negative Negative pH, ur, POC 7.0 5.0 - 8.0 Protein, ur, POC Negative Negative Urobilinogen, urine, POC 0.2 0.2 - 1.0 mg/dL Nitrite, ur, POC Negative Negative Leukocytes, ur, POC Negative Negative Lot Number [id number] Urine 02/16/2024 11:2 5 AM MAILING MACHINE ASSISTANT Frieda Fatima NP POINT OF CARE TEST [...] HM DEXA SCAN (11/25/2023 8:34 AM CDT) Historical Provider [facility] EMERGENCY DEPARTMENT Final Result * Colonoscopy (07/05/2023 8:30 AM CDT) Anatomical Region Laterality Modality Other Narrative Procedure Note Azael Hussein MD - 07/05/2023 8:30 AM CDT [facility] Patient Name: Shena Lopez Procedure Date: 07/05/2023 8:30 AM Date of : 1955 Admit Type: Outpatient Age: 67 Gender: Female Attending MD: Azael Hussein M.D. Room: [facility] ENDOSCOPY ROOM 06 Note Status: Finalized Procedure: [...] The scope was passed under direct vision.The [id number] colonoscope was introduced through theanus and advanced [...] On: 07/05/2023 8:30 AM Recognized by the [employer] for promoting quality in endoscopy Azael Hussein MD ENDOSCOPY PROCEDURES Final Resul t * Hepatitis C antibody (08/11/2021 8:13 AM CDT) Pathologist [facility] Hep C Ab Nonreactive Nonreactive DULCE MARIA Comment: Interpretive Data Nonreactive: Antibodies to HCV [...] GENERAL ORDERABLES Final Result Performing Organization Address City/State/ZIP Co ks Phone Number DULCE MARIA [phone] [facility] Department [place] [address] from Last 3 Months or Most Recently Relevant to Health Maintenance Insurance [id number] [id number] [facility] [id number] [facility] [id number] [facility] Care Teams Pharmaceutical Plant Operator Relationship Specialty Start Date End Date Jose Morales MD [address] [place] [address] PCP - General Family Medicine 08/10/21 Unknown, Notinfile 07/13/21 Kellie Colin MD [address] [place] [address] Referring Physician Dermatology 08/10/21
== END 2024-04-25 10:50 | disposition home or self-care (01) ==
PROVIDERS: PCP Nurse Practitioner Family; Visit Provider Nurse Practitioner Family
DX: M25.521 Pain in right elbow (principal)
CPT/HCPCS: 73070

== ENCOUNTER 2024-05-09 09:40 | Outpatient (CLI) | payer OTHER, SELFPAY ==
--- NOTE | ~2024-05-09 | MR_ITS ---
EXAMINATION: MR MRCP wo/w con/w 3D wo ind DATE: 05/09/2024 10:58 INDICATION: Abnormal levels of other serum enzymes. TECHNIQUE: Magnetic resonance imaging (MRI) of the abdomen was performed without and with 10 mL Multi harrison intravenous contrast. Sequences included coronal T2-weighted SS-FSE, coronal T2-weighted FS SS- FSE, coronal T2-weighted FS FIESTA, axial T2-weighted FS FIESTA, axial T2-weighted FIESTA, sagittal T 2-weighted SS-FSE, axial T1-weighted dual-echo FSPGR, axial T2-weighted SS-FSE, axial T1-weighted LAV A, axial T2-weighted STIR FSE. Thick-slab T2-weighted FRFSE-XL images were obtained for magnetic reso nance cholangiopancreatography (MRCP). Rotating maximum intensity projection 3-D reconstructions of t he volumetric data were created by the technologist. Postcontrast sequences included a time course of axial T1-weighted LAVA. COMPARISON: CT dated 02/16/2024 FINDINGS: ABDOMEN MRI: Heart size is normal. No pericardial or pleural effusion. Bilateral breast implants. Liver, gallbladd er, spleen, pancreas and bilateral adrenal glands are normal. Bilateral T2 hyperintense nonenhancing renal cysts measuring 2.5 cm on the left and the largest of 3 cysts on the right measuring 9 mm. Visu alized bowels are unremarkable with no obstruction. No pathologically enlarged abdominal lymphadenopa thy. Mild lumbar dextrocurvature with severe spondylosis. Fibrofatty degenerative endplate changes at L2-L3 and fibrovascular degenerative endplate changes at L1-L2 and L3-L4. ABDOMEN MRCP: No intra-axial hepatic biliary ductal dilation. The common bile duct measures up to 5 mm in maximal d iameter tapering the distal duct. There is a sharp kink in the course of the distal common hepatic du ct which measures up to 4 mm maximal diameter. No intraluminal filling defects to suggest choledochol ithiasis. IMPRESSION: 1. Normal liver and gallbladder with no cholelithiasis or intra or extrahepatic biliary ductal dilati on. Reviewed, dictated and finalized at location A. NISTRATIVE ASSISTANT OFFICE MANAGER IMPRESSION: 1. Normal liver and gallbladder with no cholelithiasis or intra or extrahepatic biliary ductal dilation.
--- OUTSIDE RECORDS SUMMARY | 2024-05-09 10:25 | XMS_ITS | Encounter Summary ---
Author Organization [facility] Address [address] [place] [address] Care Team Providers Care Track Maintainer Name Role Phone Isabella Macdonald MD Primary Care Provider [phone] Encounter Details Date Type Department Care Team (Latest Contact Info) Description 12/21/2004 Outpatient Historical [facility] Isabella Lozano MD [address] [place] [phone] SYMPTOMATIC FEMALE CLIMACTERIC STATE (Primary Dx) Social History Tobacco Use Types [...] as of this encounter Visit Diagnoses Diagnosis Symptomatic menopausal or female climacteric states- Primary documented in this encounter Care Teams Track Maintainer Relationship Specialty Start Date End Date Isabella Macdonald MD [address] [place] [address] PCP - General 10/20/01 11/12/20 documented as of this encounter
--- OUTSIDE RECORDS SUMMARY | 2024-05-09 10:25 | XMS_ITS | Encounter Summary ---
Author Organization [facility] Address [address] [place] [address] Care Team Providers Care Fur Tinter Name Role Phone Isabella Macdonald MD Primary Care Provider [phone] Encounter Details Date Type Department Care Team (Latest Contact Info) Description 04/05/2006 Outpatient Historical [facility] Isabella Lozano MD [address] [place] [phone] Abnormal Mammogram, Unspecified (Primary Dx) Social History [...] Primary documented in this encounter Care Teams Fur Tinter Relationship Specialty Start Date End Date Isabella Macdonald MD [address] [place] [address] PCP - General 10/20/01 11/12/20 documented as of this encounter
--- OUTSIDE RECORDS SUMMARY | 2024-05-09 10:25 | XMS_ITS | Encounter Summary ---
Author Organization [employer] Address [address] [place] [address] Care Team Providers Care Marine Rigger Name Role Phone Isabella Macdonald MD Primary Care Provider [phone] Encounter Details Date Type Department Care Team (Late st Contact Info) Description 01/13/2006 Outpatient Historical [facility] Internal Medicine [address] [place] [address] Isabella Macdonald MD [address] [place] [phone] Social History Tobacco Use Types Packs/Day Years [...] on filedocumented in this encounter Care Teams Marine Rigger Relationship Specialty Start Date End Date Isabella Macdonald MD [address] [place] [address] PCP - General 10/20/01 11/12/20 documented as of this encounter
--- OUTSIDE RECORDS SUMMARY | 2024-05-09 10:25 | XMS_ITS | Encounter Summary ---
Author Organization [email or web address] Address [address] [place] [address] Care Team Providers Care Scow Hand Name Role Phone Isabella Macdonald MD Primary Care Provider [phone] Encounter Details Date Type Department Care Team (Latest Contact Info) Description 03/23/2004 Outpatient [facility] Center for [facility] [address] [address] Isabella Macdonald MD [address] [place] [address] CARPAL TUNNEL SYNDROME (Primary Dx) Social History [...] Primary documented in this encounter Care Teams Scow Hand Relationship Specialty Start Date End Date Isabella Macdonald MD [address] [place] [address] PCP - General 10/20/01 11/12/20 documented as of this encounter
--- OUTSIDE RECORDS SUMMARY | 2024-05-09 10:25 | XMS_ITS | Clinical Summary ---
Author Organization [facility] Address [address] [place] [address] Care Team Providers Care Artist'S Representative Name Role Phone Jose Morales MD Primary Care Provider [phone] Social History Tobacco Use Types Packs/Day Years [...] 2 - PCV) 09/30/2021 09/30/2020 COVID-19 Vaccine (2023-2 5 season) 2023 03/11/2021, 06/02/2020, 05/12/2020 Influenza Adult (#1) 2024 03/04/2021 RSV Immunization or 60+ Years (1 - 1-dose 75+ series) 08/09/2030 DTaP, Tdap and Td Vaccines ( 3 - Td or Tdap) 09/30/2030 09/30/2020, 12/10/2008 Zoster Vaccines Completed 04/09/2023, 12/27/2022 Meningococcal B Vaccine Aged Out No l onger eligible based on patient's age to complete this topic Meningococcal Vaccine Aged Out No guillermina vernon eligible based on patient's age to complete this topic RSV Immunizations Under 20 Months Aged Out No longer eligible b ased on patient's age to complete this topic Care Teams Artist'S Representative Relationship Specialty Start Date End Date Jose Morales MD [address] [facility] [address] [place] [address] PCP - General FAMILY PRACTICE 08/25/23
--- OUTSIDE RECORDS SUMMARY | 2024-05-09 10:25 | XMS_ITS | Encounter Summary ---
Author Organization [employer] Address [address] [place] [address] Care Team Providers Care Mine Superintendent Name Role Phone Isabella Macdonald MD Primary Care Provider [phone] Encounter Details Date Type Department Care Team (Late st Contact Info) Description 03/15/2005 Outpatient Historical [facility] Internal Medicine [address] [place] [address] Isabella Macdonald MD [address] [place] [address] Social History Tobacco Use Types Packs/Day Years [...] Comments Blood Pressure 118/80 03/15/2005 2:15 PM PRODUCTION PLANNING SUPERVISOR Pulse - - Temperature - - Respiratory Rate - - Oxygen Saturation - - Inhaled Oxygen Concentration - - Weight 50.8 kg (112 lb) 03/15/2005 2:15 PM PRODUCTION PLANNING SUPERVISOR Height - - Body Mass Index - - documented in this encounter Plan of Treatment Not on file documented as of this encounter Visit Diagnoses Not on filedocumented in this encounter Care Teams Mine Superintendent Relationship Specialty Start Date End Date Isabella Macdonald MD [address] [place] [address] PCP - General 10/20/01 11/12/20 documented as of this encounter
--- OUTSIDE RECORDS SUMMARY | 2024-05-09 10:25 | XMS_ITS | Encounter Summary ---
Author Organization [employer] Address [address] [place] [address] Care Team Providers Care Rotary Rig Engine Operator Name Role Phone Isabella Macdonald MD Primary Care Provider [phone] Encounter Details Date Type Department Care Team (Latest Contact Info) Description 08/30/2004 Outpatient [facility] Center for [facility] [address] [address] Isabella Macdonald MD [address] [place] [phone] CARPAL TUNNEL SYNDROME (Primary Dx) Social History [...] Primary documented in this encounter Care Teams Rotary Rig Engine Operator Relationship Specialty Start Date End Date Isabella Macdonald MD [address] [place] [phone] PCP - General 10/20/01 11/12/20 documented as of this encounter
--- OUTSIDE RECORDS SUMMARY | 2024-05-09 10:25 | XMS_ITS | Encounter Summary ---
Author Organization [employer] Address [address] [place] [address] Care Team Providers Care Shredded Filler Cutter Operator Name Role Phone Isabella Macdonald MD Primary Care Provider [phone] Encounter Details Date Type Department Care Team (Latest Contact Info) Description 06/27/2004 Outpatient [facility] Center for [address] [address] Isabella Macdonald MD [address] [place] [address] CARPAL TUNNEL SYNDROME (Primary Dx) Social History [...] Primary documented in this encounter Care Teams Shredded Filler Cutter Operator Relationship Specialty Start Date End Date Isabella Macdonald MD [address] [place] [address] PCP - General 10/20/01 11/12/20 documented as of this encounter
--- OUTSIDE RECORDS SUMMARY | 2024-05-09 10:25 | XMS_ITS | Encounter Summary ---
Author Organization [facility] Address [address] [place] [address] Care Team Providers Care Underground Miner Name Role Phone Isabella Macdonald MD Primary Care Provider [phone] Encounter Details Date Type Department Care Team (Latest Contact Info) Description 03/15/2006 Outpatient Historical [facility] Isabella Lozano MD [address] [place] [phone] Other Screening Mammogram (Primary Dx) Social History [...] Primary documented in this encounter Care Teams Underground Miner Relationship Specialty Start Date End Date Isabella Macdonald MD [address] [place] [address] PCP - General 10/20/01 11/12/20 documented as of this encounter
--- OUTSIDE RECORDS SUMMARY | 2024-05-09 10:25 | XMS_ITS | Encounter Summary ---
Author Organization [employer] Address [address] [place] [address] Care Team Providers Care Emt Name Role Phone Isabella Macdonald MD Primary Care Provider [phone] Encounter Details Date Type Department Care Team (Late st Contact Info) Description 05/19/2006 Outpatient Historical [facility] Internal Medicine [address] [place] [address] Isabella Macdonald MD [address] [place] [phone] Social History Tobacco Use Types Packs/Day Years [...] Comments Blood Pressure 110/76 05/19/2006 11:30 AM VALUE STREAM LEADER Pulse - - Temperature - - Respiratory Rate - - Oxygen Saturation - - Inhaled Oxygen Concentration - - Weight 51.3 kg (113 lb) 05/19/2006 11:30 AM VALUE STREAM LEADER Height - - Body Mass Index - - documented in this encounter Plan of Treatment Not on file documented as of this encounter Visit Diagnoses Not on filedocumented in this encounter Care Teams Emt Relationship Specialty Start Date End Date Isabella Macdonald MD [address] [place] [address] PCP - General 10/20/01 11/12/20 documented as of this encounter
--- OUTSIDE RECORDS SUMMARY | 2024-05-09 10:25 | XMS_ITS | Encounter Summary ---
Author Organization [employer] Address [address] [place] [address] Care Team Providers Care Telephoto Installer Name Role Phone Isabella Macdonald MD Primary Care Provider [phone] Encounter Details Date Type Department Care Team (Latest Contact Info) Description 05/26/[address] [facility] Center for [address] [address] Isabella Macdonald MD [address] [place] [address] CARPAL TUNNEL SYNDROME (Primary Dx) Social History [...] Primary documented in this encounter Care Teams Telephoto Installer Relationship Specialty Start Date End Date Isabella Macdonald MD [address] [place] [address] PCP - General 10/20/01 11/12/20 documented as of this encounter
--- OUTSIDE RECORDS SUMMARY | 2024-05-09 10:25 | XMS_ITS | Encounter Summary ---
Author Organization [facility] Address [address] [place] [address] Care Team Providers Care Dock Supervisor Name Role Phone Isabella Macdonald MD Primary Care Provider [phone] Encounter Details Date Type Department Care Team (Latest Contact Info) Description 12/21/2004 Outpatient Historical [facility] Isabella Lozano MD [address] [place] [address] BREAST REPLACEMT BY OTHER MEANS [...] HEMATOLOGY ORDERABLES Final Result Performing Organization Address [facility] Phone Number INTERFACE SYSTEM Refer to clinic/hospital [...] HEMATOLOGY ORDERABLES Final Result Performing Organization Address [facility] de Phone Number INTERFACE SYSTEM Refer to [...] Primary documented in this encounter Care Teams Dock Supervisor Relationship Specialty Start Date End Date Isabella Macdonald MD [address] [place] [address] PCP - General 10/20/01 11/12/20 documented as of this encounter
--- OUTSIDE RECORDS SUMMARY | 2024-05-09 10:25 | XMS_ITS | Encounter Summary ---
Author Organization [employer] Address [address] [place] [address] Care Team Providers Care Uniform Attendant Name Role Phone Isabella Macdonald MD Primary Care Provider [phone] Encounter Details Date Type Department Care Team (Late st Contact Info) Description 04/13/2005 Outpatient Historical [facility] Internal Medicine [address] [place] [address] Isabella Macdonald MD [address] [place] [phone] Social History Tobacco Use Types Packs/Day Years [...] Comments Blood Pressure 108/72 04/13/2005 9:15 AM LOWERATOR OPERATOR Pulse - - Temperature - - Respiratory Rate - - Oxygen Saturation - - Inhaled Oxygen Concentration - - Weight 49.9 kg (110 lb) 04/13/2005 9:15 AM LOWERATOR OPERATOR Height - - Body Mass Index - - documented in this encounter Plan of Treatment Not on file documented as of this encounter Visit Diagnoses Not on filedocumented in this encounter Care Teams Uniform Attendant Relationship Specialty Start Date End Date Isabella Macdonald MD [address] [place] [address] PCP - General 10/20/01 11/12/20 documented as of this encounter
--- OUTSIDE RECORDS SUMMARY | 2024-05-09 10:25 | XMS_ITS | Encounter Summary ---
Author Organization [employer] Address [address] [place] [address] Care Team Providers Care Indoor Landscaper/Gardener Name Role Phone Isabella Macdonald MD Primary Care Provider [phone] Encounter Details Date Type Department Care Team (Late st Contact Info) Description 12/08/2004 Outpatient Historical [facility] Internal Medicine [address] [place] [address] Isabella Macdonald MD [address] [place] [phone] Social History Tobacco Use Types Packs/Day Years [...] on filedocumented in this encounter Care Teams Indoor Landscaper/Gardener Relationship Specialty Start Date End Date Isabella Macdonald MD [address] [place] [address] PCP - General 10/20/01 11/12/20 documented as of this encounter
--- OUTSIDE RECORDS SUMMARY | 2024-05-09 10:25 | XMS_ITS | Encounter Summary ---
Author Organization [employer] Address [address] [place] [address] Care Team Providers Care Engineer Process Name Role Phone Isabella Macdonald MD Primary Care Provider [phone] Encounter Details Date Type Department Care Team (Latest Contact Info) Description 04/24/2004 Outpatient [facility] Center for [address] [address] Isabella Macdonald MD [address] [place] [address] CARPAL TUNNEL SYNDROME (Primary Dx) Social History [...] Primary documented in this encounter Care Teams Engineer Process Relationship Specialty Start Date End Date Isabella Macdonald MD [address] [place] [phone] PCP - General 10/20/01 11/12/20 documented as of this encounter
--- OUTSIDE RECORDS SUMMARY | 2024-05-09 10:25 | XMS_ITS | Encounter Summary ---
Author Organization [employer] Address [address] [place] [address] Care Team Providers Care Financial Investment Manager Name Role Phone Isabella Macdonald MD Primary Care Provider [phone] Encounter Details Date Type Department Care Team (Latest Contact Info) Description 07/29/2004 Outpatient [facility] Center for [address] [address] Isabella Macdonald MD [address] [place] [address] CARPAL TUNNEL SYNDROME (Primary Dx) Social History [...] Primary documented in this encounter Care Teams Financial Investment Manager Relationship Specialty Start Date End Date Isabella Macdonald MD [address] [place] [phone] PCP - General 10/20/01 11/12/20 documented as of this encounter
--- OUTSIDE RECORDS SUMMARY | 2024-05-09 10:25 | XMS_ITS | Encounter Summary ---
Author Organization [employer] Address [address] [place] [address] Care Team Providers Care Slitter And Rewinder Name Role Phone Isabella Macdonald MD Primary Care Provider [phone] Encounter Details Date Type Department Care Team (Late st Contact Info) Description 05/04/2005 Orders Only [facility] Internal Medicine [address] [place] [address] Isabella Macdonald MD [facility] [address] [place] [address] Social History Tobacco Use Types [...] HOME PHONE: PATIENT`S WORK PHONE: PATIENT`S INSURANCE: [facility] WHO TOOK THE CALL: Tamia Rutledge L GENERAL INFORMATION PATIENT STATUS: Established Patient. LAST VISIT: 04/13/05 ALTERNATIVE PHONE NUMBER: [phone] WHO CALLED: Patient called. PHARMACY NUMBER: [phone] SECTION 1: Pt is requesting scripts for Nasonex and Chuck-D 1 po qd # 90, to be called out to [facility]./wlf DOCTOR`S RESPONSE: ernie 05/04/05 at 12:54 pm MEDICATIONS: Call in to Pharmacy NASONEX NASAL SUSPENSION 50 MCG/ACT, 2 sprays each nostril q day, 3 Dispensed, 3 Fills, status: CONTINUED, 05/04/2005. still unsure of dose of chuck -d SECTION 2: Pt is requesting 90 day scripts on both of these medications./wlf FINAL ACTION: jordan 05/04/05 at 03:29 pm Spoke with patient 05/04/05 at 03:29 pm. SECTION 3: Pt is taking Chuck-D 12 hr 60-120 mg 1 po bid # 180./wlf DOCTOR`S RESPONSE: ernie 05/04/05 at 04:32 pm MEDICATIONS: CHUCK-D 12 HOUR ORAL TABLET 12 HR 60-120 [...] on filedocumented in this encounter Care Teams Slitter And Rewinder Relationship Specialty Start Date End Date Isabella Macdonald MD [address] [place] [address] PCP - General 10/20/01 11/12/20 documented as of this encounter
--- OUTSIDE RECORDS SUMMARY | 2024-05-09 10:26 | XMS_ITS | Encounter Summary ---
Author Organization [employer] Address [address] [place] [address] Care Team Providers Care Housing Relocation Name Role Phone Isabella Macdonald MD Primary Care Provider [phone] Encounter Details Date Type Department Care Team (Late st Contact Info) Description 07/30/2003 Outpatient Historical [facility] Internal Medicine [address] [place] [address] Isabella Macdonald MD [address] [place] [address] Social History Tobacco Use Types Packs/Day Years [...] on filedocumented in this encounter Care Teams Housing Relocation Relationship Specialty Start Date End Date Isabella Macdonald MD [address] [place] [phone] PCP - General 10/20/01 11/12/20 documented as of this encounter
--- OUTSIDE RECORDS SUMMARY | 2024-05-09 10:26 | XMS_ITS | Patient Health Summary ---
Author Organization [facility] Address [address] [place] [address] Care Team Providers Care Tapeman Name Role Phone Isabella Macdonald MD Primary Care Provider [phone] Note from [facility],non-owned Affiliates and Associated Physician Practices is amultiple site organization consisting of ambulatory clinics and hospital sitesin [place], [place], [place] and [place]. This disclosure is being madepursuant to the Care Everywhere program and may not contain all information available regarding this patient. Last updated 17.[facility] Allergies * Erythromycin(Nausea and/or Vomiting) Medications * [...] CDT 07/04/2017 Narrative Resulting Agency Comment [facility] [place] [address] [facility] ??[facility] [id number] Eri Regalado APRN-SAP [place] ANALYST LAB - MICR OBIOLOGY ORDERABLES Performing Organization Address City/State/[facility] Co de Phone Number [facility] ACCOUNT BILL [address] [place] [address] * (ABNORMAL) URINALYSIS AUTO - POINT OF CARE (AMB) STL (07/04/2017 3:21 PM CDT) Clarity UA POCT clear Color UA POCT yellow Leukocyte UA 15+ Negative Nitrite UA POCT negative Negative Urobilinogen UA 0.2 0.1 - 1.0 Protein UA POCT 15+ Negative pH UA 6.0 5.0 - 8.0 pH units Blood UA 5-10 Negative Specific [place] UA POCT 1.010 1.002 - 1.030 Ketone UA negative Negative Bilirubin UA POCT negative Negative Glucose UA negative Negative Expiration Date 05/04/2018 Lot # [id number] QC Verified Yes Yes Urine URINE / Unknown 07/04/2017 3 :21 PM CDT Eri Regalado APRN-SAP SD ANALYST LAB - POIN T OF CARE ORDERABLES Care Teams Tapeman Relationship Specialty Start Date End Date Isabella Macdonald MD PCP - General Internal Medicine 07/04/17
--- OUTSIDE RECORDS SUMMARY | 2024-05-09 10:26 | XMS_ITS | Encounter Summary ---
Author Organization [employer] Address [address] [place] [address] Care Team Providers Care Bus Assistant Name Role Phone Isabella Macdonald MD Primary Care Provider [phone] Encounter Details Date Type Department Care Team (Late st Contact Info) Description 03/30/2002 Outpatient Historical [facility] Isabella Macdonald MD [address] [place] [phone] Social History Tobacco Use Types Packs/Day Years [...] on filedocumented in this encounter Care Teams Bus Assistant Relationship Specialty Start Date End Date Isabella Macdonald MD [address] [place] [address] PCP - General 10/20/01 11/12/20 documented as of this encounter
--- OUTSIDE RECORDS SUMMARY | 2024-05-09 10:26 | XMS_ITS | Encounter Summary ---
Author Organization [employer] Address [address] [place] [address] Care Team Providers Care Deputy Clerk Of Superior Court Name Role Phone Isabella Macdonald MD Primary Care Provider [phone] Encounter Details Date Type Department Care Team (Late st Contact Info) Description 07/25/2007 Orders Only [facility] Internal Medicine [address] [place] [address] Isabella Macdonald MD [facility] [address] [place] [address] Social History Tobacco Use Types [...] HOME PHONE: PATIENT`S WORK PHONE: PATIENT`S INSURANCE: [facility] WHO TOOK THE CALL: Tamia Rutledge [...] on filedocumented in this encounter Care Teams Deputy Clerk Of Superior Court Relationship Specialty Start Date End Date Isabella Macdonald MD [address] [place] [address] PCP - General 10/20/01 11/12/20 documented as of this encounter
--- OUTSIDE RECORDS SUMMARY | 2024-05-09 10:26 | XMS_ITS | Encounter Summary ---
Author Organization [employer] Address [address] [place] [address] Care Team Providers Care Global Product Manager Name Role Phone Isabella Macdonald MD Primary Care Provider [phone] Encounter Details Date Type Department Care Team (Late st Contact Info) Description 09/19/2007 Outpatient Historical [facility] Internal Medicine [address] [place] [address] Isabella Macdonald MD [address] [place] [address] Social History Tobacco Use Types Packs/Day Years [...] on filedocumented in this encounter Care Teams Global Product Manager Relationship Specialty Start Date End Date Isabella Macdonald MD [address] [place] [address] PCP - General 10/20/01 11/12/20 documented as of this encounter
--- OUTSIDE RECORDS SUMMARY | 2024-05-09 10:26 | XMS_ITS | Encounter Summary ---
Author Organization [employer] Address [address] [place] [address] Care Team Providers Care Cafe Aide Name Role Phone Isabella Macdonald MD Primary Care Provider [phone] Encounter Details Date Type Department Care Team (Late st Contact Info) Description 03/30/2002 Outpatient Historical [facility] Isabella Macdonald MD [address] [place] [address] Social History Tobacco Use Types Packs/Day Years [...] on filedocumented in this encounter Care Teams Cafe Aide Relationship Specialty Start Date End Date Isabella Macdonald MD [address] [place] [address] PCP - General 10/20/01 11/12/20 documented as of this encounter
--- OUTSIDE RECORDS SUMMARY | 2024-05-09 10:26 | XMS_ITS | Referral Summary ---
Author Organization [facility] Address [address] [facility] [address] Care Team Providers Care Tire Bladder Maker Name Role Phone Isabella Macdonald MD Primary Care Provider [phone] Source Comments [facility],non-owned Affiliates and Associated Physician Practices is amultiple site organization consisting of ambulatory clinics and hospital sitesin [place], [place], [place] and [place]. This disclosure is being madepursuant to the Care Everywhere program and may not contain all information available regarding this patient. Last updated 17.[facility] Allergies Active Allergy Reactions Criticality Noted Date [...] of Treatment Not on file Care Teams Tire Bladder Maker Relationship Specialty Start Date End Date Isabella Macdonald MD PCP - General Internal Medicine 07/04/17
--- OUTSIDE RECORDS SUMMARY | 2024-05-09 10:26 | XMS_ITS | Encounter Summary ---
Author Organization [employer] Address [address] [place] [address] Care Team Providers Care Munitions Handler Supervisor Name Role Phone Isabella Macdonald MD Primary Care Provider [phone] Encounter Details Date Type Department Care Team (Late st Contact Info) Description 09/06/2002 Outpatient Historical [facility] Internal Medicine [address] [place] [address] Isabella Macdonald MD [address] [place] [address] Social History Tobacco Use Types Packs/Day Years [...] on filedocumented in this encounter Care Teams Munitions Handler Supervisor Relationship Specialty Start Date End Date Isabella Macdonald MD [address] [place] [address] PCP - General 10/20/01 11/12/20 documented as of this encounter
--- OUTSIDE RECORDS SUMMARY | 2024-05-09 10:26 | XMS_ITS | Encounter Summary ---
Author Organization [facility] Address [address] [facility] Attn: Epic Prelude ADT [place] [address] Care Team Providers Care Telecommunications Project Manager Name Role Phone Isabella Macdonald MD Primary Care Provider [phone] Encounter Details Date Type Department Care Team (Late st Contact Info) Description 09/19/2007 Outpatient Historical Isabella Macdonald MD [address] [place] [address] Social History Tobacco Use Types Packs/Day Years [...] on filedocumented in this encounter Care Teams Telecommunications Project Manager Relationship Specialty Start Date End Date Isabella Macdonald MD [address] [place] [phone] PCP - General 10/20/01 11/12/20 documented as of this encounter
--- OUTSIDE RECORDS SUMMARY | 2024-05-09 10:26 | XMS_ITS | Encounter Summary ---
Author Organization [employer] Address [address] [place] [address] Care Team Providers Care Board Of Directors Name Role Phone Isabella Macdonald MD Primary Care Provider [phone] Encounter Details Date Type Department Care Team (Late st Contact Info) Description 08/29/2002 Outpatient Historical [facility] Internal Medicine [address] [place] [address] Isabella Macdonald MD [address] [place] [address] Social History Tobacco Use Types Packs/Day Years [...] on filedocumented in this encounter Care Teams Board Of Directors Relationship Specialty Start Date End Date Isabella Macdonald MD [address] [place] [address] PCP - General 10/20/01 11/12/20 documented as of this encounter
--- OUTSIDE RECORDS SUMMARY | 2024-05-09 10:26 | XMS_ITS | Encounter Summary ---
Author Organization [facility] Address [address] [facility] [address] Attn: Epic Prelude ADT [place] [address] Care Team Providers Care Vascular Technologist Sonographer Name Role Phone Isabella Macdonald MD Primary Care Provider [phone] Encounter Details Date Type Department Care Team (Late st Contact Info) Description 09/19/2007 Outpatient Historical Isabella Macdonald MD [address] [place] [address] Social History Tobacco Use Types Packs/Day Years [...] on filedocumented in this encounter Care Teams Vascular Technologist Sonographer Relationship Specialty Start Date End Date Isabella Macdonald MD [address] [place] [address] PCP - General 10/20/01 11/12/20 documented as of this encounter
--- OUTSIDE RECORDS SUMMARY | 2024-05-09 10:26 | XMS_ITS | Clinical Summary ---
Author Organization [facility] Address [address] [place] [address] Care Team Providers Care Specialty Finishing Utility Person Name Role Phone Unavailable Primary Care Provider [...] Take 1 Tablet by mouth daily. Active [place]-3 Fatty Acids 300 mg Capsule Take by mouth. Activ e L.ACID/L.CASEI/B. BIF/B.АНДРЕЙ/FOS (PROBIOTIC BLEND ORAL) Take by mouth. Activ e Magnesium Malate 16.2 % Powder by Misc.(Non-Drug; Combo Route) route. Active flunisolide (NASALIDE) 25 mcg (0.025 %) [place], Non-AerosolIndica tions:Acute nonseasonal allergic rhinitis due to [...] COVID-19 VACCINE - EMERGENCY USE AUTHORIZATION, MRNA, [id number](PF) 30 MCG/0.3 ML IM SUSP 06/02/2020,05/12/2020 (PNEUMOVAX [...] Mi MD - 10/19/2019 2:26 PM CDT [facility] Endoscopy Patient Name: Nara Lopez Procedure Date: [...] results. - If you are active on [employer], you will receive the biopsy results as a message via that account. If you do not have [employer] account, you will receive a call from my office regarding your results. If you do not hear from us about your results within a week, please contact our office at [phone] . Satya Mi MD 10/19/2019 2:26:16 PM This report has been signed electronically. Number of Addenda: [address]; [place] [address] us Sayta Mi MD GI PROCEDURE ORDERABLES Final Result [...] follow. Dictated by Dr. Adriano Hudson MD [facility] Isabella Macdonald MD DIAGNOSTIC IMAGING ORDERABLE S Final Result from Last 3 Months or Most Recently Relevant to Health Maintenance Insurance [facility] [id number] RX [facility] [employer] MEDIMPACT Member Subscriber Plan / Payer (Ef fective for All Dates) Name:NARA LOPEZ Relation to Subscriber:Self Name:Nara Lopez Payer ID:Not on file Group ID:[id number] Type:RX Medicare Part D Address: [place] Advance Directives For more information, please contact: [phone] * Full Code (Latest Code Status on [...]
--- OUTSIDE RECORDS SUMMARY | 2024-05-09 10:26 | XMS_ITS | Encounter Summary ---
Author Organization [employer] Address [address] [place] [address] Care Team Providers Care Editor Name Role Phone Isabella Macdonald MD Primary Care Provider [phone] Encounter Details Date Type Department Care Team (Late st Contact Info) Description 08/16/2002 Outpatient Historical [facility] Internal Medicine [address] [place] [address] Isabella Macdonald MD [address] [place] [address] Social History Tobacco Use Types Packs/Day Years [...] on filedocumented in this encounter Care Teams Editor Relationship Specialty Start Date End Date Isabella Macdonald MD [address] [place] [address] PCP - General 10/20/01 11/12/20 documented as of this encounter
--- OUTSIDE RECORDS SUMMARY | 2024-05-09 10:26 | XMS_ITS | Encounter Summary ---
Author Organization [employer] Address [address] [place] [address] Care Team Providers Care Software Security Consultant Name Role Phone Isabella Macdonald MD Primary Care Provider [phone] Encounter Details Date Type Department Care Team (Late st Contact Info) Description 11/25/2008 Outpatient Historical [facility] Isabella Macdonald MD [address] [facility] [address] [place] [address] Abdominal Pain, Other Specified Site [...] Narrative 11/25/2008 5:09 PM CDT ? [facility] ? [address] ?[facility] ??[address] ?Admit Date: 11/25/2008 ?NARA MARCUS ?Sex: F ?Admit Prov: CINTHYA, ISABELLA A ? Date: 1955 ?Primary Care Prov: CINTHYA, ISABELLA A ? CMRN: [id number] ?Room: [facility] ? SSN: [id number] ? IMAGING SERVICES ?Ordering Prov: N/A ? Accession Number: [id number] ?Interpretation ? PELVIC ULTRASOUND, 11/25/2008. ? CLINICAL [...] 13:38 Procedure Note Provider, Historical - 11/25/2008 [facility] [address] [place], [place] [address] Admit Date: 11/25/2008 NARA MARCUS Sex: F Admit Prov: JAYLON MACDONALDYVONNE Hussein Date: 1955 Primary Care Prov: ISABELLA MACDONALD CMRN: [id number] Room: [facility] SSN: [address] [place] [address] IMAGING SERVICES Ordering Prov: N/A Interpretation PELVIC [...] There is minimal free fluid in the xzg-rq-vniir a degrees which is considered physiologic. The [...] site documented in this encounter Care Teams Software Security Consultant Relationship Specialty Start Date End Date Isabella Macdonald MD [address] [place] [address] PCP - General 10/20/01 11/12/20 documented as of this encounter
--- OUTSIDE RECORDS SUMMARY | 2024-05-09 10:26 | XMS_ITS | Encounter Summary ---
Author Organization [employer] Address [address] [place] [address] Care Team Providers Care Intermediate Project Manager Name Role Phone Isabella Macdonald MD Primary Care Provider [phone] Encounter Details Date Type Department Care Team (Late st Contact Info) Description 02/06/2004 Outpatient Historical [facility] Internal Medicine [address] [place] [address] Isabella Macdonald MD [address] [place] [address] Social History Tobacco Use Types Packs/Day Years [...] on filedocumented in this encounter Care Teams Intermediate Project Manager Relationship Specialty Start Date End Date Isabella Macdonald MD [address] [place] [address] PCP - General 10/20/01 11/12/20 documented as of this encounter
--- OUTSIDE RECORDS SUMMARY | 2024-05-09 10:26 | XMS_ITS | Encounter Summary ---
Author Organization [employer] Address [address] [place] [address] Care Team Providers Care Firearms Inspector Name Role Phone Isabella Macdonald MD Primary Care Provider [phone] Encounter Details Date Type Department Care Team (Late st Contact Info) Description 03/17/2004 Outpatient Historical [facility] Internal Medicine [address] [place] [address] Isabella Macdonald MD [address] [place] [address] Social History Tobacco Use Types Packs/Day Years [...] on filedocumented in this encounter Care Teams Firearms Inspector Relationship Specialty Start Date End Date Isabella Macdonald MD [address] [place] [address] PCP - General 10/20/01 11/12/20 documented as of this encounter
--- OUTSIDE RECORDS SUMMARY | 2024-05-09 10:26 | XMS_ITS ---
Author Organization [facility] Address [address] [place] [address] Care Team Providers Care Fishing Floats Assembler Name Role Phone Unavailable Primary Care Provider [...]
--- OUTSIDE RECORDS SUMMARY | 2024-05-09 10:26 | XMS_ITS | Encounter Summary ---
Author Organization [employer] Address [address] [place] [address] Care Team Providers Care Design Sales Consultant Name Role Phone Isabella Macdonald MD Primary Care Provider [phone] Encounter Details Date Type Department Care Team (Late st Contact Info) Description 08/02/2006 Outpatient Historical [facility] Internal Medicine [address] [place] [address] Isabella Macdonald MD [address] [place] [address] Social History Tobacco Use Types Packs/Day Years Used Date Smoking Tobacco: Never Assessed Comments Unknown Sex and Gender Information Value Date Recorded Sex Assigned at Not on file Legal Sex Female 3:27 PM CDT Gender Identity Not on file Sexual Orientation Not on file documented as of this encounter Last Filed Vital Signs Vital Sign Reading Time Taken Comments Blood Pressure 116/74 08/02/2006 2:30 PM CDT Pulse - - Temperature - - Respiratory Rate - - Oxygen Saturation - - Inhaled Oxygen Concentration - - Weight 51.3 kg (113 lb) 08/02/2006 2:30 PM CDT Height - - Body Mass Index - - documented in this encounter Plan of Treatment Not on file documented as of this encounter Visit Diagnoses Not on filedocumented in this encounter Care Teams Design Sales Consultant Relationship Specialty Start Date End Date Isabella Macdonald MD [address] [place] [address] PCP - General 10/20/01 11/12/20 documented as of this encounter
--- OUTSIDE RECORDS SUMMARY | 2024-05-09 10:26 | XMS_ITS | Encounter Summary ---
Author Organization [employer] Address [address] [place] [address] Care Team Providers Care Job Forwarder Name Role Phone Isabella Macdonald MD Primary Care Provider [phone] Encounter Details Date Type Department Care Team (Late st Contact Info) Description 08/07/2007 Orders Only [facility] Internal Medicine [address] [place] [address] Isabella Macdonald MD [address] [place] [address] Social History Tobacco Use Types Packs/Day Years [...] on filedocumented in this encounter Care Teams Job Forwarder Relationship Specialty Start Date End Date Isabella Macdonald MD [address] [place] [phone] PCP - General 10/20/01 11/12/20 documented as of this encounter
--- OUTSIDE RECORDS SUMMARY | 2024-05-09 10:26 | XMS_ITS | Encounter Summary ---
Author Organization [email or web address] Address [address] [place] [address] Care Team Providers Care Small Piece Cutter Name Role Phone Isabella Macdonald MD Primary Care Provider [phone] Encounter Details Date Type Department Care Team (Late st Contact Info) Description 09/19/2007 Orders Only [facility] Internal Medicine [address] [place] [address] Isabella Macdonald MD [address] [place] [address] Social History Tobacco Use Types Packs/Day Years [...] on filedocumented in this encounter Care Teams Small Piece Cutter Relationship Specialty Start Date End Date Isabella Macdonald MD [address] [place] [phone] PCP - General 10/20/01 11/12/20 documented as of this encounter
--- OUTSIDE RECORDS SUMMARY | 2024-05-09 10:26 | XMS_ITS | Encounter Summary ---
Author Organization [employer] Address [address] [place] [address] Care Team Providers Care Nurse Quality Name Role Phone Isabella Macdonald MD Primary Care Provider [phone] Encounter Details Date Type Department Care Team (Late st Contact Info) Description 10/20/2001 Outpatient Historical [facility], Authorized P NO ADDRESS ON FILE [...] Primary documented in this encounter Care Teams Nurse Quality Relationship Specialty Start Date End Date Isabella Macdonald MD [address] [place] [address] PCP - General 10/20/01 11/12/20 documented as of this encounter
--- OUTSIDE RECORDS SUMMARY | 2024-05-09 10:26 | XMS_ITS | Encounter Summary ---
Author Organization [employer] Address [address] [place] [address] Care Team Providers Care Tank Insulator Rubber Name Role Phone Isabella Macdonald MD Primary Care Provider [phone] Encounter Details Date Type Department Care Team (Latest Contact Info) Description 02/06/2004 Outpatient [facility] [address] [address] Isabella Macdonald MD [address] [place] [phone] SKIN SENSATION DISTURB (Primary Dx) Social History [...] Primary documented in this encounter Care Teams Tank Insulator Rubber Relationship Specialty Start Date End Date Isabella Macdonald MD [address] [place] [phone] PCP - General 10/20/01 11/12/20 documented as of this encounter
--- OUTSIDE RECORDS SUMMARY | 2024-05-09 10:26 | XMS_ITS | Encounter Summary ---
Author Organization [employer] Address [address] [place] [address] Care Team Providers Care Ginner Helper Name Role Phone Isabella Macdonald MD Primary Care Provider [phone] Encounter Details Date Type Department Care Team (Late st Contact Info) Description 03/05/2004 Outpatient Historical [facility] Internal Medicine [address] [place] [phone] Isabella Macdonald MD [address] [place] [address] Social History Tobacco Use Types Packs/Day Years [...] on filedocumented in this encounter Care Teams Ginner Helper Relationship Specialty Start Date End Date Isabella Macdonald MD [address] [place] [phone] PCP - General 10/20/01 11/12/20 documented as of this encounter
--- OUTSIDE RECORDS SUMMARY | 2024-05-09 10:26 | XMS_ITS | Encounter Summary ---
Author Organization [employer] Address [address] [place] [address] Care Team Providers Care General Office Worker Name Role Phone Isabella Macdonald MD Primary Care Provider [phone] Encounter Details Date Type Department Care Team (Latest Contact Info) Description 09/13/2007 Outpatient Historical [facility] Internal Medicine [address] [place] [address] Isabella Macdonald MD [address] [address] [place] [phone] Special Screening for Other Specified Conditions Social [...] CDT) POTASSIUM 4.1 3.5 - 4.9 mmol/L [facility] TOTAL PROTEIN 7.3 6.3 - 8.6 g/dL [facility] GLUCOSE 94 65 - 99 mg/dL [facility] AST 26 12 - 32 U/L [facility] BUN 10 6 - 20 mg/dL [facility] CALCIUM 9.1 8.4 - 10.2 mg/dL [facility] ALBUMIN 4.7 3.4 - 4.8 g/dL [facility] CHLORIDE 103 96 - 108 mmol/L [facility] CREATININE 0.75 0.51 - 0.95 mg/dL [facility] ALT 25 0 - 31 U/L [facility] SODIUM 140 135 - 145 mmol/L [facility] ALKALINE PHOSPHATASE 57 35 - 104 U/L [facility] CO2 29 22 - 30 mmol/L [facility] BILIRUBIN TOTAL 0.3 0.2 - 1.0 mg/dL [facility] GFR, >60 >=60 mL/min/1.7 sq meter [facility] GFR >60 >=60 mL/min/1.7 sq meter [facility] Comment: Modification of Diet in Renal Disease (MDRD) study formula. Estimated GFR rate interpretative information for both Americans and non- Americans is available on the [facility] Intranet at: [email or web address] Select: Lab Policies and Procedures Select: Reference Ranges - GFR Blood specimen (specimen) 09/13/2007 10:01 AM CDT 09/13/2007 3:35 PM CDT Isabella Macdonald MD CHEMISTRY ORDERABLES Edited Performing Organization Address City/[facility]/ZIP Co de Phone Number [facility] CLIA# [id number] [address] [place] [address] * TSH (09/13/2007 10:01 AM CDT) TSH 1.43 0.27 - 4.20 uU/mL [facility] Blood specimen (specimen) 09/13/2007 10:01 AM CDT 09/13/2007 3:35 PM CDT Isabella Macdonald MD CHEMISTRY ORDERABLES Final R esult Performing Organization Address [facility] Co de Phone Number [facility] CLIA# [id number] [address] [place] [address] * (ABNORMAL) LIPID PANEL (09/13/2007 10:01 AM CDT) HDL 88(H) 40 - 59 mg/dL [facility] CHOLESTEROL 198 100 - 199 mg/dL [facility] CHOL/HDL RATIO 2.3 2.0 - 5.0 [facility] TRIGLYCERIDE 98 10 - 149 mg/dL [facility] LDL CALCULATED 90 <=99 mg/dL [facility] LIPID PANEL COMMENT See Below [facility] Comment: The adult ATP and pediatric NCEP classifications for lipids are available on the [facility] Intranet at: [email or web address] Select: Lab Policies and Procedures,Current Select: Lipid Panel Interpretation Blood specimen (specimen) 09/13/2007 10:01 AM CDT 09/13/2007 3:35 PM CDT Isabella Macdonald MD CHEMISTRY ORDERABLES Edited Performing Organization Address [facility]/ZIP Co de Phone Number [facility] CLIA# [id number] [address] [place] [address] * VITAMIN D 25 HYDROXY (09/13/2007 10:01 AM CDT) VITAMIN D, 25 OH, D2 <4 ng/mL [facility] Comment: 25-OHD3 indicates both endogenous production and supplementation. 25-OHD2 is an indicator of exogenous sources such as diet or supplementation. Therapy is based on measurement of Total 25-OHD, with levels <20 ng/mL indicative of Vitamin D deficiency while levels between 20 ng/mL and 30 ng/mL suggest insufficiency. Optimal levels are >30 ng/mL. ? Lab test performed by: [facility] [address] [place] [address] CORINNE VINSON MD VITAMIN D, 25 OH, TOTAL 40 20 - 100 ng/mL [facility] VITAMIN D, 25 OH, D3 40 ng/mL [facility] Blood specimen (specimen) 09/13/2007 10:01 AM CDT 09/13/2007 3:35 PM CDT Isabella Macdonald MD CHEMISTRY ORDERABLES Final R esult Performing Organization Address City/[facility]/ZIP Co de Phone Number [facility] CLIA# [id number] [address] [place] [address] * (ABNORMAL) CBC WITH DIFFERENTIAL (09/13/2007 10:01 AM CDT) HEMOGLOBIN 14.4 11.8 - 14.8 g/dL [facility] RDW 13.5 11.5 - 14.5 % [facility] WBC 3.9(L) 4.0 - 9.8 K/uL [facility] MCH 30.4 27.2 - 32.6 pg [facility] MPV 11.1 9.3 - 12.4 fL [facility] HEMATOCRIT 44.4(H) 35.5 - 44.0 % [facility] RDW-STDEV 46.5 37.1 - 48.7 fL [facility] RBC 4.73 3.90 - 4.90 M/uL [facility] MCHC 32.4 31.5 - 35.5 % [facility] MCV 93.9 82.0 - 99.0 fL [facility] PLATELETS 303 140 - 350 K/uL [facility] EOSINOPHILS 2 0 - 7 % [facility] EOSINOPHIL ABSOLUTE 0.07 0.00 - 0.70 K/uL [facility] LYMPHOCYTES 36 16 - 45 % [facility] LYMPHOCYTE ABSOLUTE 1.38 0.70 - 4.50 K/uL [facility] BASOPHILS 1 0 - 2 % [facility] BASOPHILS ABSOLUTE 0.03 0.00 - 0.20 K/uL [facility] MONOCYTES 11 3 - 13 % [facility] MONOCYTE ABSOLUTE 0.44 0.10 - 1.30 K/uL [facility] NEUTROPHILS 50 45 - 70 % [facility] NEUTROPHIL ABSOLUTE 1.93 1.90 - 7.00 K/uL [facility] Blood specimen (specimen) 09/13/2007 10:01 AM CDT 09/13/2007 3:35 PM CDT Isabella Macdonald MD HEMATOLOGY ORDERABLES Edited INTERFACE SYSTEM Refer to clinic/hospital department [facility] CLIA# [id number] [address] [place] [address] documented in this encounter Visit Diagnoses Diagnosis Special screening for other specified conditions(V82.89) Special screening for other specified conditions documented in this encounter Care Teams General Office Worker Relationship Specialty Start Date End Date Isabella Macdonald MD [address] [place] [phone] PCP - General 10/20/01 11/12/20 documented as of this encounter
--- OUTSIDE RECORDS SUMMARY | 2024-05-09 10:26 | XMS_ITS | Encounter Summary ---
Author Organization [employer] Address [address] [place] [address] Care Team Providers Care Bus Transportation Manager Name Role Phone Isabella Macdonald MD Primary Care Provider [phone] Encounter Details Date Type Department Care Team (Late st Contact Info) Description 09/13/2003 Outpatient Historical [facility] Internal Medicine [address] [place] [address] Isabella Macdonald MD [address] [place] [address] Social History Tobacco Use Types Packs/Day Years [...] filedocumented in this encounter Care Teams Bus Transportation Manager Relationship Specialty Start Date End Date Isabella Macdonald MD [address] [place] [phone] PCP - General 10/20/01 11/12/20 documented as of this encounter
--- OUTSIDE RECORDS SUMMARY | 2024-05-09 10:26 | XMS_ITS | Clinical Summary ---
Author Organization [facility] [employer] Address [address] [place] [address] Care Team Providers Care Cellulose Insulation Helper Name Role Phone Isabella Macdonald MD Primary Care Provider [phone] Source Comments [facility] [employer],non-owned Affiliates and Associated Physician Practices is amultiple site organization consisting of ambulatory clinics and hospital sitesin [place], [place], [place] and [place]. This disclosure is being madepursuant to the Care Everywhere program and may not contain all information available regarding this patient. Last updated 17.[employer] Allergies Active Allergy Reactions Criticality Noted Date [...] age to complete this topic Care Teams Cellulose Insulation Helper Relationship Specialty Start Date End Date Isabella Macdonald MD PCP - General Internal Medicine 07/04/17
--- OUTSIDE RECORDS SUMMARY | 2024-05-09 10:26 | XMS_ITS | Referral Summary ---
Author Organization [facility] Address [address] [place] [address] Phone Care Team Providers Care Director Of Food And Nutrition Name Role Phone Jose Morales MD Primary Care Provider [phone] Unknown, Notinfile Unavailable Unavailable Kellie Colin MD Unavailable [phone] Encounters Date Type Department Care Team Description 02/17/2024 Telephone [facility] Primary Care at [address] [address] Jose Morales MD Appointment Request 02/16/2024 8:27 PM SUSTAIN ENGINEER - 02/16/2024 11:59 PM SUSTAIN ENGINEER Hospital Encounter [address] [address] Left inguinal pain Discharge Disposition: Discharge to home or self care 02/16/2024 11:15 AM SUSTAIN ENGINEER Office Visit [facility] Care at [address] [address] Frieda Fatima NP Left inguinal pain (Primary Dx); Acute left lower quadrant pain 02/16/2024 Nurse Triage [facility] Primary Care at [address] [address] Jose Morales MD from Last [...] nostril as needed for rhinitis Active calcium-minerals- [id number] 200 mg calcium- 200 unit tablet Take [...] on file Legal Sex Female 2:56 AM SUSTAIN ENGINEER Gender Identity Female 11/06/2023 2:47 PM CDT Sexual Orientation Straight 11/06/2023 2: 47 PM CDT 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 Not on file Last Filed Vital Signs Vital Sign Reading Time Taken Comments Blood Pressure 126/68 02/16/2024 11:20 AM SUSTAIN ENGINEER Pulse 86 02/16/2024 11:20 AM SUSTAIN ENGINEER Temperature 36.8 ??C (98.3 ??F) 02/16/2024 11:[address] Respiratory Rate 18 02/16/2024 11:20 AM SUSTAIN ENGINEER Oxygen Saturation 99% 02/16/2024 11:20 AM SUSTAIN ENGINEER Inhaled Oxygen Concentration - - Weight 47.6 kg (105 lb) 02/16/2024 11:20 AM SUSTAIN ENGINEER Height 160 cm (5' 3 ) 02/16/2024 11:20 AM SUSTAIN ENGINEER Body Mass Index 18.6 02/16/2024 11:20 AM SUSTAIN ENGINEER Plan of Treatment Not on file Medical Devices Implanted Type Area Online Tutor Device Identifier Shelf Expiration Date Model / Serial / Lot Brest Implant Bilateral: Breast Procedures Procedure Name Priority Date/Time Associated Diagnosis Comments URINE CULTURE Routine 02/16/2024 1:00 PM SUSTAIN ENGINEER Left inguinal pain POCT URINALYSIS DIPSTICK Routine 02/16/2024 11:25 AM SUSTAIN ENGINEER Left inguinal pain SCREENING MAMMOGRAM BILATERAL W [...] culture Urine, clean voided (02/16/2024 1:00 PM SUSTAIN ENGINEER) Report Final Report: No growth Comment:Testing performed by : [facility], [address] [place] [address] Urine, clean voided 02/16/2024 1:00 PM SUSTAIN ENGINEER 02/17/2024 12:44 AM SUSTAIN ENGINEER Leslie Stanley 02/18/2024 7:02 AM SUSTAIN ENGINEER Testing performed by [facility] ([phone]) Frieda Fatima NP LAB MICROBIOLOGY - GENERAL ORDERABLES Final Result [facility] [address] Department of Laboratories [place], [place] [id number] * POCT urinalysis dipstick (02/16/2024 11:25 AM SUSTAIN ENGINEER) Color, Urine, POC Light Yellow Clarity, ur, POC Clear Clear Glucose, ur, POC Negative Negative MG/DL Bilirubin, ur, POC Negative Negative, Small, Moderate, Large Ketones, ur, POC Negative Negative Specific [place], POC 1.015 1.003 - 1.030 Blood, ur, POC Negative Negative pH, ur, POC 7.0 5.0 - 8.0 Protein, ur, POC Negative Negative Urobilinogen, urine, POC 0.2 0.2 - 1.0 mg/dL Nitrite, ur, POC Negative Negative Leukocytes, ur, POC Negative Negative Lot Number [id number] Urine 02/16/2024 11:2 5 AM SUSTAIN ENGINEER Frieda Fatima NP POINT OF CARE TEST [...] Hussein MD - 07/05/2023 8:30 AM CDT [facility] ENDOSCOPY Patient Name: Shena Horn Procedure Date: 07/05/2023 8:30 AM Date of : 1955 Admit Type: Outpatient Age: 67 Gender: Female Attending MD: Azael Hussein M.D. Room: [facility] END[facility]COPY ROOM 06 Note Status: Finalized Procedure: [...] The scope was passed under direct vision.The [id number] colonoscope was introduced through theanus and advanced [...] On: 07/05/2023 8:30 AM Recognized by the [employer] for promoting quality [...] GENERAL ORDERABLES Final Result Performing Organization Address City/State/[facility] Co ca Phone Number [facility] [address] [facility] Department [place] [address] from Last 3 Months or Most Recently Relevant to Health Maintenance Insurance [facility] [id number] [facility] [id number] [facility] Care Teams Director Of Food And Nutrition Relationship Specialty Start Date End Date Jose Morales MD [facility] [place] [address] PCP - General Family Medicine 08/10/21 Unknown, Notinfile 07/13/21 Kellie Colin MD [address] [place] [address] Referring Physician Dermatology 08/10/21
--- OUTSIDE RECORDS SUMMARY | 2024-05-09 10:26 | XMS_ITS | Clinical Summary ---
Author Organization [facility] Address [address] [place] [address] Phone Care Team Providers Care Air Plant Engineer Name Role Phone Jose Morales MD Primary Care Provider Unknown, Notinfile Unavailable Unavailable Kellie Colin MD Unavailable [phone] Allergies Active Allergy Reactions Criticality Noted Date Comments Erythromycin Nausea And Vomiting,Unknown 2004 z pack ok Erythromycin Base Rash Medium 2021 Medications cholecalciferol (VITAMIN D-3) 5,000 unit tablet Take by mouth Active multivitamin tablet Take 1 tablet by mouth daily Active fluticasone propionate (FLONASE) 50 mcg/actuation nasal spray Administer 1 spray into each nostril as needed for rhinitis Active calcium-minerals- [id number] 200 mg calcium- 200 unit tablet Take [...] Type Department Care Team Description 02/17/2024 Telephone [facility] Primary Care at [address] [address] Jose Morales MD Appointment Request 02/16/2024 8:27 PM CONVEYOR CONSOLE OPERATOR - 02/16/2024 11:59 PM CONVEYOR CONSOLE OPERATOR [place] [address] Left inguinal pain Discharge Disposition: Discharge to home or self care 02/16/2024 11:15 AM CONVEYOR CONSOLE OPERATOR Office Visit [facility] at [address] [address] Frieda Fatima NP Left inguinal pain (Primary Dx); Acute left lower quadrant pain 02/16/2024 Nurse Triage 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 Not on file Obstetrics History Para Term AB IAB SAB Ectopic Multiple Livin g Live Births 1 1 1 Date Outcome GA Total Labor Labor/2nd/3rd Weight Sex Type Anes PTL Belkys A1 A5 Name Clin Term Last Filed Vital Signs Vital Sign Reading Time Taken Comments Blood Pressure 126/68 02/16/2024 11:20 AM CONVEYOR CONSOLE OPERATOR Pulse 86 02/16/2024 11:20 AM CONVEYOR CONSOLE OPERATOR Temperature 36.8 ??C (98.3 ??F) 02/16/2024 11:[address] Respiratory Rate 18 02/16/2024 11:20 AM CONVEYOR CONSOLE OPERATOR Oxygen Saturation 99% 02/16/2024 11:20 AM CONVEYOR CONSOLE OPERATOR Inhaled Oxygen Concentration - - Weight 47.6 kg (105 lb) 02/16/2024 11:20 AM CONVEYOR CONSOLE OPERATOR Height 160 cm (5' 3 ) 02/16/2024 11:20 AM CONVEYOR CONSOLE OPERATOR Body Mass Index 18.6 02/16/2024 11:20 AM CONVEYOR CONSOLE OPERATOR Plan of Treatment Health Maintenance Due Date [...] 04/09/2023, 12/27/2022 Medical Devices Implanted Type Area Language Interpreter Device Identifier Shelf Expiration Date Model / Serial / Lot Brest Implant Bilateral: Breast Procedures Procedure Name Priority Date/Time Associated Diagnosis Comments URINE CULTURE Routine 02/16/2024 1:00 PM CONVEYOR CONSOLE OPERATOR Left inguinal pain POCT URINALYSIS DIPSTICK Routine 02/16/2024 11:25 AM CONVEYOR CONSOLE OPERATOR Left inguinal pain SCREENING MAMMOGRAM BILATERAL W [...] culture Urine, clean voided (02/16/2024 1:00 PM CONVEYOR CONSOLE OPERATOR) Report Final Report: No growth Comment:Testing performed by : [facility], [address], [place]., [address] Urine, clean voided 02/16/2024 1:00 PM CONVEYOR CONSOLE OPERATOR 02/17/2024 12:44 AM CONVEYOR CONSOLE OPERATOR Narrative DULCE MARIA HAQUE - 02/18/2024 7:02 AM CONVEYOR CONSOLE OPERATOR Testing performed by [facility] Microbiology Laboratory ([phone]) Frieda Fatima NP LAB MICROBIOLOGY - GENERAL ORDERABLES Final Result DULCE MARIA [id number] Department [place] [address] * POCT urinalysis dipstick (02/16/2024 11:25 AM CONVEYOR CONSOLE OPERATOR) Color, Urine, POC Light Yellow Clarity, ur, POC Clear Clear Glucose, ur, POC Negative Negative MG/DL Bilirubin, ur, POC Negative Negative, Small, Moderate, Large Ketones, ur, POC Negative Negative Specific Sobieski, POC 1.015 1.003 - 1.030 Blood, ur, POC Negative Negative pH, ur, POC 7.0 5.0 - 8.0 Protein, ur, POC Negative Negative Urobilinogen, urine, POC 0.2 0.2 - 1.0 mg/dL Nitrite, ur, POC Negative Negative Leukocytes, ur, POC Negative Negative Lot Number [id number] Urine 02/16/2024 11:2 5 AM CONVEYOR CONSOLE OPERATOR Frieda Fatima NP POINT OF CARE TEST [...] SCAN (11/25/2023 8:34 AM CDT) Historical Provider [facility] Final Result * Colonoscopy (07/05/2023 8:30 AM CDT) Anatomical Region Laterality Modality Other Narrative Procedure Note Azael Hussein MD - 07/05/2023 8:30 AM CDT [facility] GI ENDOSCOPY Patient Name: Shena Lopez Procedure Date: 07/05/2023 8:30 AM Date of : 1955 Admit Type: Outpatient Age: 67 Gender: Female Attending MD: Azael Hussein M.D. Room: [facility] ENDOSCOPY ROOM 06 Note Status: Finalized Procedure: [...] The scope was passed under direct vision.The [id number] colonoscope was introduced through theanus and advanced [...] C antibody (08/11/2021 8:13 AM CDT) Pathologist [facility] Hep C Ab Nonreactive Nonreactive DULCE MARIA [...] Final Result Performing Organization Address City/State/ZIP [place] Phone Number DULCE MARIA [phone] [facility] Department [place] [address] from Last 3 Months or Most Recently Relevant to Health Maintenance Insurance [id number] [id number] [facility] [id number] [facility] [id number] [facility] Care Teams Air Plant Engineer Relationship Specialty Start Date End Date Jose Morales MD [address] [place] [address] PCP - General Family Medicine 08/10/21 Unknown, Notinfile 07/13/21 Kellie Colin MD [address] [place] [address] Referring Physician Dermatology 08/10/21
--- OUTSIDE RECORDS SUMMARY | 2024-05-09 10:26 | XMS_ITS | Encounter Summary ---
Author Organization [employer] Address [address] [place] [address] Care Team Providers Care Drier Operator Head Name Role Phone Isabella Macdonald MD Primary Care Provider [phone] Encounter Details Date Type Department Care Team (Late st Contact Info) Description 01/23/2007 Orders Only [facility] Internal Medicine [address] [place] [address] Isabella Macdonald MD [facility] [address] [place] [address] Social History Tobacco Use Types [...] HOME PHONE: PATIENT`S WORK PHONE: PATIENT`S INSURANCE: [facility] WHO TOOK THE CALL: Tamia Rutledge [...] on filedocumented in this encounter Care Teams Drier Operator Head Relationship Specialty Start Date End Date Isabella Macdonald MD [address] [place] [phone] PCP - General 10/20/01 11/12/20 documented as of this encounter
--- OUTSIDE RECORDS SUMMARY | 2024-05-09 10:26 | XMS_ITS | Encounter Summary ---
Author Organization [facility] Address [address] [facility] Attn: Epic Prelude ADT MOHAMUD SAUCEDA [place] [address] Care Team Providers Care Welt Drawer Name Role Phone Isabella Macdonald MD Primary Care Provider [phone] Encounter Details Date Type Department Care Team (Late st Contact Info) Description 09/19/2007 Outpatient Historical Isabella Macdonald MD [address] [place] [phone] Social History Tobacco Use Types Packs/Day Years [...] on filedocumented in this encounter Care Teams Welt Drawer Relationship Specialty Start Date End Date Isabella Macdonald MD [address] [place] [phone] PCP - General 10/20/01 11/12/20 documented as of this encounter
--- OUTSIDE RECORDS SUMMARY | 2024-05-09 10:26 | XMS_ITS | Encounter Summary ---
Author Organization [employer] Address [address] [place] [address] Care Team Providers Care Pre Owned Sales Consultant Name Role Phone Isabella Macdonald MD Primary Care Provider [phone] Encounter Details Date Type Department Care Team (Late st Contact Info) Description 02/06/2003 Outpatient Historical [facility] Internal Medicine [address] [place] [phone] sIabella Macdonald MD [address] [place] [address] Social History Tobacco Use Types Packs/Day Years [...] on filedocumented in this encounter Care Teams Pre Owned Sales Consultant Relationship Specialty Start Date End Date Isabella Macdonald MD [address] [place] [phone] PCP - General 10/20/01 11/12/20 documented as of this encounter
--- OUTSIDE RECORDS SUMMARY | 2024-05-09 10:27 | XMS_ITS | Encounter Summary ---
Author Organization [facility] Address [address] [place] [address] Care Team Providers Care Advertising Teacher Name Role Phone Isabella Macdonald MD Primary Care Provider [phone] Encounter Details Date Type Department Care Team (Late st Contact Info) Description 10/14/2006 Outpatient Historical [facility] Internal Medicine [address] [place] [address] Leobardo Perry MD [address] [facility] [address] [place] [address] Social History Tobacco Use Types [...] on filedocumented in this encounter Care Teams Advertising Teacher Relationship Specialty Start Date End Date Isabella Macdonald MD [address] [place] [phone] PCP - General 10/20/01 11/12/20 documented as of this encounter
--- OUTSIDE RECORDS SUMMARY | 2024-05-09 10:27 | XMS_ITS | Encounter Summary ---
Author Organization [facility] Address [address] [place] [address] Care Team Providers Care Warehouse Supervisor 3Rd Shift Name Role Phone Isabella Macdonald MD Primary Care Provider [phone] Encounter Details Date Type Department Care Team (Late st Contact Info) Description 12/20/[address] [facility] Internal Medicine [address] [place] [address] Isabella Macdonald MD [address] [place] [phone] Social History Tobacco Use Types Packs/Day Years [...] on filedocumented in this encounter Care Teams Warehouse Supervisor 3Rd Shift Relationship Specialty Start Date End Date Isabella Macdonald MD [address] [place] [address] PCP - General 10/20/01 11/12/20 documented as of this encounter
--- OUTSIDE RECORDS SUMMARY | 2024-05-09 10:27 | XMS_ITS | Encounter Summary ---
Author Organization [employer] [facility] Address [address] [place] [address] Care Team Providers Care Manager User Interface Name Role Phone Isabella Macdonald MD Primary Care Provider [phone] Encounter Details Date Type Department Care Team (Late st Contact Info) Description 08/02/2006 Orders Only [facility] Internal Medicine [address] [place] [address] Isabella Macdonald MD [facility] [address] [place] [address] Social History Tobacco Use Types [...] on filedocumented in this encounter Care Teams Manager User Interface Relationship Specialty Start Date End Date Isabella Macdonald MD [address] [place] [address] PCP - General 10/20/01 11/12/20 documented as of this encounter
== END 2024-05-09 09:41 | disposition home or self-care (01) ==
PROVIDERS: PCP Nurse Practitioner Family; Visit Provider Nurse Practitioner Family
DX: R74.8 Abnormal levels of other serum enzymes (principal)
CPT/HCPCS: 74183; 76376; A9577

== ENCOUNTER 2024-09-01 08:46 | Outpatient (CLI) | payer OTHER, SELFPAY ==
--- NOTE | ~2024-09-01 | US_ITS ---
US abdomen complete EXAMINATION: US Abdomen Complete INDICATION: Elevated lipase. Right upper quadrant pain. PROCEDURE: Realtime High Resolution abdomen ultrasound. COMPARISON: No prior studies for comparison FINDINGS: Gallbladder within normal limits. No gallstones, pericholecystic fluid, gallbladder wall t hickening or biliary dilatation. Common bile duct measures 3 mm. Liver echotexture within normal limits without focal mass. Pancreas within normal limits. Pancreati c tail is obscured by bowel gas. Spleen is unremarkeable. Renal echotexture is within normal limits bilaterally without hydronephrosis, contour deforming mass or renal stone. Right kidney measures 11.5 cm. Left kidney measures 10.9 cm. There are bilateral renal cyst measuring 6 mm on the right and 1.9 cm on the left. Visualized aspects of the aorta and IVC are within normal limits. Portal vein is patent. No sonograph ic Tate's sign indicated by the technologist. IMPRESSION: 1: Unremarkable abdominal ultrasound. Reviewed, dictated and finalized at location A.
== END 2024-09-01 08:47 | disposition home or self-care (01) ==
LOC: MICIMG 08:46
PROVIDERS: PCP Nurse Practitioner Family; Visit Provider Nurse Practitioner Family
DX: R74.8 Abnormal levels of other serum enzymes (principal); N28.1 Cyst of kidney, acquired; R10.11 Right upper quadrant pain
CPT/HCPCS: 76700

== ENCOUNTER 2024-11-16 11:12 | Emergency (ER) | payer OTHER, SELFPAY ==
--- NOTE | 2024-11-16 11:16 | ED.SKABFB ---
HPI - Skin/Abscess/Foreign Bdy General Chief complaint: Wound/Laceration Stated complaint: Cat Bite Time Seen by Provider: 11/16/24 11:45 Source: patient and RN notes reviewed Mode of arrival: ambulatory Limitations: dementia History of Present Illness HPI narrative: 69-year-old female presents with concern for cap bite to her left hand. Reports 2 days ago she was playing with her cat when her cat bit her hand. Reports she cleaned with hydrogen peroxide and has been keeping it covered since then. She denies any decreased strength, sensation, range of motion in the hand or digits. She denies fever, body aches, chills, sweats. She denies drainage from the wound. MD complaint: other (Redness) Related Data Home Medications ?Medication ?Instructions ?Recorded ?Confirmed ?Last Taken ?Type fluticasone propionate 50 1 spray intranasal DAILY 02/21/24 08/22/24 Unknown History mcg/actuation nasal spray,suspension (Flonase Allergy Relief) minoxidil 5 % topical foam ea topical 02/21/24 08/22/24 Unknown History pantoprazole 20 mg tablet,delayed 20 mg PO .COMPLEX 04/24/24 08/22/24 Unknown History release Allergies Allergy/AdvReac Type Severity Reaction Status Date / Time erythromycin base Allergy Nausea Verified 11/16/24 11:19 Review of Systems Review of Systems: CONSTITUTIONAL: Denies malaise, chills, sweats, or fever. SKIN: Reports cap bite to the left hand. Denies purulent drainage, vesicles, bullae, numbness, pain beyond proportion MUSCULOSKELETAL: Denies joint pain or myalgia. All systems reviewed & are unremarkable except as noted in HPI and below PMFSH Past Medical History Medical History (Updated 11/16/24 @ 11:51 by Sis Ashford NP) Elevated fecal calprotectin Diarrhea Encounter to establish care Abdominal pain Elevated lipase Epigastric pain Diverticulosis Diverticulitis Metatarsalgia, right foot Over 65 years old Neoplasm of uncertain behavior of skin Plantar fasciitis, left Vaginismus Skin cancer Breast implant in situ FH: lung cancer History of abnormal cervical Pap smear loop conization 2016 Surgical History Surgical History Hx of colonoscopy 7.17.20 polyps/diverticulosis; 07/05/23 History of conization of cervix 3.30.2015 Family History Family History Father Hypertension Heart problem Cerebrovascular accident Mother Heart problem Grandparent Lung cancer Other Family history non-contributory Social History Social History Social History: Exercises regularly Smoking status: Never smoker Alcohol intake: current Drinks per week: 3 Substance use: never Living arrangements: with family Occupation/Education: retired Gender identity (if verbalized by the patient): Female Comments At time of signature, agree with nursing past medical, surgical, social and family history. There is no relevant family history pertinent to the presenting complaint Exam Narrative: GENERAL: Well-appearing, well-nourished, and in no acute distress. HEAD: Normocephalic, atraumatic. EYES: PERRLA, conjunctivae clear ENT: Mucous membranes moist. NECK: Supple. No lymphadenopathy CHEST: Clear to auscultation. No respiratory distress. HEART: Regular rate and rhythm. SKIN: Warm, dry. 3 cm linear laceration, it was not approximated noted to the palmar aspect of the left hand without drainage or surrounding Erythema, induration, tenderness, warmth. No vesicles, bullae, necrosis, ecchymosis, crepitus noted. NEURO: Alert and oriented x3. PSYCH: Normal mood and affect Course Course Emergency Course: Patient is aware of diagnosis, understands and agrees to treatment plan. Anticipatory guidance given. Patient agrees to follow-up as directed and is aware of reasons to seek care at the emergency department. Portions of this record may have been created with voice recognition software Level of Care: Express Care Visit Vital Signs Vital signs: Reviewed. MDM - Skin/Abscess/Foreign Bdy MDM Narrative Medical decision making narrative: I evaluated this in the express care. History is obtained from patient who is an independent historian and physical exam was performed.? Available medical records were reviewed. ? Exam findings and relevant testing show no acute concerns or changes; patient is non-toxic appearing and is in no distress. Does not appear at this time to be erythema multiforme, bullous, SJS, TEN; no evidence at this time to suggest RMSF, NSTI, endocarditis or Lyme disease; patient looks well, nontoxic and is tolerating oral intake; no neurologic signs or symptoms; no headache, photophobia or neck pain; afebrile.? Patient does not have history of of penetrating trauma, laceration, blunt trauma, recent surgery, immunosuppression, malignancy, obesity, alcoholism, corticosteroid use.? Discussed the importance of follow-up, patient agrees; question, cellulitis versus necrotizing soft tissue infection versus abscess.?? Patient is appropriate for outpatient treatment and follow-up. Critical Care Time Critical Care Time Critical Care Time: No Discharge Plan Discharge Clinical Impression: Cat bite Patient Disposition: Home Condition: Stable Instructions: Antibiotic Form, Animal Bite (ED) Additional Instructions: Please follow up with your Primary Care Doctor within 48-72 hours - call for an appointment. Rest and elevate affected area. Apply antibiotic ointment twice daily, cover the wound when it is at risk for getting contaminated. Wash with normal soap and water.. Take Motrin 600mg every 8 hours with food for pain. Please take Antibiotics as directed. If you experience any worsening redness, swelling, streaking (red lines), fever or chills please go to the ER Patient Language: Greenlandic Prescriptions: New fluconazole 150 mg tablet 150 mg PO Q48H 3 Days Qty: 2 0RF Rx Instructions: take one dose now, and a second dose if symptoms remain in 48 hours amoxicillin-pot clavulanate 875-125 mg tablet 1 tablet PO Q12H 10 Days Qty: 20 0RF No Action fluticasone propionate [Flonase Allergy Relief] 50 mcg/actuation spray,suspension 1 spray intranasal DAILY Rx Instructions: administer into each nostril minoxidil 5 % foam topical pantoprazole 20 mg tablet,delayed release (DR/EC) 20 mg PO .COMPLEX Rx Instructions: 20 mg orally Once mthly; estradiol 0.01 % (0.1 mg/gram) cream 1 g vaginal .COMPLEX Qty: 42.5 2RF Rx Instructions: 1 g once daily for 2 weeks; then 1 g one to three times per week Follow-up/Referrals: Delores Eaton APRN [Primary Care Provider] - Time of Disposition: 11:52
[2024-11-16 11:32] VITALS: BP 127/75; PULSE 69; RESP 18; TEMP 36.4; O2SAT 98
[2024-11-16] MEDS: TETANUS,DIPHTHERIA,AC PERTUSSIS ADULT (0.5 ML) BOOSTRIX IM (11:55)
== END 2024-11-16 12:05 | disposition home or self-care (01) ==
PROVIDERS: Emergency Provider Nurse Practitioner; PCP Nurse Practitioner Family
DX: S61.412A Laceration without foreign body of left hand, initial encounter (principal); W55.01XA Bitten by cat, initial encounter; Z23 Encounter for immunization; Z85.828 Personal history of other malignant neoplasm of skin
CPT/HCPCS: 90471; 90715; 99213; G0463